=== PATIENT | female | born 1990 | race Caucasian/White ===

== ENCOUNTER 2022-05-24 13:19 | Emergency (ER) | payer OTHER, SELFPAY ==
--- NOTE | ~2022-05-24 | XR_ITS ---
EXAMINATION: XR chest 2V DATE: 05/24/2022 13:42 INDICATION: Productive cough TECHNIQUE: PA and lateral views of the chest are obtained. COMPARISON: None available FINDINGS: The lungs are free of acute opacities. No pleural effusion or pneumothorax. The cardiomedia stinal silhouette is normal. There is mild thoracic spondylosis. IMPRESSION: 1. No acute cardiopulmonary abnormality. Reviewed, dictated and finalized at location A.
--- NOTE | 2022-05-24 13:26 | ED.URI ---
HPI - URI/Sore Throat General Chief Complaint: Upper Respiratory Infection Stated Complaint: Cough,Congestion,Sore Throat Time Seen by Provider: 05/24/22 13:30 Source: patient and RN notes reviewed Mode of arrival: ambulatory Limitations: no limitations History of Present Illness HPI Narrative: 31 y/o female with history of IBS, GERD, Sjogren's, RA, presented for c/o chest congestion x1 week. Cough is productive of green sputum, but now having more difficulty expectorating. Endorses sore throat is improving, low fever of 99 as her normal is 97 per pt; and endorses fatigue and sob with stairs/exertion. Reports more diarrhea lately than her baseline. no cough or vomiting. Denies sick contacts. Taking hot tea and mucinex for symptoms. Has taken several negative covid tests at home, last one last night. Has not taken methotrexate in almost 2 weeks due to this illness. MD elicited complaint: cough Related Data Home Medications Medication Instructions Recorded Confirmed albuterol sulfate 90 mcg/actuation 1 inh inhalation Q4H PRN Shortness 05/14/22 05/24/22 aerosol inhaler (ProAir HFA) Of Breath Or Wheezing cholecalciferol (vitamin D3) 25 25 mcg PO DAILY 05/14/22 05/24/22 mcg (1,000 unit) capsule fexofenadine-pseudoephedrine ER 1 tablet PO DAILY 05/14/22 05/24/22 180 mg-240 mg tablet,ext.release 24 hr (Nuzhat-D 24 Hour) fluticasone propionate 50 1 spray intranasal BID 05/14/22 05/24/22 mcg/actuation nasal spray,suspension folic acid 1 mg tablet 1 mg PO DAILY 05/14/22 05/24/22 hydroxychloroquine 200 mg tablet 200 mg PO DAILY 05/14/22 05/24/22 (Plaquenil) Allergies Allergy/AdvReac Type Severity Reaction Status Date / Time fluticasone AdvReac Severe Swelling Verified 05/24/22 13:37 [From Advair Diskus] of Lip/Tongue/Throat salmeterol AdvReac Severe Swelling Verified 05/24/22 13:37 [From Advair Diskus] of Lip/Tongue/Throat Review of Systems Review of Systems: ROS negative except as in HPI PMFSH Past Medical History Medical History ADHD Chronic headaches GERD with esophagitis IBS (irritable bowel syndrome) Mixed connective tissue disease Ovarian cyst Family History Family History Father Brain cancer Alcohol abuse Mother Alcohol abuse Hypertension Depression Sibling Asthma Depression Social History Social History Social History: Smoking status: Never smoker Second hand tobacco smoke exposure: No Alcohol intake: never Substance use: never Substance use type: does not use Gender identity (if verbalized by the patient): Female Exam Narrative: GENERAL: well-appearing, EYES: conjunctivae clear ENT: Mucous membranes moist. TMs pearly burton with dull light reflex bilaterally; no tragal tenderness. Oropharynx normal without lesions or exudate CHEST: Clear to auscultation, breath sounds equal. No wheezing, rhonchi, rales, or stridor. No respiratory distress, speaks in full sentences. HEART: Regular rate and rhythm. No murmur heard. SKIN: Warm, dry, no rash. NEURO: Alert and oriented x3. Course Course Emergency Course: Patient is aware of diagnosis, understands and agrees to treatment plan. Anticipatory guidance given. Patient agrees to follow-up as directed and is aware of reasons to seek care at the emergency department. Portions of this record may have been created with voice recognition software Level of Care: Express Care Visit Vital Signs Vital signs: Vital Signs Temperature 98.6 F 05/24/22 13:27 Pulse Rate 81 05/24/22 13:27 Respiratory Rate 18 05/24/22 13:27 Blood Pressure 121/84 05/24/22 13:27 Pulse Oximetry 100 05/24/22 13:27 Oxygen Delivery Room Air 05/24/22 13:27 Temperature 98.6 F 05/24/22 13:27 Pulse Rate 81 05/24/22 13:27 Re
[2022-05-24 13:27] VITALS: BP 121/84; PULSE 81; RESP 18; TEMP 37; O2SAT 100
== END 2022-05-24 14:15 | disposition home or self-care (01) ==
PROVIDERS: Emergency Provider Nurse Practitioner Family; PCP Family Medicine
DX: B34.1 Enterovirus infection, unspecified (principal); K21.9 Gastro-esophageal reflux disease without esophagitis; F90.9 Attention-deficit hyperactivity disorder, unspecified type
CPT/HCPCS: 71046; 99213; G0463

== ENCOUNTER 2022-08-25 14:18 | Emergency (ER) | payer OTHER, SELFPAY ==
--- NOTE | ~2022-08-25 | XR_ITS ---
XR chest 1V portable DATE: 08/25/2022 16:14 INDICATION: Chest pain upon inspiration. Congestion. Covid-positive. TECHNIQUE: Portable upright AP chest on 08/25/2022 at 1559 hours COMPARISON: 05/24/2022 2 view chest FINDINGS: Normal heart size. No hilar or mediastinal enlargement. The lungs are clear of infiltrate o r consolidation. No pleural effusion or pulmonary vascular congestion or pneumothorax. Minimal dextro scoliosis of the thoracic spine. IMPRESSION: No active cardiopulmonary disease Reviewed, dictated and finalized at location B. ESS PUMPER
[2022-08-25 14:31] VITALS: BP 126/93; PULSE 120; RESP 20; TEMP 37.5; O2SAT 99
--- NOTE | 2022-08-25 15:37 | ED.URI ---
HPI - URI/Sore Throat General Chief Complaint: Upper Respiratory Infection Stated Complaint: chest pain-covid+ Time Seen by Provider: 08/25/22 15:24 History of Present Illness HPI Narrative: Pt recently diagnosed with covid again. Pt had covid 3 weeks ago and got better then began having body aches and cough and got tested yesterday and was positive. Pt says she is feeling worse today and is immune compromised due to her RA and just want to get checked. Pt has some chest pain mainly with cough. Pt had pneumonia with last time she had covid and wants to be safe. Related Data Home Medications Medication Instructions Recorded Confirmed albuterol sulfate 90 mcg/actuation 1 inh inhalation Q4H PRN Shortness 05/14/22 07/06/22 aerosol inhaler (ProAir HFA) Of Breath Or Wheezing cholecalciferol (vitamin D3) 25 25 mcg PO DAILY 05/14/22 07/06/22 mcg (1,000 unit) capsule fexofenadine-pseudoephedrine ER 1 tablet PO DAILY 05/14/22 07/06/22 180 mg-240 mg tablet,ext.release 24 hr (Nuzhat-D 24 Hour) fluticasone propionate 50 1 spray intranasal BID 05/14/22 07/06/22 mcg/actuation nasal spray,suspension trazodone 50 mg tablet 50 mg PO QHS PRN 06/16/22 07/06/22 Allergies Allergy/AdvReac Type Severity Reaction Status Date / Time fluticasone AdvReac Severe Swelling Verified 07/06/22 14:05 [From Advair Diskus] of Lip/Tongue/Throat salmeterol AdvReac Severe Swelling Verified 07/06/22 14:05 [From Advair Diskus] of Lip/Tongue/Throat prednisone AdvReac Headache Verified 08/25/22 16:58 Review of Systems Review of Systems: All systems reviewed & are unremarkable except as noted in HPI and below PMFSH Past Medical History Medical History ADHD Chronic headaches GERD with esophagitis IBS (irritable bowel syndrome) Mixed connective tissue disease Ovarian cyst Family History Family History Father Brain cancer Alcohol abuse Mother Alcohol abuse Hypertension Depression Sibling Asthma Depression Social History Social History (Updated 07/06/22 @ 14:03 by Sophie Callaway) Social History: Smoking status: Never smoker Second hand tobacco smoke exposure: No Alcohol intake: never Substance use: never Substance use type: does not use Gender identity (if verbalized by the patient): Female Exam Const: General: healthy appearing Nutritional Appearance: well nourished Orientation/consciousness: patient oriented x3 Limitations: no limitations HENMT: Head: normal to inspection Mouth: Yes Normal oral and palatal mucosa present Eyes: Conjunctivae: conjunctivae normal EOM: EOMs intact bilaterally Neck: Neck: normal visual inspection, no lymphadenopathy and no meningeal signs Resp: Effort & Inspection: normal respiratory effort Auscultation: clear to auscultation bilaterally Cardio: Rate: tachycardic Rhythm: regular rhythm GI: GI Palp: Yes Soft to palpation Auscultation: normal bowel sounds Skin: General skin exam: normal color Rashes: no rashes Wounds: no wounds Neuro: General: patient oriented x3, moves all extremities, no meningeal signs and no focal motor deficits Cranial nerves: Yes Nystagmus not present Speech: normal speech Extrem: General: normal to inspection and no clubbing, cyanosis or edema Psych: Mental Status: mental status grossly normal Affect: normal affect Attitude: cooperative Course Vital Signs Vital signs: Vital Signs Temperature 99.5 F 08/25/22 14:31 Pulse Rate 120 H 08/25/22 14:31 Respiratory Rate 20 08/25/22 14:31 Blood Pressure 126/93 H 08/25/22 14:31 Pulse Oximetry 99 08/25/22 14:31 Oxygen Delivery Room Air 08/25/22 14:31 Temperature 99.5 F 08/25/22 14:31 Pulse Rate 120 H 08/25/22 14:31 Respiratory Rate 20 08/25/22 14:31 Blood Pressure 126/93 H 08/25/22 14:31 Pulse Oximetry 99
--- NOTE | 2022-08-25 15:42 | ECG_ITS ---
Measurements Intervals [place] Rate: 96 P: 72 VT: 134 QRS: 58 QRSD: 97 T: 57 QT: 350 QTc: 443 Interpretive Statements SINUS RHYTHM INCOMPLETE RIGHT BUNDLE BRANCH BLOCK BORDERLINE ECG NO PREVIOUS ECG AVAILABLE FOR COMPARISON Electronically Signed On 08-25-2022 22:55:41 [employer]OP MANAGER by Jesse Min D.O.
[2022-08-25 16:26] LABS: Basophils Percent Auto 0.6 % (0.2-1.2); Eosinophils Absolute Auto 0.1 K/mm3 (0-0.3); Hematocrit 41.6 % (37.0-47.0); Hemoglobin 14.4 g/dL (12.0-15.0); Immature Granulocyte Absolute 0.01 K/mm3 (0.00-0.031); Immature Granulocyte Percent A 0.2 % (0-0.5); Lymphocytes Absolute Auto 0.28 K/mm3 (0.9-3.2); Lymphocytes Percent Auto 5.7 % (18.3-44.2); Mean Corpuscular HGB Conc 34.6 g/dl (32-36); Mean Corpuscular Hemoglobin 30.9 pg (26-34); Mean Corpuscular Volume 89.3 fl (80-100); Mean Platelet Volume 10.3 fl (7.4-10.4); Monocytes Absolute Auto 0.7 K/mm3 (0.1-0.6); Monocytes Percent Auto 14.5 % (2.6-8.5); Neutrophils Absolute Auto 3.8 K/mm3 (1.3-6.7); Platelet Count Result 189 k/mm3 (150-375); Red Blood Count 4.66 M/mm3 (4.2-5.4); Red Cell Distribution Width 11.6 % (11.5-14.5); White Blood Count 4.9 K/mm3 (4.5-10.0)
[2022-08-25 16:40] LABS: Alanine Aminotransferase 21 U/L (6-35); Albumin Level 4.4 g/dL (3.5-5.1); Anion Gap 6 mmol/L (8-16); Aspartate Amino Transferase 24 U/L (14-36); Bilirubin,Total 0.3 mg/dL (0.2-1.3); Blood Urea Nitrogen 6 mg/dL (7-17); Calcium 8.6 mg/dL (8.4-10.2); Carbon Dioxide 23 mmol/L (22-30); Chloride 103 mmol/L (98-107); Estimated CRCL calculation 76 ml/min; Estimated Glomerular Filt Rate > 60; Glucose 93 mg/dL (65-110); Potassium 4.4 mmol/L (3.4-5.0); Sodium 132 mmol/L (137-145)
[2022-08-25 16:57] LABS: Alkaline Phosphatase < 20 U/L (38-126)
[2022-08-25 17:02] LABS: Influenza A QL RT-PCR Negative (Negative); Influenza B QL RT-PCR Negative (Negative)
== END 2022-08-25 17:26 | disposition home or self-care (01) ==
PROVIDERS: Emergency Provider Emergency Medicine; PCP Family Medicine
DX: U07.1 COVID-19 (principal); M06.9 Rheumatoid arthritis, unspecified; M35.1 Other overlap syndromes; K21.00 Gastro-esophageal reflux disease with esophagitis, without bleeding; K58.9 Irritable bowel syndrome, unspecified; F90.9 Attention-deficit hyperactivity disorder, unspecified type; Z86.16 Personal history of COVID-19; I45.10 Unspecified right bundle-branch block
CPT/HCPCS: 36415; 71045; 80053; 85025; 87502; 93005; 99283

== ENCOUNTER 2022-11-03 12:49 | Outpatient (CLI) | payer OTHER, SELFPAY ==
--- NOTE | ~2022-11-03 | US_ITS ---
Pelvic ultrasound. Clinical History: Pelvic pain Technique: Realtime transabdominal and transvaginal scanning of the pelvis was performed. Color flow Doppler and Doppler spectral analysis were performed. Findings: The uterus is anteverted. The endometrial stripe has a thickness of 4 mm. No focal mass is identified. The right ovary measures 1.5 x 2.8 x 2.2 cm. No significant right ovarian or adnexal mass is seen. The left ovary measures 2.7 x 1.8 x 2.4 cm. No significant left ovarian or adnexal mass is seen. Vascular flow present in both ovaries. There is no evidence of free fluid in the cul de sac. Impression: Unremarkable pelvic ultrasound. Reviewed, dictated and finalized at [facility]. E CARPENTER HELPER Impression: Unremarkable pelvic ultrasound.
== END 2022-11-03 12:50 | disposition home or self-care (01) ==
PROVIDERS: PCP Family Medicine; Visit Provider Family Medicine
DX: R10.2 Pelvic and perineal pain (principal)
CPT/HCPCS: 76830; 76856

== ENCOUNTER 2022-12-16 09:00 | Outpatient (NON) | payer OTHER, SELFPAY | END 2022-12-16 09:01 | disposition home or self-care (01) | LOC: ANHLAB 12-17 07:59 | PROVIDERS: PCP Family Medicine; Visit Provider Internal Medicine Gastroenterology | DX: K58.9 Irritable bowel syndrome, unspecified (principal) | CPT/HCPCS: 88305 ==

== ENCOUNTER 2022-12-16 10:10 | Day surgery (SDC) | payer OTHER, SELFPAY ==
[2022-11-02 10:56] VITALS: BMI 22.6
[2022-12-01 09:42] VITALS: BMI 22.3
--- NOTE | 2022-12-15 15:52 | PM.HPGS ---
History of Present Illness History of Present Illness Consent: Risks, benefits, and alternatives have been discussed and questions answered. Patient agrees to proceed with procedure. Chief complaint: Dysphagia,Dyskinesia-Esophagus,Vomitting,IBS w/o D Narrative: Jenna Cox is a 32 year old female was referred because of difficulty swallowing and And some other gastrointestinal issues per for many years she will feel that food is getting caught in her throat or more often in her chest particularly things like bread or meat. She has had treatment for acid reflux in the past but the heartburn is not so bad now and therefore she is no longer on a PPI. He seemed that the PPI such as Nexium did help with her swallowing issues. She has lost about 60 lb but that was intentional.She has also had change in bowel habits. For several years he has had alternating loose and hard stools. occasionally she would see blood her stools. At 1 point a doctor told her she Was being treated for an ulcer but was not clear whether was a gastric ulcer or whether they may have thought she had colitis. Review of Systems Review of Systems: All systems reviewed & are unremarkable except as noted in HPI and below PMFSH Past Medical History Medical History ADHD Chronic headaches GERD with esophagitis IBS (irritable bowel syndrome) Mixed connective tissue disease Ovarian cyst Rheumatoid arthritis Sjogren's disease Surgical History Surgical History H/O colposcopy with cervical biopsy H/O sinus surgery Family History Family History Father Brain cancer Alcohol abuse Mother Alcohol abuse Hypertension Depression Sibling Asthma Depression Social History Social History Social History: Smoking status: Never smoker Second hand tobacco smoke exposure: No Alcohol intake: never Substance use: never Substance use type: does not use Living arrangements: with family Occupation/Education: occupation Gender identity (if verbalized by the patient): Female Sexual Orientation (if Verbalized by the Patient): Lesbian, [place], or Homosexual Spiritual care concerns: No Meds Home Medications and Allergies Home Medications Medication Instructions Recorded Confirmed Type cholecalciferol (vitamin D3) 25 25 mcg PO DAILY 05/14/22 12/16/22 History mcg (1,000 unit) capsule methotrexate sodium 2.5 mg tablet 2.5 mg PO WEEKLY #20 tabs 05/14/22 12/16/22 Rx oxybutynin chloride 5 mg 5 mg PO DAILY #90 tabs 06/16/22 12/16/22 Rx tablet,extended release 24 hr albuterol sulfate 90 mcg/actuation 1 inh inhalation Q4H PRN Shortness 09/02/22 12/16/22 Rx aerosol inhaler (ProAir HFA) Of Breath Or Wheezing #8.5 grams trazodone 50 mg tablet 50 mg PO QHS PRN insomnia #30 tabs 09/04/22 12/16/22 Rx dextroamphetamine-amphetamine 10 10 mg PO BID #60 tabs 11/16/22 12/16/22 Rx mg tablet (Adderall) folic acid 1 mg tablet See Rx Instructions .Route 11/16/22 12/16/22 Rx .COMPLEX #90 tabs hydroxychloroquine 200 mg tablet 300 mg PO DAILY 90 days #135 tabs 11/16/22 12/16/22 Rx (Plaquenil) norethindrone 1 mg-ethinyl 1 tablet PO DAILY #168 tabs 12/02/22 12/16/22 Rx estradiol 35 mcg tablet (Nortrel) ubrogepant 50 mg tablet (Ubrelvy) See Rx Instructions .Route 12/11/22 12/16/22 Rx .COMPLEX #7 tabs Allergies Allergy/AdvReac Type Severity Reaction Status Date / Time fluticasone AdvReac Severe Swelling Verified 12/16/22 11:22 [From Advair Diskus] of Lip/Tongue/Throat salmeterol AdvReac Severe Swelling Verified 12/16/22 11:22 [From Advair Diskus] of Lip/Tongue/Throat prednisone AdvReac Intermediate Dizziness Verified 12/16/22 11:22 Exam Const: General: alert Orientation/consciousness: patie
--- NOTE | 2022-12-16 07:15 | WPDANESEPPF ---
Anes - Initial Pre Proc Eval Procedure: Operation Date: 12/16/22 12:30 Proposed Procedures p Esophagogastroduodenoscopy - Lonnie Saab MD s Diagnostic Colonoscopy - Lonnie Saab MD Date/Time: 12/16/22 07:15 Surgeon: Lonnie Saab MD Pre Op Diagnosis: Dysphagia,Dyskinesia-Esophagus,Vomitting,IBS w/o D Patient Data Age: 32 Gender: F Height: 1.63 m Weight: 59 kg Allergies Allergy/AdvReac Type Severity Reaction Status Date / Time fluticasone AdvReac Severe Swelling Verified 12/16/22 11:22 [From Advair Diskus] of Lip/Tongue/Throat salmeterol AdvReac Severe Swelling Verified 12/16/22 11:22 [From Advair Diskus] of Lip/Tongue/Throat prednisone AdvReac Intermediate Dizziness Verified 12/16/22 11:22 Home Medications Medication Instructions Recorded Confirmed Type cholecalciferol (vitamin D3) 25 25 mcg PO DAILY 05/14/22 12/16/22 History mcg (1,000 unit) capsule methotrexate sodium 2.5 mg tablet 2.5 mg PO WEEKLY #20 tabs 05/14/22 12/16/22 Rx oxybutynin chloride 5 mg 5 mg PO DAILY #90 tabs 06/16/22 12/16/22 Rx tablet,extended release 24 hr albuterol sulfate 90 mcg/actuation 1 inh inhalation Q4H PRN Shortness 09/02/22 12/16/22 Rx aerosol inhaler (ProAir HFA) Of Breath Or Wheezing #8.5 grams trazodone 50 mg tablet 50 mg PO QHS PRN insomnia #30 tabs 09/04/22 12/16/22 Rx dextroamphetamine-amphetamine 10 10 mg PO BID #60 tabs 11/16/22 12/16/22 Rx mg tablet (Adderall) folic acid 1 mg tablet See Rx Instructions .Route 11/16/22 12/16/22 Rx .COMPLEX #90 tabs hydroxychloroquine 200 mg tablet 300 mg PO DAILY 90 days #135 tabs 11/16/22 12/16/22 Rx (Plaquenil) norethindrone 1 mg-ethinyl 1 tablet PO DAILY #168 tabs 12/02/22 12/16/22 Rx estradiol 35 mcg tablet (Nortrel) ubrogepant 50 mg tablet (Ubrelvy) See Rx Instructions .Route 12/11/22 12/16/22 Rx .COMPLEX #7 tabs Patient hx anesthesia problems: none Family hx anesthesia problems: none Results Review: All pre-operative results and documents have been reviewed as part of the pre-operative evaluation. PMFSH Past Medical History Medical History ADHD Chronic headaches GERD with esophagitis IBS (irritable bowel syndrome) Mixed connective tissue disease Ovarian cyst Rheumatoid arthritis Sjogren's disease Surgical History Surgical History H/O colposcopy with cervical biopsy H/O sinus surgery Family History Family History Father Brain cancer Alcohol abuse Mother Alcohol abuse Hypertension Depression Sibling Asthma Depression Social History Social History Social History: Smoking status: Never smoker Second hand tobacco smoke exposure: No Alcohol intake: never Substance use: never Substance use type: does not use Living arrangements: with family Occupation/Education: occupation Gender identity (if verbalized by the patient): Female Sexual Orientation (if Verbalized by the Patient): Lesbian, [place], or Homosexual Spiritual care concerns: No Anes - Eval Final PreProcedure Day of Procedure 12/16/22 07:15 Patient weight: normal Heart: regular rate and rhythm Lungs: clear to auscultation and normal air movement Airway: Mallampati scale class II Neurological: alert and oriented Last oral intake: >/= 8 hours ASA classification: III Emergent: no Anesthetic plan: proceed Anesthesia type and monitoring: general GIVS and standard monitoring Results Review: All pre-operative results and documents have been reviewed as part of the pre-operative evaluation. Informed Consent: The patient's anesthetic plan and its attendant risks and benefits were discussed with the patient/family/POA. Questions were solicited and answers provided to the satisfaction of the ector
[2022-12-16] MEDS: LACTATED RINGERS 1,000 ML 150 ML IV CONT (11:19)
[2022-12-16 11:20] VITALS: BP 140/91; PULSE 82; RESP 16; TEMP 37.2; O2SAT 100
[2022-12-16 13:07] VITALS: BP 126/101; PULSE 90; RESP 16; O2SAT 100
[2022-12-16 13:17] VITALS: BP 134/113; PULSE 80; RESP 16; O2SAT 100
[2022-12-16 13:27] VITALS: BP 140/96; PULSE 84; RESP 16; O2SAT 100
--- NOTE | 2022-12-16 13:28 | SUR.PHASEII ---
1307; DR MUIR AT BEDSIDE, AWARE OF BP 126/101. 1317; DR MUIR AWARE OF BP 134/113
--- NOTE | 2022-12-16 13:29 | SUR.PHASEII ---
PT AWAKE AND ALERT. EATING AND DRINKING. DENIES PAIN OR NAUSEA. FRIEND AT BEDSIDE.
--- NOTE | 2022-12-16 15:01 | WPDANESPN ---
Anes - Prog Note Post-Op Date/Time: 12/16/22 15:01 Vital Signs: Last Vital Signs Temp 37.2 C 12/16/22 11:20 Pulse 84 12/16/22 13:27 Resp 16 12/16/22 13:27 BP 140/96 H 12/16/22 13:27 Pulse Ox 100 12/16/22 13:27 O2 Del Method Room Air 12/16/22 13:27 Pain Score (VAS): 0 I/O: Intake & Output 12/15/22 12/16/22 12/16/22 23:59 07:59 15:59 Intake Total 800 Balance 800 Patient Feedback: Patient satisfied with anesthetic care.
== END 2022-12-16 13:50 | disposition home or self-care (01) ==
PROVIDERS: PCP Family Medicine; Visit Provider Internal Medicine Gastroenterology
PROC: 0DJ08ZZ Inspection of Upper Intestinal Tract, Via Natural or Artificial Opening Endoscopic (ICD-10-PCS; CPT 43235; principal; 2022-12-16 12:30)
PROC: 0DJD8ZZ Inspection of Lower Intestinal Tract, Via Natural or Artificial Opening Endoscopic (ICD-10-PCS; CPT 45378; 2022-12-16 12:30)
DX: R13.10 Dysphagia, unspecified (principal)
CPT/HCPCS: 45380; 43239

== ENCOUNTER → 2023-07-23 09:38 | Outpatient (CLI) | payer OTHER, SELFPAY ==
--- NOTE | ~2023-07-23 | CT_ITS ---
EXAMINATION: CT brain wo con DATE: 07/23/2023 10:07 INDICATION: Chronic headache. TECHNIQUE: Computed tomography (CT) of the head was performed without intravenous contrast. The mA wa s adjusted according to patient size. Iterative reconstruction technique was employed. The dose-lengt h product was 599.57 mGy-cm. COMPARISON: None FINDINGS: There is no intracranial hemorrhage, acute infarction, or abnormal intracranial mass lesion . The ventricles are normal in size. There are changes of ethmoidectomies and uncinectomies. There is mild mucosal thickening in right maxillary sinus. The mastoid air cells are normal. The orbits are n ormal. IMPRESSION: 1. Normal brain. Reviewed, dictated and finalized at location E. IMPRESSION: 1. Normal brain.
== END ==
PROVIDERS: PCP Student in an Organized Health Care Education/Training Program; Visit Provider Student in an Organized Health Care Education/Training Program
DX: R51.9 Headache, unspecified (principal); G89.29 Other chronic pain; Z80.9 Family history of malignant neoplasm, unspecified
CPT/HCPCS: 70450

== ENCOUNTER 2023-08-09 13:25 | Outpatient (CLI) | payer OTHER, SELFPAY ==
--- NOTE | 2023-08-09 13:30 | ECG_ITS ---
Measurements Intervals [place] Rate: 80 P: 72 NH: 129 QRS: 67 QRSD: 106 T: 58 QT: 386 QTc: 445 Interpretive Statements SINUS RHYTHM POSSIBLE LEFT ATRIAL ENLARGEMENT INCOMPLETE RIGHT BUNDLE BRANCH BLOCK BASELINE ARTIFACT- I, II, III, AVR, AVL, AVF, V1-V6 BORDERLINE ECG COMPARED TO ECG 08/25/2022 16:09:47 NO SIGNIFICANT CHANGES Electronically Signed On 08-09-2023 13:52:54 ROLL FINISHER by Jesse Min D.O.
[2023-08-09 13:56] LABS: Hematocrit 41.4 % (37.0-47.0); Hemoglobin 13.6 g/dL (12.0-15.0); Mean Corpuscular HGB Conc 32.9 g/dl (32-36); Mean Corpuscular Hemoglobin 30.4 pg (26-34); Mean Corpuscular Volume 92.4 fl (80-100); Mean Platelet Volume 10.2 fl (7.4-10.4); Platelet Count Result 285 k/mm3 (150-375); Red Blood Count 4.48 M/mm3 (4.2-5.4); Red Cell Distribution Width 12.4 % (11.5-14.5); White Blood Count 7.7 K/mm3 (4.5-10.0)
== END 2023-08-09 13:26 | disposition home or self-care (01) ==
LOC: ANHSURGERY 13:36
PROVIDERS: PCP Family Medicine; Visit Provider Student in an Organized Health Care Education/Training Program
DX: Z01.818 Encounter for other preprocedural examination (principal); R10.2 Pelvic and perineal pain; I49.9 Cardiac arrhythmia, unspecified; I45.10 Unspecified right bundle-branch block; R94.31 Abnormal electrocardiogram [ECG] [EKG]
CPT/HCPCS: 36415; 85027; 86850; 86900; 86901; 93005

== ENCOUNTER 2023-08-13 00:07 | Day surgery (SDC) | payer OTHER, SELFPAY ==
[2023-08-06 13:25] VITALS: BMI 22.0
--- NOTE | 2023-08-06 13:56 | PC.NURSE ---
Report to the Outpatient Waiting Room, entrance under the green pavilion located off [facility], at time 10am on date 08/13/23 Planned Procedure Time: 1200 Time changes happen often and if your time is changed the preop area will call you the afternoon before. - You and your visitor will be asked to self-screen and do not enter if you have any COVID symptoms. - A mask is optional within the hospital at this time. Patients may have clear liquids (water, carbonated beverages, clear teas, apple juice) until 3 hours prior to surgery with a maximum of 20 ounces. - No food from midnight until time of surgery Take the following medications with a SIP of water the morning of surgery: per patient will not take any medications day of surgery DO NOT STOP ANY OF YOUR OTHER PRESCRIPTION MEDICATIONS PRIOR TO SURGERY ?EXCEPT THE FOLLOWING Medications to discontinue per physician - vitamins Date to take last dose 08/10/23 patient will contact RA provider about RA medications to see if need to hold Please no make-up, nail yi, hairspray, perfume, deodorant, or body powder the day of surgery. No jewelry (including any body piercings) or valuables the day of surgery, leave them at home. Please take a shower or bath the night before, or the morning of, surgery with an antibacterial soap. Wear comfortable, loose fitting clothing. - Jewelry must be removed prior to entering the operating room. Rings and piercings that are not removed may be cut off. - The hospital will not accept responsibility for valuables. - Please leave all valuables, including medications, at home the day of surgery. If you are going home after surgery, a licensed speedboat driver must drive you home. - NO public transportation without another adult if you receive anesthesia. - We recommend that an adult stay with you for 24 hours following discharge. - We also recommend that you do not drive, make important decision, drink alcoholic beverages, or take any drugs that were not prescribed by your health care provider for at least 24 hours after your discharge time. Follow any additional instructions given to you from your surgeon. If you or anyone in your household have experienced Covid symptoms in the past week, please notify your surgeon or the nurse liaison at the phone number below for possible testing. Telephone instructions given to patient and asked if any additional questions and then verbalized understanding. Patient advised to call surgeon office or pre surgery nurse liaison [phone] if any additional questions.
[2023-08-13] VITALS (8 sets, daily range): BP systolic 120–158; BP diastolic 77–97; PULSE 55–103; RESP 12–18; TEMP 36.7–36.9; O2SAT 100
--- NOTE | 2023-08-13 07:27 | PM.IMHP ---
H&P: HPI History of Present Illness Date/Time: 08/13/23 07:28 Chief Complaint: pelvic pain dysmenorrhea Narrative: 32-year-old female who presents for diagnostic laparoscopy with possible fulguration of endometriosis for chronic pelvic pain. Patient has dealt with painful periods chronic pelvic pain for some time. Patient has tried hormonal contraceptives With minimal relief of symptoms. Patient elects for exploratory surgery to evaluate for endometriosis. Review of Systems Cardiovascular: Cardiovascular: Denies chest pain, Denies leg edema, Denies palpitations, Denies dyspnea and Denies dyspnea on exertion Respiratory: Respiratory: Denies cough, Denies dyspnea and Denies dyspnea on exertion Gastrointestinal: Gastrointestinal: Denies abdominal pain, Denies constipation, Denies diarrhea, Denies nausea and Denies vomiting Genitourinary: Genitourinary: Denies hematuria, Denies urinary frequency, Denies dysuria, Denies pelvic pain, Denies urinary incontinence and Denies vaginal discharge Neurologic: Reports system reviewed and no additional complaints, except as documented Psychiatric: Psychiatric: Reports no additional psychiatric complaints Endocrine: Endocrine: Denies palpitations [facility] Past Medical History Medical History ADHD Chronic headaches GERD with esophagitis IBS (irritable bowel syndrome) Mixed connective tissue disease Ovarian cyst Rheumatoid arthritis Sjogren's disease Surgical History Surgical History H/O colposcopy with cervical biopsy H/O sinus surgery Family History Family History Father Brain cancer Alcohol abuse Heart disease Mother Alcohol abuse Hypertension Depression Asthma Sibling Asthma Depression Grandparent Alcohol abuse Asthma Diabetes mellitus Hypertension Depression Grandparent Alcohol abuse Social History Social History Social History: Smoking status: Never smoker Second hand tobacco smoke exposure: No Alcohol intake: never Substance use: never Substance use type: does not use Lack of Transportation: No Lack of Food: Never True Current Housing: I Have Housing Concerned About Future Housing: No Difficulty Paying Gas/Electric Bills: No Difficulty Paying for Meds: No Currently Unemployed: No Education: Master's Degree or Higher Difficulty w/ Childcare or Family Care: No Living arrangements: alone Occupation/Education: occupation Gender identity (if verbalized by the patient): Female Sexual Orientation (if Verbalized by the Patient): Lesbian, Goodrich, or Homosexual Spiritual care concerns: No Meds Home Medications and Allergies Home Medications Medication Instructions Recorded Confirmed Type norethindrone 1 mg-ethinyl 1 tablet PO DAILY #168 tabs 12/02/22 08/06/23 Rx estradiol 35 mcg tablet (Nortrel) oxybutynin chloride 5 mg See Rx Instructions .Route 03/15/23 08/06/23 Rx tablet,extended release 24 hr .COMPLEX #90 tabs cholecalciferol (vitamin D3) 50 50 mcg PO DAILY 04/15/23 08/06/23 History mcg (2,000 unit) capsule fexofenadine 180 mg tablet 180 mg PO DAILY 04/15/23 08/06/23 History (Nuzhat Hives) lisinopril 2.5 mg tablet 2.5 mg PO DAILY 04/15/23 08/06/23 History hydroxychloroquine 300 mg tablet 300 mg PO DAILY #90 tabs 04/27/23 08/06/23 Rx folic acid 1 mg tablet See Rx Instructions .Route 05/25/23 08/06/23 Rx .COMPLEX #90 tabs atogepant 60 mg tablet (Qulipta) 60 mg PO DAILY #30 tabs 07/13/23 08/06/23 Rx dextroamphetamine-amphetamine 10 10 mg PO BID #60 tabs 07/13/23 08/06/23 Rx mg tablet (Adderall) methotrexate sodium 2.5 mg tablet 2.5 mg PO WEEKLY 07/13/23 08/06/23 History ubrogepant 100 mg tablet (Ubrelvy) 100 mg PO ONCE PRN migraine 07/13/23 08/06/23 Rx headache #1
--- NOTE | 2023-08-13 10:41 | WPDANESEPPF ---
Anes - Initial Pre Proc Eval Procedure: Operation Date: 08/13/23 12:00 Proposed Procedures p Diagnostic Laparoscopy, Fulguration of Endometriosis - Aubrey Do MD Date/Time: 08/13/23 10:41 Surgeon: Aubrey Do MD Pre Op Diagnosis: pelvic pain Patient Data Age: 32 Gender: F Height: 1.65 m Weight: 59.41 kg Last Vital Signs Temp 36.9 C 08/13/23 10:19 Pulse 61 08/13/23 10:19 Resp 16 08/13/23 10:19 BP 121/81 08/13/23 10:19 Pulse Ox 100 08/13/23 10:19 O2 Del Method Room Air 08/13/23 10:19 Allergies Allergy/AdvReac Type Severity Reaction Status Date / Time fluticasone AdvReac Severe Swelling Verified 08/06/23 13:17 [From Advair Diskus] of Lip/Tongue/Throat salmeterol AdvReac Severe Swelling Verified 08/06/23 13:17 [From Advair Diskus] of Lip/Tongue/Throat prednisone AdvReac Intermediate Dizziness Verified 08/06/23 13:17 Home Medications Medication Instructions Recorded Confirmed Type norethindrone 1 mg-ethinyl 1 tablet PO DAILY #168 tabs 12/02/22 08/06/23 Rx estradiol 35 mcg tablet (Nortrel) oxybutynin chloride 5 mg See Rx Instructions .Route 03/15/23 08/06/23 Rx tablet,extended release 24 hr .COMPLEX #90 tabs cholecalciferol (vitamin D3) 50 50 mcg PO DAILY 04/15/23 08/06/23 History mcg (2,000 unit) capsule fexofenadine 180 mg tablet 180 mg PO DAILY 04/15/23 08/06/23 History (Nuzhat Hives) lisinopril 2.5 mg tablet 2.5 mg PO DAILY 04/15/23 08/06/23 History hydroxychloroquine 300 mg tablet 300 mg PO DAILY #90 tabs 04/27/23 08/06/23 Rx folic acid 1 mg tablet See Rx Instructions .Route 05/25/23 08/06/23 Rx .COMPLEX #90 tabs atogepant 60 mg tablet (Qulipta) 60 mg PO DAILY #30 tabs 07/13/23 08/06/23 Rx dextroamphetamine-amphetamine 10 10 mg PO BID #60 tabs 07/13/23 08/06/23 Rx mg tablet (Adderall) methotrexate sodium 2.5 mg tablet 2.5 mg PO WEEKLY 07/13/23 08/06/23 History ubrogepant 100 mg tablet (Ubrelvy) 100 mg PO ONCE PRN migraine 07/13/23 08/06/23 Rx headache #14 tabs azelastine 137 mcg (0.1 %) nasal See Rx Instructions .Route 07/22/23 08/06/23 Rx spray aerosol .COMPLEX #30 mL Patient hx anesthesia problems: none Family hx anesthesia problems: none Results Review: All pre-operative results and documents have been reviewed as part of the pre-operative evaluation. [facility] Past Medical History Medical History ADHD Chronic headaches GERD with esophagitis IBS (irritable bowel syndrome) Mixed connective tissue disease Ovarian cyst Rheumatoid arthritis Sjogren's disease Surgical History Surgical History H/O colposcopy with cervical biopsy H/O sinus surgery Family History Family History Father Brain cancer Alcohol abuse Heart disease Mother Alcohol abuse Hypertension Depression Asthma Sibling Asthma Depression Grandparent Alcohol abuse Asthma Diabetes mellitus Hypertension Depression Grandparent Alcohol abuse Social History Social History Social History: Smoking status: Never smoker Second hand tobacco smoke exposure: No Alcohol intake: never Substance use: never Substance use type: does not use Lack of Transportation: No Lack of Food: Never True Current Housing: I Have Housing Concerned About Future Housing: No Difficulty Paying Gas/Electric Bills: No Difficulty Paying for Meds: No Currently Unemployed: No Education: Master's Degree or Higher Difficulty w/ Childcare or Family Care: No Living arrangements: alone Occupation/Education: occupation Gender identity (if verbalized by the patient): Female Sexual Orientation (if Verbalized by the Patient): Lesbian, Goodrich, or Homosexual Spiritual care concerns: No Anes - Eval Final P
[2023-08-13] MEDS: SCOPOLAMINE 1.5 MG PATCH TRANSDERM (10:57)
[2023-08-13] MEDS: LACTATED RINGERS 1,000 ML 30 ML IV CONT ×2 (10:57→13:50)
[2023-08-13] MEDS: ACETAMINOPHEN 500 MG TABLET 1000 MG PO (10:58)
[2023-08-13] MEDS: KETOROLAC 15 MG/ML VIAL (*BKC) IV PUSH (10:58)
--- NOTE | 2023-08-13 11:39 | WPDHPUPDATE1 ---
History and Physical Update Update Date/Time: 08/13/23 11:39 History and Physical has been reviewed, including an updated exam of the patient. There are NO changes in the patient's condition. Risks, benefits, and alternatives have been discussed and questions answered. Patient agrees to proceed with procedure.
[2023-08-13] MEDS: LIDO 1%/EPINEPHRINE 1:100,000 50 ML VIAL 10 ML INFILTRATE (12:46)
--- NOTE | 2023-08-13 12:58 | P.OP_ITS ---
Procedure Note - Detailed Date of Procedure 08/13/23 Pre-op Diagnosis pelvic pain Dysmenorrhea Post-op Diagnosis Same Procedure Performed Diagnostic laparoscopy Lysis of adhesions Uterine serosa biopsy Surgeon Aubrey Do MD Anesthesia General Indications Pelvic pain, dysmenorrhea Findings Filmy adhesions between the colon and the left adnexa/pelvic sidewall Decidual changes noted on the uterine serosa Normal-appearing fallopian tubes bilaterally Right adnexa normal appearing Description of Procedure The patient was taken to the operating room where general endotracheal anesthesia was undertaken and found to be adequate. She was then prepped and draped in the dorsal lithotomy position and placed in adjustable stirrups. A pre-operative team brief and a time out were completed. A catheter was placed to drain the bladder. Retractors were placed placed in the vagina and the cervix was identified. An acorn uterine manipulator was placed. A 5 mm skin incision was made in the umbilicus. A 5 mm optical trocar was then placed with direct camera visualization of the abdominal layers during placement. The trocar stylet was removed and the camera was used to verify intra-abdominal placement. CO2 ins ufflation was then connected and resumed. The pelvis was inspected. The above findings were noted. A 2nd 5 mm suprapubic port was placed to help assist with lysis of adhesion bands for better visual ization of the left adnexa. Filmy adhesions were taken down from the colon and the left adnexa. Normal anatomy was restored. Pelvic survey was again performed. Some areas of decidual change were noted on the posterior uterine serosa. Biopsy of this area was performed. Tissue specimen was sent for pathology. Hemostasis of the biopsy area was obtained with electrocautery. All surgical beds were noted to be hemostatic. Sponge, lap and needle counts were correct. All skin incisions were closed with 4-0 Vicryl suture subcuticularly. The uterine manipulator was removed from the uterus. Hemostasis of the cervix was noted. The urinary catheter was removed. The patient was taken out of dorsal lithotomy position. Anesthesia was reversed. The patient was taken to the PACU. Estimated Blood Loss 5 Urine Output 10 Drains No Packing No Pathology Yes (Uterine serosa biopsy) Complications No immediate complications Condition Stable Disposition PACU [facility] Billing Surgery - Charge Forward: Surgery Billing
[2023-08-13] MEDS: fentaNYL CITRATE INJ (*CRX) 100 MCG/2 ML VIAL 25 MCG IV PUSH ×4 (13:25→13:40)
[2023-08-13] MEDS: oxyCODONE HCL (*CRX) 5 MG TAB IR PO (14:10)
== END 2023-08-13 15:08 | disposition home or self-care (01) ==
PROVIDERS: PCP Family Medicine; Visit Provider Student in an Organized Health Care Education/Training Program
PROC: (CPT 49320; principal; 2023-08-13 12:00)
DX: N73.6 Female pelvic peritoneal adhesions (postinfective) (principal); F90.9 Attention-deficit hyperactivity disorder, unspecified type; M06.9 Rheumatoid arthritis, unspecified; M35.00 Sjogren syndrome, unspecified; Z79.631 Long term (current) use of antimetabolite agent
CPT/HCPCS: 49321; 36415; 85027; 86850; 86900; 86901; 88304; 93005; A9270; J0330; J1885; J2250; J2590; J2704; J3010; J7120

== ENCOUNTER 2024-05-26 19:22 | Emergency (ER) | payer OTHER, SELFPAY ==
--- NOTE | ~2024-05-26 | XR_ITS ---
EXAMINATION: XR chest 2V DATE: 05/26/2024 19:54 INDICATION: Cough. TECHNIQUE: Frontal and lateral views of the chest were obtained. COMPARISON: Chest single view 08/25/2022 FINDINGS: There is no pneumonia, pleural effusion, or pneumothorax. The heart size is normal. There i s kyphosis of thoracic spine with mild chronic anterior wedging of multiple vertebral bodies. IMPRESSION: 1. No acute cardiopulmonary disease. Reviewed, dictated and finalized at location A.
[2024-05-26 19:35] VITALS: BP 117/85; PULSE 87; RESP 16; TEMP 36.7; O2SAT 100
--- NOTE | 2024-05-26 19:41 | ED.URI ---
HPI - URI/Sore Throat General Chief Complaint: Upper Respiratory Infection Stated Complaint: Cough Time Seen by Provider: 05/26/24 19:41 Source: patient Mode of arrival: ambulatory Limitations: no limitations History of Present Illness HPI Narrative: 33-year-old presents stating she had COVID approximately 3 weeks ago. Patient states that she had a sinus infection after COVID. Saw an ENT and was given 7 days of Bactrim. States that sinus congestion has resolved. Patient now complaining of cough, chest congestion, tightness in chest with coughing. Afebrile. All systems reviewed and negative except as noted above. Related Data Home Medications Medication Instructions Recorded Confirmed cholecalciferol (vitamin D3) 50 50 mcg PO DAILY 04/15/23 05/26/24 mcg (2,000 unit) capsule fexofenadine 180 mg tablet 180 mg PO DAILY 04/15/23 05/26/24 (Nuzhat Hives) methotrexate sodium 2.5 mg tablet 2.5 mg PO WEEKLY 07/13/23 05/26/24 Allergies Allergy/AdvReac Type Severity Reaction Status Date / Time fluticasone Allergy Severe Swelling Verified 05/26/24 19:34 [From Advair Diskus] of Lip/Tongue/Throat salmeterol Allergy Severe Swelling Verified 05/26/24 19:34 [From Advair Diskus] of Lip/Tongue/Throat prednisone AdvReac Intermediate Dizziness Verified 05/26/24 19:34 Review of Systems Review of Systems: CONSTITUTIONAL: Denies fever, chills, or sweats. EYES: Denies visual changes, redness, or discharge. ENT: Denies rhinorrhea, congestion, sore throat, or otalgia. CARDIOVASCULAR: Denies chest pain, palpitations, or edema. RESPIRATORY: Reports cough, chest congestion. Denies dyspnea. GASTROINTESTINAL: Denies abdominal pain, nausea, vomiting, or diarrhea. GENITOURINARY: Denies dysuria or hematuria. SKIN: Denies rash or itching. MUSCULOSKELETAL: Denies back pain, joint pain, or myalgia. NEUROLOGIC: Denies headache, numbness, or weakness. PSYCHIATRIC: Denies anxiety or depression. All other systems reviewed are negative, except as documented in HPI. [facility] Past Medical History Medical History ADHD Chronic headaches GERD with esophagitis IBS (irritable bowel syndrome) Mixed connective tissue disease Ovarian cyst Rheumatoid arthritis Sjogren's disease Surgical History Surgical History H/O colposcopy with cervical biopsy H/O laparoscopy lysis of adhesions H/O sinus surgery Family History Family History Father Brain cancer Alcohol abuse Heart disease Mother Alcohol abuse Hypertension Depression Asthma Sibling Asthma Depression Grandparent Alcohol abuse Asthma Diabetes mellitus Hypertension Depression Grandparent Alcohol abuse Social History Social History Social History: Smoking status: Never smoker Second hand tobacco smoke exposure: No Alcohol intake: never Substance use: never Substance use type: does not use Do You Feel Safe in your Home?: Yes Lack of Transportation: No Lack of Food: Never True Current Housing: I Have Housing Concerned About Future Housing: No Difficulty Paying Gas/Electric Bills: No Difficulty Paying for Meds: No Currently Unemployed: No Education: Master's Degree or Higher Difficulty w/ Childcare or Family Care: No Living arrangements: alone 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 There is no relevant family history pertinent to the presenting complaint. Exam Narrative: Amparo
== END 2024-05-26 20:15 | disposition home or self-care (01) ==
PROVIDERS: Emergency Provider Nurse Practitioner Family; PCP Family Medicine
DX: J20.9 Acute bronchitis, unspecified (principal); K21.00 Gastro-esophageal reflux disease with esophagitis, without bleeding; M06.9 Rheumatoid arthritis, unspecified; M35.00 Sjogren syndrome, unspecified; M35.1 Other overlap syndromes; Z86.16 Personal history of COVID-19
CPT/HCPCS: 71046; 99213; G0463

== ENCOUNTER 2024-08-14 11:05 | Outpatient (CLI) | payer OTHER, SELFPAY ==
--- NOTE | ~2024-08-14 | XR_ITS ---
XR hip LT min 2V Ordering provider: Jasmina Thomas PA-C History: . M25.552 - Pain in left hip . Comparison: None. FINDINGS: BONES: No acute fracture or dislocation. HIP JOINT SPACES: Normal. PUBIC SYMPHYSIS: Normal. SOFT TISSUES: Normal. IMPRESSION: No acute osseous abnormality pelvis and left hip. Reviewed, dictated and finalized at location A. GY ADMINISTRATOR
--- NOTE | ~2024-08-14 | XR_ITS ---
3 VIEWS LUMBAR SPINE Ordering provider: Jasmina Thomas PA-C History: . M54.50 - Low back pain, unspecified . Comparison: None. FINDINGS: VERTEBRAL BODIES: No visible fracture or subluxation. Mild levoscoliosis. DISK SPACES: Normal. SOFT TISSUES: Normal. Bilateral sacroiliacs. IMPRESSION: No acute osseous abnormality lumbar spine. Reviewed, dictated and finalized at location A. N OPERATIONS SUPERVISOR
--- NOTE | ~2024-08-14 | XR_ITS ---
XR shoulder RT min 2V Ordering provider: Jasmina Thomas PA-C History: . M25.511 - Pain in right shoulder . Comparison: None. FINDINGS: BONES: No acute fracture or dislocation. JOINT SPACES: The acromioclavicular joint is normal. The glenohumeral joint is normal. SOFT TISSUES: Normal. IMPRESSION: No acute osseous abnormality right shoulder. Reviewed, dictated and finalized at location A. NTIFIC INFORMATICS ANALYST
== END 2024-08-14 11:06 | disposition home or self-care (01) ==
LOC: MICIMG 11:07
PROVIDERS: PCP Family Medicine; Visit Provider Physician Assistant
DX: M54.50 Low back pain, unspecified (principal); M25.511 Pain in right shoulder; M25.552 Pain in left hip
CPT/HCPCS: 72100; 73030; 73502

== ENCOUNTER 2024-09-02 14:33 | Emergency (ER) | payer OTHER, SELFPAY ==
[2024-09-02 14:42] VITALS: BP 122/86; PULSE 77; RESP 18; TEMP 36.9; O2SAT 100
--- NOTE | 2024-09-02 15:14 | ED_ITS ---
HPI - General Adult General Chief complaint: Skin/Abscess/Foreign Body Stated complaint: sore throat Time Seen by Provider: 09/02/24 15:14 Source: patient Mode of arrival: ambulatory Limitations: no limitations History of Present Illness HPI narrative: 33-year-old female patient presents to the [facility] with complaints sore throat and mucus on the throat . For the past couple weeks. Patient states that she also recently had a rash that came about and no wherein did see her labor economics teacher that did biopsy and they are waiting for the biopsy. Patient states she does take antihistamines every day and does not seem to be helping. Denies fevers body aches or chills she is aware of. Related Data Home Medications Medication Instructions Recorded Confirmed cholecalciferol (vitamin D3) 50 50 mcg PO DAILY 04/15/23 09/02/24 mcg (2,000 unit) capsule fexofenadine 180 mg tablet 180 mg PO DAILY 04/15/23 09/02/24 (Nuzhat Hives) methotrexate sodium 2.5 mg tablet 2.5 mg PO WEEKLY 07/13/23 09/02/24 etanercept 25 mg/0.5 mL 25 mg subcut WEEKLY 08/14/24 09/02/24 subcutaneous solution (Enbrel) Allergies Allergy/AdvReac Type Severity Reaction Status Date / Time fluticasone Allergy Severe Swelling Verified 09/02/24 15:06 [From Advair Diskus] of Lip/Tongue/Throat salmeterol Allergy Severe Swelling Verified 09/02/24 15:06 [From Advair Diskus] of Lip/Tongue/Throat prednisone AdvReac Intermediate Dizziness Verified 09/02/24 15:06 Review of Systems Review of Systems: CONSTITUTIONAL: Denies fever, chills, or sweats. EYES: Denies visual changes, redness, or discharge. ENT: Denies rhinorrhea, congestion, Positive sore throat, denies otalgia. CARDIOVASCULAR: Denies chest pain, palpitations, or edema. RESPIRATORY: Denies cough or dyspnea. GASTROINTESTINAL: Denies abdominal pain, nausea, vomiting, or diarrhea. GENITOURINARY: Denies dysuria or hematuria. SKIN: positive rash , denies itching. MUSCULOSKELETAL: Denies back pain, joint pain, or myalgia. NEUROLOGIC: Denies headache, numbness, or weakness. PSYCHIATRIC: Denies anxiety or depression. [facility] Past Medical History Medical History ADHD Chronic headaches GERD with esophagitis IBS (irritable bowel syndrome) Mixed connective tissue disease Ovarian cyst Rheumatoid arthritis Sjogren's disease Surgical History Surgical History H/O colposcopy with cervical biopsy H/O laparoscopy lysis of adhesions H/O sinus surgery Family History Family History Father Brain cancer Alcohol abuse Heart disease Mother Alcohol abuse Hypertension Depression Asthma Sibling Asthma Depression Grandparent Alcohol abuse Asthma Diabetes mellitus Hypertension Depression Grandparent Alcohol abuse Social History Social History Social History: Smoking status: Never smoker Second hand tobacco smoke exposure: No Alcohol intake: never Substance use: never Substance use type: does not use Do You Feel Safe in your Home?: Yes Lack of Transportation: No Lack of Food: Never True Current Housing: I Have Housing Concerned About Future Housing: No Difficulty Paying Gas/Electric Bills: No Difficulty Paying for Meds: No Currently Unemployed: No Education: Master's Degree or Higher Difficulty w/ Childcare or Family Care: No Living arrangements: alone 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 There is no relevant family history pertinent to the presenting complaint. Exam Narrative: GENERAL: Well-appearing, well-nourished, and in no acute distress. HEAD: Normocephalic, atraumatic. EYES: PERRLA and EOMI. ENT: Nares clear, no rhinorrhea or epistaxis. Mucous membranes moist. posterior pharynx with no erythema, tonsillar enlargement, exudates or lesions present. Bilateral TMs are clear no erythema or foreign bodies the canal. NECK: Supple. No lymphadenopathy CHEST: Clear to auscultation. No respiratory distress. HEART: Regular rate and rhythm. No murmur heard. Normal peripheral pulses. ABDOMEN: Soft, nontender, nondistended, normal active bowel sounds. EXTREMITIES: Normal range of motion. No edema. SKIN: Warm, dry, Patient has a generalized maculopapular rash noted from the neck down. NEURO: No focal deficits. Alert and oriented x3. Course Course Level of Care: Express Care Visit Vital Signs Vital signs: Vital Signs Temperature 36.9 C 09/02/24 14:42 Pulse Rate 77 09/02/24 14:42 Respiratory Rate 18 09/02/24 14:42 Blood Pressure 122/86 09/02/24 14:42 Pulse Oximetry 100 09/02/24 14:42 Oxygen Delivery Room Air 09/02/24 14:42 Temperature 36.9 C 09/02/24 14:42 Pulse Rate 77 09/02/24 14:42 Respiratory Rate 18 09/02/24 14:42 Blood Pressure 122/86 09/02/24 14:42 Pulse Oximetry 100 09/02/24 14:42 Oxygen Delivery Room Air 09/02/24 14:42 Vital signs reviewed Medical Decision Making MDM Narrative Medical decision making narrative: Plan care for patients to test her for today for strep if this is negative may consider testing her for mono. Will reassess patient once this has resulted. Differential Diagnosis Differential Diagnosis: differential diagnosis: Viral pharyngitis, pharyngitis, group A strep, infectious mononucleosis, gonococcal pharyngitis, exudative pharyngitis, oral candidiasis. Chronic allergies, postnasal drip, GERD, abscess formation, but glottitis, retropharyngeal abscess formation, or airway obstruction. Vital Signs Vital Signs: Vital Signs Temperature 36.9 C 09/02/24 14:42 Pulse Rate 77 09/02/24 14:42 Respiratory Rate 18 09/02/24 14:42 Blood Pressure 122/86 09/02/24 14:42 Pulse Oximetry 100 09/02/24 14:42 Oxygen Delivery Room Air 09/02/24 14:42 Temperature 36.9 C 09/02/24 14:42 Pulse Rate 77 09/02/24 14:42 Respiratory Rate 18 09/02/24 14:42 Blood Pressure 122/86 09/02/24 14:42 Pulse Oximetry 100 09/02/24 14:42 Oxygen Delivery Room Air 09/02/24 14:42 Lab Data Labs: Lab Results 09/02/24 Range/Units 15:21 POC Grp A Strep Screen Positive (Negative) Critical Care Time Critical Care Time Critical Care Time: No Discharge Plan Discharge Clinical Impression: Acute streptococcal pharyngitis Patient Disposition: Home, Self-Care Condition: Stable Instructions: Antibiotic Form, Strep Throat (ED) Additional Instructions: -Take the medication as prescribed. Throw away the toothbrush after 24hours of antibiotic. -Eat things that are easy to swallow, like tea or soup, or popsicles to suck on. You might not feel like eating or drinking, but it's important that you get enough liquids. -Oral rinses such as: Salt water gargles and/or may use topical anesthetic (eg. Chloraseptic spray) or lozenges to relieve dryness or throat pain). -Take Tylenol and ibuprofen as needed for pain and fever as directed. -Frequent hand washing or hand roll edge stitcher hand is one of the best ways to prevent spread of infection. -Follow up with primary care provider in 2-3 days if condition is not improving or seek ER visit if you start breathing fast/has trouble breathing, is not drinking enough fluids, muffle voice, difficulty opening the mouth. Prescriptions: New clindamycin HCl 300 mg capsule 300 mg PO TID 10 Days Qty: 30 0RF No Action cholecalciferol (vitamin D3) 50 mcg (2,000 unit) capsule 50 mcg PO DAILY Patient Comments: 3000 daily fexofenadine [Nuzhat Hives] 180 mg tablet 180 mg PO DAILY Ubrelvy 100 mg tablet 100 mg PO ONCE PRN (Reason: migraine headache) Qty: 14 3RF Rx Instructions: as a single dose; may repeat once in >=2 hours after first dose if needed norethindrone (contraceptive) 0.35 mg tablet 0.35 mg PO DAILY Qty: 84 3RF methotrexate sodium 2.5 mg tablet 2.5 mg PO WEEKLY Rx Instructions: 8 tablets per week trazodone 50 mg tablet 25 mg PO QHS PRN (Reason: insomnia) Qty: 45 1RF methylprednisolone [Medrol (Lester)] 4 mg tablets,dose pack See Rx Instructions PO PER PKG DIR Qty: 21 0RF Rx Instructions: PO PER PKG DIR Enbrel 25 mg/0.5 mL solution 25 mg subcut WEEKLY Patient Comments: as per rheum folic acid 1 mg tablet See Rx Instructions .ROUTE .COMPLEX Qty: 90 0RF Dose Instruction: TAKE 1 TABLET BY MOUTH DAILY Rx Instructions: TAKE 2 TABLET BY MOUTH DAILY hydroxychloroquine 300 mg tablet 300 mg PO DAILY Qty: 60 0RF oxybutynin chloride 5 mg tablet extended release 24hr See Rx Instructions .ROUTE .COMPLEX Qty: 90 0RF Dose Instruction: TAKE 1 TABLET BY MOUTH DAILY Rx Instructions: TAKE 1 TABLET BY MOUTH DAILY Qulipta 60 mg tablet 60 mg PO DAILY Qty: 90 4RF dextroamphetamine-amphetamine [Adderall] 10 mg tablet 10 mg PO BID Qty: 60 0RF Hold Instructions: .Provider Order Rx Instructions: administer doses at least 4-6 hours apart dextroamphetamine-amphetamine [Adderall] 5 mg tablet 5 mg PO DAILY Qty: 30 0RF fluconazole 150 mg tablet 150 mg PO ONCE Qty: 1 0RF Follow-up/Referrals: Jovita Medrano MD [Primary Care Provider] - Time of Disposition: 15:54
[2024-09-02 15:24] LABS: EDSTREPNEGPOS1 Positive (Negative)
== END 2024-09-02 15:57 | disposition home or self-care (01) ==
PROVIDERS: Emergency Provider Nurse Practitioner Family; PCP Family Medicine
DX: J02.0 Streptococcal pharyngitis (principal); K21.00 Gastro-esophageal reflux disease with esophagitis, without bleeding; M35.1 Other overlap syndromes; M06.9 Rheumatoid arthritis, unspecified; M35.00 Sjogren syndrome, unspecified
CPT/HCPCS: 87880; 99213; G0463

== ENCOUNTER 2024-09-16 15:01 | Emergency (ER) | payer OTHER, SELFPAY ==
[2024-09-16 15:13] VITALS: BP 125/80; PULSE 72; RESP 18; TEMP 36.3; O2SAT 100
--- NOTE | 2024-09-16 15:28 | ED_ITS ---
HPI - URI/Sore Throat General Chief Complaint: Upper Respiratory Infection Stated Complaint: strep symptoms Source: patient Mode of arrival: ambulatory Limitations: no limitations History of Present Illness HPI Narrative: 33-year-old female presents to [facility] with complaints of 3 week history of sore throat and ?thick phlegm? for the past 3 weeks. Patient was evaluated here on September 02, given 10 day course of clindamycin. Patient reports that she follow back up with her primary care provider who then prescribed her mupirocin ointment to use nasally but patient has not started. Patient denies fever, body aches or chills. Patient has nausea, vomiting or diarrhea. Patient takes Nuzhat daily. MD elicited complaint: sore throat Onset (ago): week(s) (3) Able to tolerate fluids by mouth: Yes Exacerbating factors: swallowing Relieving factors: nothing Treatments prior to arrival: antibiotics Related Data Home Medications ?Medication ?Instructions ?Recorded ?Confirmed ?Last Taken ?Type cholecalciferol (vitamin D3) 50 50 mcg PO DAILY 04/15/23 09/15/24 Unknown History mcg (2,000 unit) capsule fexofenadine 180 mg tablet 180 mg PO DAILY 04/15/23 09/15/24 Unknown History (Nuzhat Hives) methotrexate sodium 2.5 mg tablet 2.5 mg PO WEEKLY 07/13/23 09/15/24 Unknown History etanercept 25 mg/0.5 mL 25 mg subcut WEEKLY 08/14/24 09/15/24 Unknown History subcutaneous solution (Enbrel) Allergies Allergy/AdvReac Type Severity Reaction Status Date / Time fluticasone (From Advair Allergy Severe Swelling Verified 09/16/24 15:20 Diskus) of Lip/Tongue/Throat salmeterol (From Advair Allergy Severe Swelling Verified 09/16/24 15:20 Diskus) of Lip/Tongue/Throat prednisone AdvReac Intermediate Dizziness Verified 09/16/24 15:20 Review of Systems Constitutional: Constitutional: Denies chills, Denies fatigue, Denies fever(s) and Denies weakness ENT: Denies dizziness, Denies epistaxis, Denies nasal congestion and Reports sore throat Respiratory: Respiratory: Denies cough, Denies dyspnea and Denies wheezing Gastrointestinal: Gastrointestinal: Denies diarrhea, Denies nausea and Denies vomiting Genitourinary: Genitourinary: Denies dysuria Integumentary/Breasts: Skin/Breast: Denies rash PMFSH Past Medical History Medical History Sjogren's disease Rheumatoid arthritis Ovarian cyst IBS (irritable bowel syndrome) Chronic headaches GERD with esophagitis Mixed connective tissue disease ADHD Surgical History Surgical History H/O laparoscopy lysis of adhesions H/O sinus surgery H/O colposcopy with cervical biopsy Family History Family History Father Brain cancer Alcohol abuse Heart disease Mother Alcohol abuse Hypertension Depression Asthma Sibling Asthma Depression Grandparent Alcohol abuse Asthma Diabetes mellitus Hypertension Depression Grandparent Alcohol abuse Social History Social History Social History: Smoking status: Never smoker Second hand tobacco smoke exposure: No Alcohol intake: never Substance use: never Substance use type: does not use Do You Feel Safe in your Home?: Yes Lack of Transportation: No Lack of Food: Never True Current Housing: I Have Housing Concerned About Future Housing: No Difficulty Paying Gas/Electric Bills: No Difficulty Paying for Meds: No Currently Unemployed: No Education: Master's Degree or Higher Difficulty w/ Childcare or Family Care: No Living arrangements: alone 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 There is no relevant family history pertinent to the presenting complaint. Exam Const: General: healthy appearing and no acute distress Nutritional Appearance: well nourished Orientation/consciousness: patient oriented x3 Limitations: no limitations HENMT: Head: normal to inspection Ears: external ears normal, TM's normal bilaterally and EAC's normal Face/Nose/Sinus: Normal external nose present Face and sinus: normal facial exam Mouth: Yes Normal oral and palatal mucosa present, Yes lip normal and Yes moist mucous membranes Throat: uvula midline Other: Mild erythema noted to oropharynx Eyes: Conjunctivae: conjunctivae normal Direct Ophthalmoscopy: no photophobia Neck: Neck: normal visual inspection Resp: Effort & Inspection: normal respiratory effort and not labored Auscultation: clear to auscultation bilaterally, no crackles, no rales, no rhonchi and no wheezes Cardio: Rate: regular rate Rhythm: regular rhythm Heart sounds: no murmurs Skin: General skin exam: normal color Rashes: no rashes Wounds: no wounds Neuro: General: patient oriented x3 Speech: normal speech Gait exam (Neuro): Normal gait present Psych: Affect: normal affect Attitude: cooperative Course Course Level of Care: Express Care Visit Vital Signs Vital signs: Vital Signs Temperature 36.3 C L 09/16/24 15:13 Pulse Rate 72 09/16/24 15:13 Respiratory Rate 18 09/16/24 15:13 Blood Pressure 125/80 09/16/24 15:13 Pulse Oximetry 100 09/16/24 15:13 Oxygen Delivery Room Air 09/16/24 15:13 Temperature 36.3 C L 09/16/24 15:13 Pulse Rate 72 09/16/24 15:13 Respiratory Rate 18 09/16/24 15:13 Blood Pressure 125/80 09/16/24 15:13 Pulse Oximetry 100 09/16/24 15:13 Oxygen Delivery Room Air 09/16/24 15:13 MDM - URI/Sore Throat MDM Narrative Medical decision making narrative: Discussed negative mono results with patient. Encouraged patient continue Nuzhat daily in morning and then consider Benadryl at night if needed. Patient reports that she has absent local ENT and encouraged patient follow-up with ENT concerning chronic sore throat. Educated patient complete warm saltwater gargles as needed alternate Motrin and Tylenol as needed Differential Diagnosis Differential diagnosis: Likely otitis media, sinusitis and viral infection Lab Data Labs: Negative rapid strep, negative mono Critical Care Time Critical Care Time Critical Care Time: No Discharge Plan Discharge Clinical Impression: Pharyngitis Qualifiers: Pharyngitis/tonsillitis etiology: unspecified etiology Qualified Code(s): J02.9 - Acute pharyngitis, unspecified Patient Disposition: Home, Self-Care Condition: Stable Instructions: Antibiotic Form, Pharyngitis (ED) Additional Instructions: Continue Nuzhat daily in morning Take Benadryl as needed at night Follow-up with ENT or primary care provider concerning chronic sore throat Proceed to the emergency room if symptoms worsen Patient Language: Mongolian Prescriptions: No Action cholecalciferol (vitamin D3) 50 mcg (2,000 unit) capsule 50 mcg PO DAILY Patient Comments: 3000 daily fexofenadine [Nuzhat Hives] 180 mg tablet 180 mg PO DAILY Ubrelvy 100 mg tablet 100 mg PO ONCE PRN (Reason: migraine headache) Qty: 14 3RF Rx Instructions: as a single dose; may repeat once in >=2 hours after first dose if needed norethindrone (contraceptive) 0.35 mg tablet 0.35 mg PO DAILY Qty: 84 3RF mupirocin 2 % ointment 1 applic topical BID Qty: 22 0RF methotrexate sodium 2.5 mg tablet 2.5 mg PO WEEKLY Rx Instructions: 8 tablets per week trazodone 50 mg tablet 25 mg PO QHS PRN (Reason: insomnia) Qty: 45 1RF Enbrel 25 mg/0.5 mL solution 25 mg subcut WEEKLY Patient Comments: as per rheum folic acid 1 mg tablet See Rx Instructions .ROUTE .COMPLEX Qty: 90 0RF Dose Instruction: TAKE 1 TABLET BY MOUTH DAILY Rx Instructions: TAKE 2 TABLET BY MOUTH DAILY hydroxychloroquine 300 mg tablet 300 mg PO DAILY Qty: 60 0RF oxybutynin chloride 5 mg tablet extended release 24hr See Rx Instructions .ROUTE .COMPLEX Qty: 90 0RF Dose Instruction: TAKE 1 TABLET BY MOUTH DAILY Rx Instructions: TAKE 1 TABLET BY MOUTH DAILY Qulipta 60 mg tablet 60 mg PO DAILY Qty: 90 4RF dextroamphetamine-amphetamine [Adderall] 10 mg tablet 10 mg PO BID Qty: 60 0RF Rx Instructions: administer doses at least 4-6 hours apart dextroamphetamine-amphetamine [Adderall] 5 mg tablet 5 mg PO DAILY Qty: 30 0RF Follow-up/Referrals: Jovita Medrano MD [Primary Care Provider] - Time of Disposition: 16:05
[2024-09-16 15:42] LABS: EDSTREPNEGPOS1 Negative (Negative)
[2024-09-16 16:03] LABS: EDMONONEGPOS Negative (Negative)
--- OUTSIDE RECORDS SUMMARY | 2024-09-23 22:49 | XMS_ITS | Encounter Summary ---
Author Organization [facility] Address [address] [place] [address]. [place] [address] [place] [address] Care Team Providers Care Contracts Intern Name Role Phone Jovita Medrano MD Primary Care Provider [phone] Encounter Details Date Type Department Care Team (Latest Contact Info) Description 01/24/2024 9:39 AM CDT - 01/24/2024 11:59 PM CDT Hospital Encounter [facility] [place] [address] Barbara Arreguin MD [facility], [address] [id number] Discharge Disposition: Home or Self Care (Routine Discharge) Social History Tobacco Use Types Packs/Day Years Used Date Smoking Tobacco: Never Passive Smoke Exposure: Never Smokeless Tobacco: Never Alcohol Use Standard Drinks/Week Comments Not Currently 0 (1 standard drink = 0.6 oz pur e alcohol) PHQ-2 Answer Date Recorded Patient Health Questionnaire-2 Score 0 06/21/2023 Comments Unknown Sex and Gender Information Value Date Recorded Sex Assigned at Not on file Legal Sex Female 2:40 PM CDT Gender Identity Not on file Sexual Orientation Lesbian 12/11/2022 9: 41 AM CDT documented as of this encounter Medications at Time of Discharge ALBUTEROL IN albuterol sulfate HFA 108 (90 Base) MCG/ACT inhaler INHALE 1 PUFF BY MOUTH EVERY 4 HOURS NEEDED FOR SHORTNESS OF BREATH OR WHEEZING 09/02/2022 amphetamine-dextroam phetamine (ADDERALL) 5 MG tablet TAKE 2 TABLETS BY MOUTH TWICE DAILY 4 TO 6 HOURS APART 05/15/2022 atogepant (QULIPTA) tablet Take 1 tablet (60 mg total) by mouth daily. fexofenadine-pseudoe phedrine ER (JUAN-D 12-HR) 60-120 MG 12 hr tablet Take 1 tablet by mouth 2 (two) times daily. PRN fluticasone propionate (FLONASE) 50 MCG/ACT nasal spray 2 sprays by Each Nostril route daily. SHAKE LIQUID 05/30/2022 folic acid (FOLVITE) 1 MG tablet Take 1 tablet (1 mg total) by mouth daily. 08/17/2022 hydroxychloroquine (PLAQUENIL) 200 MG tablet Take 1 tablet (200 mg total) by mouth daily. 08/17/2022 lisinopril (PRINIVIL) 2.5 MG tabletIndications:Pr oteinuria, unspecified type TAKE 1 TABLET(2.5 MG) BY MOUTH DAILY 90 tablet 3 12/16/2023 methotrexate (TREXALL) 2.5 MG tablet Take 1 tablet (2.5 mg total) by mouth once a week. Now 8 tabs per week 08/31/2022 NORETHINDRONE OR Take 0.35 mg by mouth continuous. NORTREL 1/35, 28, 1-35 MG-MCG tablet Take 1 tablet by mouth daily. 08/01/2022 NURTEC 75 MG disintegrating tablet 06/24/2022 oxybutynin XL (DITROPAN-XL) 5 MG 24 hr tablet Take 1 tablet (5 mg total) by mouth daily. 09/11/2022 traZODone (DESYREL) 50 MG tablet 09/04/2022 ubrogepant (UBRELVY) 100 MG tablet Take 1 tablet (100 mg total) by mouth as needed for Migraine. Max of 2 tablets (200 mg) in 24 hours vitamin D3 (CHOLECALCIFEROL) 25 mcg tablet Take 1 tablet (25 mcg total) by mouth daily. documented as of this encounter Plan of Treatment Not on file documented as of this encounter Procedures Procedure Name Priority Date/Time Associated Diagnosis Comments BASIC METABOLIC PANEL Routine 01/24/2024 9:46 AM CDT Proteinuria, unspecified type PROTEIN TOTAL URINE RANDOM Routine 01/24/2024 9:45 AM CDT Proteinuria, unspecified type ALBUMIN URINE RANDOM W/CREATININE Routine 01/24/2024 9:45 AM CDT Proteinuria, unspecified type documented in this encounter Results * (ABNORMAL) BASIC METABOLIC PANEL (01/24/2024 9:46 AM CDT) [facility] GLUCOSE 85 70 - 99 MG/DL 01/24/2024 11:22 AM CDT [facility] BUN 13 7 - 18 MG/DL 01/24/2024 11:22 AM CDT [facility] CREATININE S/P/B 0.81 0.55 - 1.02 MG/DL 01/24/2024 11:22 AM CDT [facility] SODIUM S/P/B 140 136 - 145 MMOL/L 01/24/2024 11:22 AM CDT [facility] POTASSIUM S/P/B 4.0 3.5 - 5.1 MMOL/L 01/24/2024 11:22 AM CDT [facility] CHLORIDE S/P/B 107 100 - 108 MMOL/L 01/24/2024 11:22 AM CDT [facility] CO2 29.1 21 - 32 MMOL/L 01/24/2024 11:22 AM CDT [facility] CALCIUM S/P/B 9.1 8.5 - 10.1 MG/DL 01/24/2024 11:22 AM CDT [facility] ANION GAP 3.9(L) 5 - 15 MMOL/L 01/24/2024 11:22 AM CDT [facility] BUN CREATININE RATIO 16.0 6 - 26 01/24/2024 11:22 AM CDT [facility] GFR ESTIMATE >90 >90 ML/MIN/1.7 3 M2 01/24/2024 11:22 AM CDT [facility] Comment: NOTE: eGFR is not calculated for patients <18 years of age. This is an estimated GFR calculation using the new CKD EPI creatinine equation without race and so does not require a correction factor for race. This estimated GFR should not be used for calculating drug doses. 01/24/2024 9:46 AM CDT Barbara Arreguin MD LABORATORY Final Result [facility] [address] [place] [id number], [place] [phone] * (ABNORMAL) PROTEIN TOTAL URINE RANDOM (01/24/2024 9:45 AM CDT) PROTEIN URINE TOTAL RANDOM 24.8(H) <10 MG/DL 01/24/2024 11:21 AM CDT [facility] URINE SPECIMEN / Unknown 01/24/2024 9:45 AM CDT Barbara Arreguin MD URINE ORDERABLES Final Result [facility] [address] [place] [address], [place] [phone] * (ABNORMAL) ALBUMIN URINE RANDOM (01/24/2024 9:45 AM CDT) CREATININE (U) 151.0 28 - 217 MG/DL 01/24/2024 11:21 AM CDT [facility] MICROALBUMIN (U) 4.3(H) <2.0 mg/dL 01/24/20 11:21 AM CDT [facility] ALBUMIN/CREAT RATIO 28.7 <30 MG/G 01/24/2024 11:21 AM CDT [facility] URINE SPECIMEN / Unknown 01/24/2024 9:45 AM CDT us Barbara Arreguin MD URINE ORDERABLES Final Result [facility] [address] [place] [address], documented in this encounter Visit Diagnoses Diagnosis Proteinuria, unspecified type documented in this encounter Additional Health Concerns Assessment Noted Time PHQ-9 Depression Total Score: 0 09/17/20 10:23 AM 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
--- OUTSIDE RECORDS SUMMARY | 2024-09-23 22:49 | XMS_ITS | Encounter Summary ---
Author Organization [facility] Address [address] [place] [address]. [place] [address] [place] [address] Care Team Providers Care Tipple Engineer Name Role Phone Jovita Medrano MD Primary Care Provider +1- [phone] Encounter Details Date Type Department Care Team (Latest Contact Info) Description 06/21/2023 9:45 AM CDT - 06/21/2023 11:59 PM CDT Hospital Encounter [facility] [place] [address] Barbara Arreguin MD 3 [facility], [address] [address] Discharge Disposition: Home or Self Care (Routine [...] DAILY 4 TO 6 HOURS APART 05/15/2022 fexofenadine-pseudoe phedrine ER (JUAN-D 12-HR) 60-120 MG [...] (200 mg total) by mouth daily. 08/17/2022 methotrexate (TREXALL) 2.5 MG tablet Take 1 tablet (2.5 mg total) by mouth once a week. Now 8 tabs per week 08/31/2022 NORTREL 1/35, 28, 1-35 MG-MCG tablet Take 1 tablet by mouth daily. 08/01/2022 NURTEC 75 MG disintegrating tablet 06/24/2022 oxybutynin XL (DITROPAN-XL) 5 MG 24 hr tablet Take 1 tablet (5 mg total) by mouth daily. 09/11/2022 traZODone (DESYREL) 50 MG tablet 09/04/2022 vitamin D3 (CHOLECALCIFEROL) 25 mcg tablet Take 1 tablet (25 mcg total) by mouth daily. lisinopril (PRINIVIL) 2.5 MG tabletIndications:Pr oteinuria, unspecified type Take 1 tablet (2.5 mg total) by mouth daily. 90 tablet 3 12/14/2022 4 documented as of this encounter Plan of Treatment Not on file documented as of this encounter Procedures Procedure Name Priority Date/Time Associated Diagnosis Comments PROTEIN TOTAL URINE RANDOM Routine 06/21/2023 9:52 AM CDT Proteinuria, unspecified type ALBUMIN URINE RANDOM W/CREATININE Routine 06/21/2023 9:52 AM CDT Proteinuria, unspecified type BASIC METABOLIC PANEL Routine 06/21/2023 9:50 AM CDT Proteinuria, unspecified type documented in this encounter Results * (ABNORMAL) PROTEIN TOTAL URINE RANDOM (06/21/2023 9:52 AM CDT) PROTEIN URINE TOTAL RANDOM 33.9(H) <10 MG/DL 06/21/2023 10:30 AM CDT [facility] URINE SPECIMEN / Unknown 06/21/2023 9:52 AM CDT Barbara Arreguin MD URINE ORDERABLES Final Result Performing Organization Address [facility] Co de Phone Number [facility] [address] [place] [address], [place] [phone] * (ABNORMAL) ALBUMIN URINE RANDOM (06/21/2023 9:52 AM CDT) CREATININE (U) 181.0 28 - 217 MG/DL 06/21/2023 10:30 AM CDT [facility] MICROALBUMIN (U) 6.6(H) <2.0 mg/dL 06/21/20 10:30 AM CDT [facility] ALBUMIN/CREAT RATIO 36.5(H) <30 MG/G 06/21/2023 10:30 AM CDT [facility] URINE SPECIMEN / Unknown 06/21/2023 9:52 AM CDT Barbara Arreguin MD URINE ORDERABLES Final Result Performing Organization Address City/[facility]/ZIP Co de Phone Number [facility] [address] [place] [address], [place] [phone] * (ABNORMAL) BASIC METABOLIC PANEL (06/21/2023 9:50 AM CDT) [facility] GLUCOSE 83 70 - 99 MG/DL 06/21/2023 10:31 AM T [facility] BUN 14 7 - 18 MG/DL 06/21/2023 10:31 AM [facility] CREATININE S/P/B 0.86 0.55 - 1.02 MG/DL 06/21/2023 10:31 AM T [facility] SODIUM S/P/B 141 136 - 145 MMOL/L 06/21/2023 10:31 AM [facility] POTASSIUM S/P/B 4.3 3.5 - 5.1 MMOL/L 06/21/2023 10:31 AM [facility] CHLORIDE S/P/B 108 100 - 108 MMOL/L 06/21/2023 10:31 AM [facility] CO2 28.9 21 - 32 MMOL/L 06/21/2023 10:31 AM [facility] CALCIUM S/P/B 8.8 8.5 - 10.1 MG/DL 06/21/2023 10:31 AM [facility] ANION GAP 4.1(L) 5 - 15 MMOL/L 06/21/2023 10:31 AM [facility] BUN CREATININE RATIO 16.3 6 - 26 06/21/2023 10:31 AM [facility] GFR ESTIMATE >90 >90 ML/MIN/1.7 3 M2 06/21/2023 10:31 AM [facility] Comment: NOTE: eGFR is not calculated for patients <18 years of age. This is an estimated GFR calculation using the new CKD EPI creatinine equation without race and so does not require a correction factor for race. This estimated GFR should not be used for calculating drug doses. 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
--- OUTSIDE RECORDS SUMMARY | 2024-09-23 22:49 | XMS_ITS | Encounter Summary ---
Author Organization [facility] Address [address] [place] [address]. [place] [address] [place] [address] Care Team Providers Care Freight Unloader Name Role Phone Jovita Medrano MD Primary Care Provider +1- [phone] Encounter Details Date Type Department Care Team (Latest Contact Info) Description 07/24/2024 1:53 PM CDT - 07/24/2024 11:59 PM CDT Hospital Encounter [facility] [place] [address] Barbara Arreguin MD 3 [facility], [address] [address] Discharge Disposition: Home or Self Care (Routine [...] Diagnosis Comments PROTEIN TOTAL URINE RANDOM Routine 07/24/2024 1:54 PM CDT Proteinuria, unspecified type URINALYSIS, AUTO, COMPLETE Routine 07/24/2024 1:54 PM CDT Proteinuria, unspecified type ALBUMIN URINE RANDOM W/CREATININE Routine 07/24/2024 1:54 PM CDT Proteinuria, unspecified type documented in this encounter Results * (ABNORMAL) URINALYSIS, AUTO, COMPLETE (07/24/2024 1:54 PM CDT) SPECIMEN TYPE URINE CLEAN CATCH 07/24/2024 1:55 PM CDT [facility] COLOR (U) LIGHT YELLOW 07/24/2024 3:05 PM CDT [facility] TRANSPARENCY CLEAR 07/24/2024 3:05 PM CDT [facility] SPECIFIC GRAVITY (U) 1.023 1.001 - 1.030 07/24/2024 3:05 PM CDT [facility] U PH 5.5 5.0 - 9.0 07/24/2024 3:05 PM CDT [facility] LEUKOCYTES (U) NEGATIVE NEGATIVE 07/24/2024 3:05 PM CDT [facility] NITRITES NEGATIVE NEGATIVE 07/24/2024 3:05 PM CDT [facility] PROTEIN RANDOM (U) 30(H) <30 MG/DL 07/24/2024 3:05 PM CDT [facility] GLUCOSE (U) NORMAL NORMAL MG/DL 07/24/2024 3:05 PM T [facility] KETONES MG/DL (U) NEGATIVE NEGATIVE MG/DL 07/24/2024 3:05 PM CDT [facility] UROBILINOGEN NORMAL NORMAL MG/DL 07/24/2024 3:05 PM T [facility] BILIRUBIN (U) NEGATIVE NEGATIVE MG/DL 07/24/2024 3:05 PM CDT [facility] BLOOD (U) NEGATIVE NEGATIVE 07/24/2024 3:05 PM CDT [facility] MUCUS RARE /LPF 07/24/2024 3:05 PM CDT [facility] WBC/HPF 1 <6 /HPF 07/24/2024 3:05 PM CDT [facility] RBC/HPF 1 <6 /HPF 07/24/2024 3:05 PM CDT [facility] SQUAMOUS EPITHELIALS RARE /HPF 07/24/2024 3:05 PM CDT [facility] URINE SPECIMEN OBTAINED BY CLEAN CATCH PROCEDURE / Unknown 07/24/2024 1:54 PM CDT Barbara Arreguin MD URINE ORDERABLES Final Result [facility] [address] [place] [address], [place] [phone] * (ABNORMAL) PROTEIN TOTAL URINE RANDOM (07/24/2024 1:54 PM CDT) PROTEIN URINE TOTAL RANDOM 33.1(H) <10 MG/DL 07/24/2024 3:12 PM CDT [facility] URINE SPECIMEN / Unknown 07/24/2024 1:54 PM CDT us Barbara Arreguin MD URINE ORDERABLES Final Result [facility] [address] [place] [address], [place] [phone] * (ABNORMAL) ALBUMIN URINE RANDOM W/CREATININE (07/24/2024 1:54 PM CDT) CREATININE (U) 189.0 28 - 217 MG/DL 07/24/2024 3:12 PM CDT [facility] MICROALBUMIN (U) 10.3(H) <2.0 mg/dL 07/24/20 3:12 PM CDT [facility] ALBUMIN/CREAT RATIO 54.5(H) <30 MG/G 07/24/2024 3:12 PM CDT [facility] URINE SPECIMEN / Unknown 07/24/2024 1:54 PM CDT us Barbara Arreguin MD URINE ORDERABLES Final Result [facility] [address] [place] [address], documented in this encounter Visit Diagnoses Diagnosis Proteinuria, unspecified type documented in this encounter Additional Health Concerns Assessment Noted Time PHQ-9 Depression Total Score: 0 09/17/20 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
--- OUTSIDE RECORDS SUMMARY | 2024-09-23 22:49 | XMS_ITS | Encounter Summary ---
Author Organization [facility] Address [address] [place] [address]. 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
--- OUTSIDE RECORDS SUMMARY | 2024-09-23 22:49 | XMS_ITS | Encounter Summary ---
Author Organization [facility] Address [address] [place] [address]. [place] [address] [place] [address] Care Team Providers Care Canteen Attendant Name Role Phone Jovita Medrano MD Primary Care Provider +1- [phone] Encounter Details Date Type Department Care Team (Late st Contact Info) Description 07/21/2024 Orders Only [facility] Multispecialty Care - [address], [address] [address] Barbara Arreguin MD [address] [place] [address], [address] [address] Social History Tobacco Use Types Packs/Day Years [...] on file documented as of this encounter Results * (ABNORMAL) URINALYSIS, AUTO, COMPLETE (07/24/2024 1:54 PM CDT) SPECIMEN TYPE URINE CLEAN CATCH 07/24/2024 1:55 PM CDT [facility] COLOR (U) LIGHT YELLOW 07/24/2024 3:05 PM CDT [facility] TRANSPARENCY CLEAR 07/24/2024 3:05 PM T [facility] SPECIFIC GRAVITY (U) 1.023 1.001 - 1.030 07/24/2024 3:05 PM CDT [facility] U PH 5.5 5.0 - 9.0 07/24/2024 3:05 PM T [facility] LEUKOCYTES (U) NEGATIVE NEGATIVE 07/24/2024 3:05 PM T [facility] NITRITES NEGATIVE NEGATIVE 07/24/2024 3:05 PM T [facility] PROTEIN RANDOM (U) 30(H) <30 MG/DL 07/24/2024 3:05 PM T [facility] GLUCOSE (U) NORMAL NORMAL MG/DL 07/24/2024 3:05 PM T [facility] KETONES MG/DL (U) NEGATIVE NEGATIVE MG/DL 07/24/2024 3:05 PM T [facility] UROBILINOGEN NORMAL NORMAL MG/DL 07/24/2024 3:05 PM T [facility] BILIRUBIN (U) NEGATIVE NEGATIVE MG/DL 07/24/2024 3:05 PM T [facility] BLOOD (U) NEGATIVE NEGATIVE 07/24/2024 3:05 PM T [facility] MUCUS RARE /LPF 07/24/2024 3:05 PM T [facility] WBC/HPF 1 <6 /HPF 07/24/2024 3:05 PM T [facility] RBC/HPF 1 <6 /HPF 07/24/2024 3:05 PM CDT [facility] SQUAMOUS EPITHELIALS RARE /HPF 07/24/2024 3:05 PM CDT [facility] URINE SPECIMEN OBTAINED BY CLEAN CATCH PROCEDURE / Unknown 07/24/2024 1:54 PM CDT Barbara Arreguin MD URINE ORDERABLES Final Result [facility] [address] [place] [address], [place] [phone] * (ABNORMAL) PROTEIN TOTAL URINE RANDOM (07/24/2024 1:54 PM CDT) PROTEIN URINE TOTAL RANDOM 33.1(H) <10 MG/DL 07/24/2024 3:12 PM CDT [facility] URINE SPECIMEN / Unknown 07/24/2024 1:54 PM CDT Barbara Arreguin MD URINE ORDERABLES Final Result Performing Organization Address City/[facility]/ZIP Co de Phone Number [facility] [address] [place] [address], [place] [phone] * (ABNORMAL) ALBUMIN URINE RANDOM W/CREATININE (07/24/2024 1:54 PM CDT) CREATININE (U) 189.0 28 - 217 MG/DL 07/24/2024 3:12 PM CDT [facility] MICROALBUMIN (U) 10.3(H) <2.0 mg/dL 07/24/20 3:12 PM CDT [facility] ALBUMIN/CREAT RATIO 54.5(H) <30 MG/G 07/24/2024 3:12 PM CDT [facility] URINE SPECIMEN / Unknown 07/24/2024 1:54 PM CDT us Barbara Arreguin MD URINE ORDERABLES Final Result [facility] [address] [place] [address], [place] [phone] documented in this encounter Visit Diagnoses Diagnosis Proteinuria, unspecified type- Primary documented in this encounter Additional Health Concerns Assessment Noted Time PHQ-9 Depression Total Score: 0 09/17/20 10:23 AM CORN GRINDER documented as of this encounter Care Teams Canteen Attendant Relationship Specialty Start Date End Date Jovita Medrano MD [address] [facility] [address] [place] [address] PCP - General FAMILY PRACTICE 07/01/22 documented as of this encounter
--- OUTSIDE RECORDS SUMMARY | 2024-09-23 22:49 | XMS_ITS | Encounter Summary ---
Author Organization [facility] Address [address] [place] [address]. [place] [address] [place] [address] Care Team Providers Care Clay House Worker Name Role Phone Jovita Medrano MD Primary Care Provider +1- [phone] Encounter Details Date Type Department Care Team (Latest Contact Info) Description 07/14/2024 MyCPotentialt Message Enc [facility] Multispecialty Care - [address], [address] [address] Barbara Arreguin MD [address] [place] [address], [address] [phone] Protein Issues Worsening Social History Tobacco Use Types Packs/Day Years [...] Time PHQ-9 Depression Total Score: 0 09/17/20 22 10:23 AM AIR TABLE OPERATOR documented as of this encounter Care Teams Clay House Worker Relationship Specialty Start Date End Date Jovita Medrano MD [address] [facility] [address] [facility] [address] [place] [address] PCP - General FAMILY PRACTICE 07/01/22 documented as of this encounter
--- OUTSIDE RECORDS SUMMARY | 2024-09-23 22:49 | XMS_ITS | Encounter Summary ---
Author Organization [facility] Address [address] [place] [address]. [place] [address] [place] [address] Care Team Providers Care Grocery Clerk Marking Name Role Phone Jovita Medrano MD Primary Care Provider +1- [phone] Reason for Visit * Reason Onset Date Comments Results 01/25/2024 Encounter Details Date Type Department Care Team (Late st Contact Info) Description 01/25/2024 Telephone [facility] Medical [facility] Multispecialty Care - [facility] [address] [facility], [facility] [address] [place] [address] Barbara Arreguin MD 3 [facility], [facility] [address] [place] [address] Results Social History Tobacco Use Types Packs/Day Years [...] AM CDT documented as of this encounter Progress Notes * Lucy Morris LPN - 01/25/2024 1:40 PM CDT Pt aware of results and that Dr Ewing has signed off on this pt--Pt vu documented in this encounter Plan of Treatment Not on file documented as of this encounter Visit Diagnoses Not on filedocumented in this encounter Additional Health Concerns Assessment Noted Time PHQ-9 Depression Total Score: 0 09/17/20 10:23 AM 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
--- OUTSIDE RECORDS SUMMARY | 2024-09-23 22:49 | XMS_ITS | Encounter Summary ---
Author Organization [facility] Address [address] [place] [address]. [place] [address] [place] [address] Care Team Providers Care Museum Educator Name Role Phone Jovita Medrano MD Primary Care Provider +1- [phone] Reason for Visit * Reason Onset Date Comments Results 07/20/2024 Encounter Details Date Type Department Care Team (Late st Contact Info) Description 07/20/2024 Telephone [facility] Medical Group Multispecialty Care - [facility] 3 [facility], [facility] [address] [place] [address] Barbara Arreguin MD 3 [facility], [facility] [address] [place] [address] Results Social History Tobacco Use Types Packs/Day [...] Noted Time PHQ-9 Depression Total Score: 0 12/22/20 22 10:23 AM VASCULAR SURGERY PHYSICIAN documented as of this encounter Care Teams Museum Educator Relationship Specialty Start Date End Date Jovita Medrano MD [address] [facility] [address] [place] [address] PCP - General FAMILY PRACTICE 07/01/22 documented as of this encounter
--- OUTSIDE RECORDS SUMMARY | 2024-09-23 22:49 | XMS_ITS | Clinical Summary ---
Author Organization [facility] Address [address] [place] [address]. [place] [address] [place] [address] Care Team Providers Care Pattern Attendant Name Role Phone Jovita Medrano MD Primary Care Provider +1- [phone] Allergies Active Allergy Reactions Criticality Noted Date Comments Fluticasone-Salmeterol Swelling 09/17/2022 Corticosteroids Other (see comment) High 12/27/2015 GLUCOCORTICOSTEROIDS : upset stomach - Converted from Centricity Fluticasone Swelling 09/17/2022 Medications albuterol sulfate HFA 108 (90 Base) MCG/ACT inhaler INHALE 1 PUFF BY MOUTH EVERY 4 HOURS NEEDED FOR SHORTNESS OF BREATH OR WHEEZING 2 Active fluticasone propionate (FLONASE) 50 MCG/ACT nasal spray 2 sprays by Each Nostril route daily. SHAKE LIQUID 2 Active folic acid (FOLVITE) 1 MG tablet Take 1 tablet (1 mg total) by mouth daily. 2 Active hydroxychloroquine (PLAQUENIL) 200 MG tablet Take 1 tablet (200 mg total) by mouth daily. 2 Active methotrexate (TREXALL) 2.5 MG tablet Take 1 tablet (2.5 mg total) by mouth once a week. Now 8 tabs per week 2 Active NORTREL 1/35, 28, 1-35 MG-MCG tablet Take 1 tablet by mouth daily. 2 Active oxybutynin XL (DITROPAN-XL) 5 MG 24 hr tablet Take 1 tablet (5 mg total) by mouth daily. 2 Active traZODone (DESYREL) 50 MG tablet 2 Active NURTEC 75 MG disintegrating tablet 2 Active amphetamine-dextro amphetamine (ADDERALL) 5 MG tablet TAKE 2 TABLETS BY MOUTH TWICE DAILY 4 TO 6 HOURS APART 2 Active vitamin D3 (CHOLECALCIFEROL) 25 mcg tablet Take 1 tablet (25 mcg total) by mouth daily. Active fexofenadine-pseud oephedrine ER (JUAN-D 12-HR) 60-120 MG 12 hr tablet Take 1 tablet by mouth 2 (two) times daily. PRN Active ALBUTEROL IN Active lisinopril (PRINIVIL) 2.5 MG tabletIndications: Proteinuria, unspecified type TAKE 1 TABLET(2.5 MG) BY MOUTH DAILY 90 tablet 3 4 Active atogepant (QULIPTA) tablet Take 1 tablet (60 mg total) by mouth daily. Active ubrogepant (UBRELVY) 100 MG tablet Take 1 tablet (100 mg total) by mouth as needed for Migraine. Max of 2 tablets (200 mg) in 24 hours Active NORETHINDRONE OR Take 0.35 mg by mouth continuous. Active Active Problems Problem Noted Date Diagnosed Date Proteinuria, unspecified type 09/17/2022 Rheumatoid arteritis ([facility]) 2 Sjogren's syndrome, with uns pecified organ involvement ([facility]) 09/17/2022 Encounters Date Type Department Care Team Description 08/01/2024 Telephone [facility] Medical [facility] [place] [address] [place] [address] Barbara Arreguin MD Results 07/24/2024 1:53 PM CDT - 07/24/2024 11:59 PM CDT Hospital Encounter [facility] [place] [address] Barbara Arreguin MD Discharge Disposition: Home or Self Care (Routine Discharge) 07/24/2024 Travel 07/21/2024 Orders Only [facility] Medical [facility] Multispecialty Care - [facility] [address] [facility] [address] [place] [phone] Barbara Arreguin MD 07/20/2024 [facility] [address] [facility] [address], [address] [place] [phone] Barbara Arreguin MD Results 07/14/2024 MyChart Message Enc [facility] [address] [facility] [address] [place] [phone] Barbara Arreguin MD Protein Issues Worsening from Last 3 Months Immunizations Name Administration Dates Next Due Td, Adsorbed, Preservative F ree, Adult Use, Lf Unspecified 09/27/2005 Tdap (Generic) 04/08/2017 Family History Medical History Relation Comments Alcohol Abuse Father Cancer Father Alcohol Abuse Mother Depression Mother Hypertension Mother Depression Sister Relation Status Comments Father Mother Sister Social History Tobacco Use Types Packs/Day Years Used Date Smoking Tobacco: Never Passive Smoke Exposure: Never Smokeless Tobacco: Never Tobacco Cessation:Counseling Given: No Alcohol Use Standard Drinks/Week Comments Not Currently 0 (1 standard drink = 0.6 oz pur e alcohol) PHQ-2 Answer Date Recorded Patient Health Questionnaire-2 Score 0 06/21/2023 Comments Unknown Sex and Gender Information Value Date Recorded Sex Assigned at Not on file Legal Sex Female 2:40 PM CDT Gender Identity Not on file Sexual Orientation Lesbian 12/11/2022 9: 41 AM CDT Last Filed Vital Signs Vital Sign Reading Time Taken Comments Blood Pressure 112/82 01/24/2024 10:32 AM CDT Pulse 85 01/24/2024 10:32 AM CDT Temperature 37.3 ??C (99.1 ??F) 01/24/2024 10:32 AM C DT Respiratory Rate - - Oxygen Saturation 100% 01/24/2024 10:32 AM CDT Inhaled Oxygen Concentration - - Weight 60.1 kg (132 lb 6.4 oz) 01/24/2024 10:32 AM CDT Height 165.1 cm (5' 5 ) 01/24/2024 10:32 AM CDT Body Mass Index 22.03 01/24/2024 10:32 AM CDT Plan of Treatment Health Maintenance Due Date Last Done Comments Cervical Cancer Screening Pa p Smear (Age 30 to 64) Every 3 Years 1989 Annual Physical 1992 Hepatitis C 2007 Hepatitis B Vaccines (1 of 3 - 19+ 3-dose series) 2008 Cervical Cancer Screening Pa p with HPV Testing (Age 30 to 64) Every 5 Years 2019 Cervical Cancer Screening wi th HPV 2019 COVID-19 Vaccine ( - 2023-2 5 season) 2024 Influenza Adult (#1) 2024 DTaP, Tdap and Td Vaccines ( 3 - Td or Tdap) 04/08/2027 04/08/2017, 09/27/2005 HPV Vaccines Aged Out No longer eligi ble based on patient's age to complete this topic Meningococcal Vaccine Aged Out No kalpana fang eligible based on patient's age to complete this topic Pneumococcal Vaccine: Pediatrics (0 to 5 Years) and At-Risk Patients (6 to 64 Years) Aged Out No longer eligible b ased on patient's age to complete this topic RSV Immunizations Under 20 Months Aged Out No longer eligible b ased on patient's age to complete this topic Procedures Procedure Name Priority Date/Time Associated Diagnosis Comments URINALYSIS, AUTO, COMPLETE Routine 07/24/2024 1:54 PM CDT Proteinuria, unspecified type PROTEIN TOTAL URINE RANDOM Routine 07/24/2024 1:54 PM CDT Proteinuria, unspecified type ALBUMIN URINE RANDOM W/CREATININE Routine 07/24/2024 1:54 PM CDT Proteinuria, unspecified type from Last 3 Months Results * (ABNORMAL) PROTEIN TOTAL URINE RANDOM (07/24/2024 1:54 PM CDT) PROTEIN URINE TOTAL RANDOM 33.1(H) <10 MG/DL 07/24/2024 3:12 PM CDT [facility] URINE SPECIMEN / Unknown 07/24/2024 1:54 PM CDT Barbara Arreguin MD URINE ORDERABLES Final Result [facility] [address] [place] [address], [place] [phone] * (ABNORMAL) URINALYSIS, AUTO, COMPLETE (07/24/2024 1:54 PM CDT) SPECIMEN TYPE URINE CLEAN CATCH 07/24/2024 1:55 PM CDT [facility] COLOR (U) LIGHT YELLOW 07/24/2024 3:05 PM CDT [facility] TRANSPARENCY CLEAR 07/24/2024 3:05 PM CDT [facility] SPECIFIC GRAVITY (U) 1.023 1.001 - 1.030 07/24/2024 3:05 PM CDT [facility] U PH 5.5 5.0 - 9.0 07/24/2024 3:05 PM CDT [facility] LEUKOCYTES (U) NEGATIVE NEGATIVE 07/24/2024 3:05 PM CDT [facility] NITRITES NEGATIVE NEGATIVE 07/24/2024 3:05 PM CDT [facility] PROTEIN RANDOM (U) 30(H) <30 MG/DL 07/24/2024 3:05 PM CDT [facility] GLUCOSE (U) NORMAL NORMAL MG/DL 07/24/2024 3:05 PM CDT [facility] KETONES MG/DL (U) NEGATIVE NEGATIVE MG/DL 07/24/2024 3:05 PM CDT [facility] UROBILINOGEN NORMAL NORMAL MG/DL 07/24/2024 3:05 PM CDT [facility] BILIRUBIN (U) NEGATIVE NEGATIVE MG/DL 07/24/2024 3:05 PM CDT [facility] BLOOD (U) NEGATIVE NEGATIVE 07/24/2024 3:05 PM CDT [facility] MUCUS RARE /LPF 07/24/2024 3:05 PM CDT [facility] WBC/HPF 1 <6 /HPF 07/24/2024 3:05 PM CDT [facility] RBC/HPF 1 <6 /HPF 07/24/2024 3:05 PM CDT [facility] SQUAMOUS EPITHELIALS RARE /HPF 07/24/2024 3:05 PM CDT [facility] URINE SPECIMEN OBTAINED BY CLEAN CATCH PROCEDURE / Unknown 07/24/2024 1:54 PM CDT Barbara Arreguin MD URINE ORDERABLES Final Result [facility] [address] [place] [address], [place] [phone] * (ABNORMAL) ALBUMIN URINE RANDOM W/CREATININE (07/24/2024 1:54 PM CDT) CREATININE (U) 189.0 28 - 217 MG/DL 07/24/2024 3:12 PM CDT [facility] MICROALBUMIN (U) 10.3(H) <2.0 mg/dL 07/24/20 3:12 PM CDT [facility] ALBUMIN/CREAT RATIO 54.5(H) <30 MG/G 07/24/2024 3:12 PM CDT [facility] URINE SPECIMEN / Unknown 07/24/2024 1:54 PM CDT Barbara Arreguin MD URINE ORDERABLES Final Result [facility] [address] [place] [address], from Last 3 Months Insurance [facility] Care Teams Pattern Attendant Relationship Specialty Start Date End Date Jovita Medrano MD [address] [place] [address] PCP - General FAMILY PRACTICE 07/01/22
--- OUTSIDE RECORDS SUMMARY | 2024-09-23 22:49 | XMS_ITS | Encounter Summary ---
Author Organization [facility] Address [address] [place] [address]. [place] [address] [place] [address] Care Team Providers Care Case Packer And Sealer Name Role Phone Jovita Medrano MD Primary Care Provider +1- [phone] Encounter Details Date Type Department Care Team (Latest Contact Info) Description 07/24/2024 Travel Social History Tobacco Use Types Packs/Day [...] Depression Total Score: 0 09/17/20 10:23 AM TRUCK HOPPER documented as of this encounter Care Teams Case Packer And Sealer Relationship Specialty Start Date End Date Jovita Medrano MD [address] [facility] [address] [place] [address] PCP - General FAMILY PRACTICE 07/01/22 documented as of this encounter
--- OUTSIDE RECORDS SUMMARY | 2024-09-23 22:49 | XMS_ITS | Encounter Summary ---
Author Organization [facility] Address [address] [place] [address]. [place] [address] [place] [address] Care Team Providers Care Vineyard Supervisor Name Role Phone Jovita Medrano MD Primary Care Provider +1- [phone] Reason for Visit * Reason Onset Date Comments Results 08/01/2024 Encounter Details Date Type Department Care Team ([facility] Contact Info) Description 08/01/2024 Telephone [facility] [address] [address] Barbara Arreguin MD [address] [place] [id number] Results Social History Tobacco Use Types Packs/Day [...] as of this encounter Progress Notes * Mary Floyd - 08/01/2024 11:12 AM CST Pt is calling to go over results. Please call pt to discuss. [phone] CTOR PRODUCT MANAGEMENT documented in this encounter Plan of Treatment Not on file documented as of this encounter Visit Diagnoses Not on filedocumented in this encounter Additional Health Concerns Assessment Noted Time PHQ-9 Depression Total Score: 0 09/17/20 10:23 AM DIRECTOR PRODUCT MANAGEMENT documented as of this encounter Care Teams Vineyard Supervisor Relationship Specialty Start Date End Date Jovita Medrano MD [address] [facility] [address] [facility] [address] [place] [id number] PCP - General FAMILY PRACTICE 07/01/22 documented as of this encounter
--- OUTSIDE RECORDS SUMMARY | 2024-09-23 22:49 | XMS_ITS | Encounter Summary ---
Author Organization [facility] Address [address] [place] [address]. [place] [address] [place] [address] Care Team Providers Care Operator Electronic Warfare Name Role Phone Bridger Lagos MD Primary Care Provider +1- [phone] Reason for Visit * Reason Comments Follow Up Encounter Details Date Type Department Care Team (Late st Contact Info) Description 01/24/2024 10:20 AM CDT Office Visit [facility] Multispecialty Care - [facility] [address] [facility], [address] [address] Saul Arreguin MD [address] [place] [address], [address] [address] Follow Up Social History Tobacco Use Types Packs/Day Years [...] AM CDT documented as of this encounter Last Filed Vital Signs Vital Sign Reading [...] Mass Index 22.03 01/24/2024 10:32 AM CDT documented in this encounter Progress Notes * Saul Arreguin MD - 01/24/2024 10:20 AM CDT Images from the original note were not included. Nephrology Office Note Jenna Cox is an 33-year-old female. Chief Complaint: Follow Up HPI: HPI Mrs. Cox a 33 y.o female with hx of GERD, IBS, mixed connective tissue disease (Rheumatoid arthritis and Sjogren disease), hx of asthma. -she moved to this area in 04/17 from [place]; she has a diagnosis of Rheumatoid arthritis and Sjogren disease. 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 -she is on meds for migraine headache and had change in OCP meds and her headache is batter. she has chronic occ dizziness. No more diarrhea or constipation. No fever, chills, chest pain, abdominal pain, nausea, vomiting, hematuria -chronic back / joints pain -no hx of kidney stones. -NSAIDs; hx of naproxen use; 2 pills a day for 2-3 years; off 2020 -volume; no edema Medical History: Past Medical History: Diagnosis Date ADHD Chronic headaches GERD (gastroesophageal reflux disease) IBS (irritable bowel syndrome) Mixed connective tissue disease ([facility]) Ovarian cyst Patient Active Problem List Diagnosis Proteinuria, unspecified type Rheumatoid arteritis ([facility]) Sjogren's syndrome, with unspecified organ involvement ([facility]) Allergies: Allergies Allergen Reactions Corticosteroids Other (see comment) GLUCOCORTICOSTEROIDS: upset stomach - Converted from [employer] Advair Diskus [Fluticasone-Salmeterol] Swelling Flonase [Fluticasone] Swelling Social History: Social History Tobacco Use Smoking status: Never Passive exposure: Never Smokeless tobacco: Never Substance Use Topics Alcohol use: Not Currently Surgical History: History reviewed. No pertinent surgical history. Family History: Family History Problem Relation Name Age of Onset Hypertension Mother Alcohol Abuse Mother Depression Mother Alcohol Abuse Father Cancer Father Depression Sister Current Medications: Current Outpatient Medications Medication Sig Dispense Refill ALBUTEROL IN albuterol sulfate HFA 108 (90 Base) MCG/ACT inhaler INHALE 1 PUFF BY MOUTH EVERY 4 HOURS NEEDED FOR SHORTNESS OF BREATH OR WHEEZING amphetamine-dextroamphetamine (ADDERALL) 5 MG tablet TAKE 2 TABLETS BY MOUTH TWICE DAILY 4 TO 6 HOURS APART atogepant (QULIPTA) tablet Take 1 tablet (60 mg total) by mouth daily. fexofenadine-pseudoephedrine ER (JUAN-D 12-HR) 60-120 MG 12 hr tablet Take 1 tablet by mouth 2 (two) times daily. PRN fluticasone propionate (FLONASE) 50 MCG/ACT nasal spray 2 sprays by Each Nostril route daily. SHAKELIQUID folic acid (FOLVITE) 1 MG tablet Take 1 tablet (1 mg total) by mouth daily. hydroxychloroquine (PLAQUENIL) 200 MG tablet Take 1 tablet (200 mg total) by mouth daily. lisinopril (PRINIVIL) 2.5 MG tablet TAKE 1 TABLET(2.5 MG) BY MOUTH DAILY 90 tablet 3 methotrexate (TREXALL) 2.5 MG tablet Take 1 tablet (2.5 mg total) by mouth once a week. Now 8 tabs per week NORETHINDRONE OR Take 0.35 mg by mouth continuous. oxybutynin XL (DITROPAN-XL) 5 MG 24 hr tablet Take 1 tablet (5 mg total) by mouth daily. traZODone (DESYREL) 50 MG tablet ubrogepant (UBRELVY) 100 MG tablet Take 1 tablet (100 mg total) by mouth as needed for Migraine. Max of 2 tablets (200 mg) in 24 hours vitamin D3 (CHOLECALCIFEROL) 25 mcg tablet Take 1 tablet (25 mcg total) by mouth daily. NORTREL 1/35, 28, 1-35 MG-MCG tablet Take 1 tablet by mouth daily. (Patient not taking: Reported on01/24/2024) NURTEC 75 MG disintegrating tablet No current facility-administered medications for this visit. Review of Systems: ROS -General: Negative for fever, chills, malaise, or fatigue. -Cardiovascular: Negative for chest pain, palpitation, lower Ext. edema or lightheadedness. -Respiratory: Negative for shortness of breath, wheezing, cough, or hemoptysis. -Gastrointestinal: Negative for abdominal pain, Nausea, vomiting, diarrhea, constipation, hematemesis, or hematochezia. -Genitourinary: Negative for dysuria, urgency, nocturia, polyuria, or hematuria. -Musculoskeletal: chronic joints pain. -Neurological: Negative for headache, confusion, dizziness, numbness, weakness, Vitals: Filed Vitals: 01/24/24 1032 BP: 112/82 Pulse: 85 Temp: 99.1 ??F (37.3 ??C) TempSrc: Temporal SpO2: 100% Weight: 60.1 kg (132 lb 6.4 oz) Height: 1.651 m (5' 5 ) Physical Exam: Physical Exam -GENERAL: No acute distress, breathing comfortably on room air. -LUNG: Clear to auscultation bilaterally, No wheezes, No crackles -CVS: Regular rate rhythm, S1 and S2 normal, No murmurs, -ABDOMEN: Soft, nondistended, Nontender -Musculoskeletal / EXT: no lower Ext edema. -NEURO: Alert, awake, oriented x3, No gross neuro deficit LABs SODIUM S/P/B Date Value Ref Range Status 06/21/2023 141 136 - 145 MMOL/L Final POTASSIUM S/P/B Date Value Ref Range Status 06/21/2023 4.3 3.5 - 5.1 MMOL/L Final CHLORIDE S/P/B Date Value Ref Range Status 06/21/2023 108 100 - 108 MMOL/L Final CO2 Date Value Ref Range Status 06/21/2023 28.9 21 - 32 MMOL/L Final ANION GAP Date Value Ref Range Status 06/21/2023 4.1 (L) 5 - 15 MMOL/L Final BUN Date Value Ref Range Status 06/21/2023 14 7 - 18 MG/DL Final CREATININE S/P/B Date Value Ref Range Status 06/21/2023 0.86 0.55 - 1.02 MG/DL Final BUN CREATININE RATIO Date Value Ref Range Status 06/21/2023 16.3 6 - 26 Final GLUCOSE Date Value Ref Range Status 06/21/2023 83 70 - 99 MG/DL Final CALCIUM S/P/B Date Value Ref Range Status 06/21/2023 8.8 8.5 - 10.1 MG/DL Final Assessment/Plan: No diagnosis found. 1)hx of proteinuria; she has hx of Rheumatoid arthritis and Sjogren disease. She is on methotrexateand Plaquenil; -labs done today 01/24/24 with Cr of 0.81 from 0.86-0.9 from 0.8 (06/18) K 4-4.3-4. Prior serum albumin 4.5. Hg 15.3 (06/18) . Updating patient of lab results. -urinalysis 12/17 from 06/18; protein 50 from +2, RBC 2 from 0-2 WBC 2 . -UA 05/19; protein negative, RBC 0-2, WBC 0-5 -UA 01/18; bland -urine albumin 4.4mg/dl (06/18) but no creatinine . -Microalbuminuria 29mg (01/18)-36mg (06/19)-126mg (12/17), UPC 0.16g (01/18)-0.2g (06/19)-0.31g (12/17) from 0.22g (08/17) -labs in 12/17; DENZEL and AntiDsDNA negative. Complement level were normal. -on small dose lisinopril. We discussed that ACEi can be teratogenic and should be taking if tryingto conceive or became . She knows and ok to continue it. We also discussed before that it would be fine if decided to stop ACEi if more hypotensive or dizzy since albuminuria what not that high and since no lupus per labs -records labs from 08/17; serum immunofixation; no monoclonal protein. ANCA negative DENZEL DNA negative. -Uric acid 4.1 (07/2021) -continuing following with engine specialist at [facility] -she used to be on NSAIDs which were stopped at this point Signing off. Please call or refer back if needed cc to PCP: Dr. Bridger Lagos Wind Turbine Mechanic at [facility] Thank you for allowing me to participate in the care of this patient. SAUL ARREGUIN MD 01/24/2024 PCP: BRIDGER LAGOS MD documented in this encounter Plan of Treatment Not on file documented as of this encounter Visit Diagnoses Diagnosis Proteinuria, unspecified type- Primary documented in this encounter Additional Health Concerns Assessment Noted Time PHQ-9 Depression Total Score: 0 09/17/20 10:23 AM ASSISTANT STORE MANAGER documented as of this encounter Care Teams Operator Electronic Warfare Relationship Specialty Start Date End Date Bridger Lagos MD [address] [facility] [address] [facility] [address] [place] [address] PCP - General FAMILY PRACTICE 07/01/22 documented as of this encounter
--- OUTSIDE RECORDS SUMMARY | 2024-09-23 22:49 | XMS_ITS | Encounter Summary ---
Author Organization [facility] Address [address] [place] [address]. [place] [address] [place] [address] Care Team Providers Care Log Getter Name Role Phone Jovita Medrano MD Primary Care Provider +1- [phone] Encounter Details Date Type Department Care Team (Latest Contact Info) Description 01/24/2024 Travel Social History Tobacco Use Types Packs/Day [...] Depression Total Score: 0 09/17/20 10:23 AM AIR CONTROL ELECTRONICS OPERATOR documented as of this encounter Care Teams Log Getter Relationship Specialty Start Date End Date Jovita Medrano MD [address] [facility] [address] [place] [address] PCP - General FAMILY PRACTICE 07/01/22 documented as of this encounter
--- OUTSIDE RECORDS SUMMARY | 2024-09-23 22:50 | XMS_ITS | Encounter Summary ---
Author Organization [facility] Address [address] [place] [address]. [place], [place] [phone] [place] [address] Care Team Providers Care Health Safety Specialist Name Role Phone Jovita Medrano MD Primary Care Provider +1- [phone] Reason for Visit * Reason Comments Lab (SCAN) Encounter Details Date Type Department Care Team (Latest Contact Info) Description 09/03/2021 Scan HEALTH INFO [facility] Scanned, Doc [facility] Lab (SCAN) Social History Tobacco Use Types Packs/Day Years Used Date Smoking Tobacco: Never Assessed PHQ-2 Answer Date Recorded Patient Health Questionnaire-2 Score 0 09/17/2022 Comments Unknown Sex and Gender Information Value Date Recorded Sex Assigned at Not on file Legal Sex Female 2:40 PM CDT Gender Identity Not on file Sexual Orientation Lesbian 12/11/2022 9: 41 AM CDT COVID-19 Exposure Response Date Recorded In the last 10 days, have yo u been in contact with someone who was confirmed or suspected to have Coronavirus/COVID-19? No / Unsure 09/17/2022 9:26 AM REINFORCING STEEL ERECTOR documented as of this encounter Plan of Treatment Not on file documented as of this encounter Procedures Procedure Name Priority Date/Time Associated Diagnosis Comments OUTSIDE LAB (SCAN ORDER) 09/03/2021 documented in this encounter Results * OUTSIDE LAB (SCAN) (09/03/2021) 09/03/2021 us Doc [facility] Scanned SCANNING Final Resu lt documented in this encounter Visit Diagnoses Not on filedocumented in this encounter Care Teams Health Safety Specialist Relationship Specialty Start Date End Date Jovita Medrano MD [address] [facility] [address] [facility] [address] [place] [id number] PCP - General FAMILY PRACTICE 07/01/22 documented as of this encounter
--- OUTSIDE RECORDS SUMMARY | 2024-09-23 22:50 | XMS_ITS | Encounter Summary ---
Author Organization [facility] Address [address] [place] [address]. [place] [address] [place] [address] Care Team Providers Care Benefits Consultant Name Role Phone Jovita Medrano MD Primary Care Provider +1- [phone] Encounter Details Date Type Department Care Team (Latest Contact Info) Description 12/10/2022 11:13 AM CDT - 12/10/2022 11:59 PM CDT Hospital Encounter [facility] [place] [address] Barbara Arreguin MD 3 [facility], [address] [address] Discharge Disposition: Home or Self Care (Routine Discharge) Social History Tobacco Use Types Packs/Day Years Used Date Smoking Tobacco: Never Passive Smoke Exposure: Never Smokeless Tobacco: Never PHQ-2 Answer Date Recorded Patient Health Questionnaire-2 [...] suspected to have Coronavirus/COVID-19? No / Unsure 12/10/2022 11:10 AM CDT documented as of this encounter Medications at Time of Discharge albuterol sulfate HFA 108 (90 Base) MCG/ACT [...] Procedure Name Priority Date/Time Associated Diagnosis Comments COMPLEMENT PROFILE I Routine 12/10/2022 11:31 AM CDT Proteinuria, unspecified type DENZEL IFA SCRN, [place] REFLEX TO TITER Routine 12/10/2022 11:31 AM CDT Proteinuria, unspecified type BASIC METABOLIC PANEL Routine 12/10/2022 11:31 AM CDT Proteinuria, unspecified type DNA ANTIBODY, JENA/DBL STRAN Routine 12/10/2022 11:31 AM CDT Proteinuria, unspecified type PROTEIN TOTAL URINE RANDOM Routine 12/10/2022 11:30 AM CDT Proteinuria, unspecified type URINALYSIS, AUTO, COMPLETE Routine 12/10/2022 11:30 AM CDT Proteinuria, unspecified type ALBUMIN URINE RANDOM W/CREATININE Routine 12/10/2022 11:30 AM CDT Proteinuria, unspecified type documented in this encounter Results * (ABNORMAL) COMPLEMENT PROFILE I (12/10/2022 11:31 AM CDT) C1 ESTERASE INHIBIT TOTAL 28 21 - 39 mg/dL 12/16/2022 2:16 PM CDT [employer] LY COMPLEMENT C3 127 83 - 193 mg/dL 12/16/2022 12:06 PM CDT [employer] LY COMPLEMENT C4 23 15 - 57 mg/dL 12/16/2022 12:06 PM CDT [employer] LY COMPLEMENT CH50 >60(H) 31 - 60 U/mL 12/16/2022 12:06 PM CDT [employer] Comment: Test Performed by [employer] [facility], [address] [place] [address] Jesse Brown M.D., Ph.D., Director of Laboratories , [facility] [id number] 12/10/2022 11:3 1 AM CDT us Barbara Arreguin MD LABORATORY Final Result [employer] , * DNA ANTIBODY, JENA/DBL STRAN (12/10/2022 11:31 AM CDT) DNA (DS) ANTIBODY <1 <=4 IU/mL 023 10:13 AM CDT [facility] Comment: ? Value ??Interpretation ? <or=4 IU/mL: Negative ? 5 - 9 IU/mL: Indeterminate ?>or=10 IU/mL: Positive Test Performed by [employer], [employer] [facility], [id number] [place] [address] Jesse Brown M.D., Ph.D., Director of Laboratories , [facility] [id number] 12/10/2022 11:3 1 AM CDT Barbara Arreguin MD LABORATORY Final Result [facility] [employer] [address] [place] [phone], * DENZEL IFA SCRN, [place] REFLEX TO TITER (12/10/2022 11:31 AM CDT) Pathologist [facility] DENZEL Negative Negative 12/15/2022 2:00 PM CDT [facility] ROSIE JENNINGS Comment: DENZEL IFA is a first line screen for detecting the presence of up to approximately 150 autoantibodies in various autoimmune diseases. A negative DENZEL IFA result suggests DENZEL-associated autoimmune disease is not present at this time, but is not definitive. If there is high clinical suspicion for Sjogren's Syndrome, testing for anti-SS-A/Ro antibody should be considered. Anti-Dotty-1 antibody should be considered for clinically suspected inflammatory myopathies. AC-0: Negative International Consensus on DENZEL Patterns https://doi.org/10.1515/ioqu-7190-4021 For additional information, please refer to http://education.[employer]Living/faq/AIT259 (This link is being provided for informational/ educational purposes only.) Test Performed by [employer], [employer] [facility], [address] [place], [place] Jesse Brown M.D., Ph.D., Director of Laboratories , [place] [id number] 12/10/2022 11:3 1 AM CDT Barbara Arreguin MD LABORATORY Final Result [facility] [address] [place], [place] , * (ABNORMAL) BASIC METABOLIC PANEL (12/10/2022 11:31 AM CDT) GLUCOSE 82 70 - 99 MG/DL 12/10/2022 12:[address] [facility] BUN 10 7 - 18 MG/DL 12/10/2022 12:[address] [facility] CREATININE S/P/B 0.88 0.55 - 1.02 MG/DL 12/10/2022 12:[address] [facility] SODIUM S/P/B 139 136 - 145 MMOL/L 12/10/2022 12:[address] [facility] POTASSIUM S/P/B 4.0 3.5 - 5.1 MMOL/L 12/10/2022 12:[address] [facility] CHLORIDE S/P/B 104 100 - 108 MMOL/L 12/10/2022 12:[address] [facility] CO2 26.9 21 - 32 MMOL/L 12/10/2022 12:[address] [facility] CALCIUM S/P/B 9.3 8.5 - 10.1 MG/DL 12/10/2022 12:[address] [facility] ANION GAP 8.1 5 - 15 MMOL/L 12/10/2022 12:[address] [facility] BUN CREATININE RATIO 11.3 6 - 26 12/10/2022 12:[address] [facility] GFR ESTIMATE 89(L) >90 ML/MIN/1.7 3 M2 12/10/2022 12:[address] [facility] Comment: NOTE: eGFR is not calculated for patients <18 years of age. This is an estimated GFR calculation using the new CKD EPI creatinine equation without race and so does not require a correction factor for race. This estimated GFR should not be used for calculating drug doses. 12/10/2022 11:3 1 AM CDT Barbara Arreguin MD LABORATORY Final Result [facility] [address] [place] [address], [place] [phone] * (ABNORMAL) PROTEIN TOTAL URINE RANDOM (12/10/2022 11:30 AM CDT) PROTEIN URINE TOTAL RANDOM 56.9(H) <10 MG/DL 12/10/2022 12:[address] [facility] URINE SPECIMEN / Unknown 12/10/2022 11:30 AM CDT Barbara Arreguin MD URINE ORDERABLES Final Result [facility] [address] [place] [address], [place] [phone] * (ABNORMAL) ALBUMIN URINE RANDOM (12/10/2022 11:30 AM CDT) CREATININE (U) 181.0 28 - 217 MG/DL 12/10/2022 12:[address] [facility] MICROALBUMIN (U) 22.8(H) <2.0 mg/dL 12/10/2022 12:[address] [facility] ALBUMIN/CREAT RATIO 126.0(H) <30 MG/G 12/10/2022 12:[address] [facility] URINE SPECIMEN / Unknown 12/10/2022 11:30 AM CDT us Barbara Arreguin MD URINE ORDERABLES Final Result [facility] [address] [place] [address], [place] [phone] * (ABNORMAL) URINALYSIS, AUTO, COMPLETE (12/10/2022 11:30 AM CDT) SPECIMEN TYPE URINE CLEAN CATCH 12/10/2022 11:[address] [facility] COLOR (U) YELLOW 12/10/2022 12:[address] [facility] TRANSPARENCY CLEAR 12/10/2022 12:[address] [facility] SPECIFIC GRAVITY (U) 1.018 1.001 - 1.030 12/10/2022 12:[address] [facility] U PH 6.0 5.0 - 9.0 12/10/2022 12:[address] [facility] LEUKOCYTES (U) NEGATIVE NEGATIVE 12/10/2022 12:[address] [facility] NITRITES NEGATIVE NEGATIVE 12/10/2022 12:[address] [facility] PROTEIN (U) 50(H) <30 MG/DL 12/10/2022 12:[address] [facility] URINE GLUCOSE NORMAL NORMAL MG/DL 12/10/2022 12:[address] [facility] KETONES MG/DL (U) NEGATIVE NEGATIVE MG/DL 12/10/2022 12:[address] [facility] UROBILINOGEN NORMAL NORMAL MG/DL 12/10/2022 12:[address] [facility] BILIRUBIN (U) NEGATIVE NEGATIVE MG/DL 12/10/2022 12:[address] [facility] BLOOD (U) NEGATIVE NEGATIVE 12/10/2022 12:[address] [facility] MUCUS FEW /LPF 12/10/2022 12:[address] [facility] WBC/HPF 2 <6 /HPF 12/10/2022 12:[address] [facility] RBC/HPF 2 <6 /HPF 12/10/2022 12:[address] [facility] BACTERIA (U) RARE(A) NONE /HPF 12/10/2022 12:[address] [facility] SQUAMOUS EPITHELIALS RARE /HPF 12/10/2022 12:[address] [facility] URINE SPECIMEN OBTAINED BY CLEAN CATCH PROCEDURE / Unknown 12/10/2022 11:30 AM CDT us Barbara Arreguin MD URINE ORDERABLES Final Result 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
--- OUTSIDE RECORDS SUMMARY | 2024-09-23 22:50 | XMS_ITS | Encounter Summary ---
Author Organization [facility] Address [address] [place] [address]. 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
--- OUTSIDE RECORDS SUMMARY | 2024-09-23 22:50 | XMS_ITS | Encounter Summary ---
Author Organization [facility] Address [address] [place] [address]. [place] [address] [place] [address] Care Team Providers Care Medical Secretary Receptionist Name Role Phone Jovita Medrano MD Primary Care Provider +1- [phone] Reason for Visit * Reason Onset Date Comments Lab Order 12/08/2022 Encounter Details Date Type Department Care Team (Late st Contact Info) Description 12/08/2022 Telephone [facility] Medical [facility] [address] [phone] Barbara Arreguin MD [address] [place] [address] Lab Order Social History Tobacco Use Types Packs/Day Years [...] Progress Notes * Lucy Morris LPN - 12/09/2022 10:03 AM CDT Call x1 lft msg that she can do the labs at [facility] and she would not need the orders they would be in the system already * Chemo R Harmeet - 12/08/2022 9:21 AM CDT Pt is calling to see where she should get her labs done pls call pt [phone]. 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
--- OUTSIDE RECORDS SUMMARY | 2024-09-23 22:50 | XMS_ITS | Encounter Summary ---
Author Organization [facility] Address [address] [place] [address]. [place] [address] [place] [address] Care Team Providers Care Drainage Engineer Name Role Phone Jovita Medrano MD Primary Care Provider +1- [phone] Reason for Visit * Reason Onset Date Comments Record Request 09/17/2022 Encounter Details Date Type Department Care Team (Late st Contact Info) Description 09/17/2022 Telephone [facility] Medical [facility] [address] [phone] Barbara Arreguin MD [address] [place] [address], [address] [address] Record Request Social History Tobacco Use Types Packs/Day Years [...] Coronavirus/COVID-19? No / Unsure 09/17/2022 9:26 AM RESIDENT CARE SUPERVISOR documented as of this encounter Progress Notes * Halima Noel LPN - 09/22/2022 8:21 AM CST Req records at this time. DENT CARE SUPERVISOR * Halima Noel LPN - 09/18/2022 11:02 AM CST Office not open at this time. Will try again on wednesday DENT CARE SUPERVISOR * Halima Noel LPN - 09/18/2022 7:37 AM CST Pt saw Dr Alexandra Grant and HETAL Tamez with [place] at [facility]. [phone] DENT CARE SUPERVISOR * Halima Noel LPN - 09/17/2022 2:39 PM CST Waiting to hear from pt as to who she saw in [place] for rheum DENT CARE SUPERVISOR * Halima Noel LPN - 09/17/2022 2:38 PM CST ----- Message from Barbara Arreguin MD sent at 09/17/2022 2:18 PM RESIDENT CARE SUPERVISOR ----- Can you please request records of baseline urine testing from her karate instructor in [place] thx DENT CARE SUPERVISOR documented in this encounter Plan of Treatment Not on file documented as of this encounter Visit Diagnoses Not on filedocumented in this encounter Additional Health Concerns Assessment Noted Time PHQ-9 Depression Total Score: 0 09/17/20 10:23 AM RESIDENT CARE SUPERVISOR documented as of this encounter Care Teams Drainage Engineer Relationship Specialty Start Date End Date Jovita Medrano MD [address] [facility] [address] [facility] 120 [place] [address] PCP - General FAMILY PRACTICE 07/01/22 documented as of this encounter
--- OUTSIDE RECORDS SUMMARY | 2024-09-23 22:50 | XMS_ITS | Encounter Summary ---
Author Organization [facility] Address [address] [place] [address]. [place] [address] [place] [address] Care Team Providers Care Paving Foreman Name Role Phone Jovita Medrano MD Primary Care Provider +1- [phone] Encounter Details Date Type Department Care Team (Latest Contact Info) Description 12/10/2022 Travel Social History Tobacco Use Types Packs/Day [...] Depression Total Score: 0 09/17/20 10:23 AM ELECTRICAL LINEMAN documented as of this encounter Care Teams Paving Foreman Relationship Specialty Start Date End Date Jovita Medrano MD [address] [facility] [address] [place] [address] [place] [address] PCP - General FAMILY PRACTICE 07/01/22 documented as of this encounter
--- OUTSIDE RECORDS SUMMARY | 2024-09-23 22:50 | XMS_ITS | Encounter Summary ---
Author Organization [facility] Address [address] [place] [address]. [place], [place] [address] [place] [address] Care Team Providers Care Outdoor Education Teacher Name Role Phone Jovita Medrano MD Primary Care Provider +1- [phone] Reason for Visit * Reason Comments Lab (SCAN) Encounter Details Date Type Department Care Team (Latest Contact Info) Description 11/28/2020 Scan HEALTH INFO [facility] Scanned, Doc Med [...] Coronavirus/COVID-19? No / Unsure 09/17/2022 9:26 AM CALL TAKER documented as of this encounter Plan of Treatment Not on file documented as of this encounter Procedures Procedure Name Priority Date/Time Associated Diagnosis Comments OUTSIDE LAB (SCAN ORDER) 11/28/2020 documented in this encounter Results * OUTSIDE LAB (SCAN) (11/28/2020) 11/28/2020 us [facility] Scanned SCANNING Final Resu lt documented in this encounter Visit Diagnoses Not on filedocumented in this encounter Care Teams Outdoor Education Teacher Relationship Specialty Start Date End Date Jovita Medrano MD [address] [facility] [address] [facility] 120 [place] [id number] PCP - General FAMILY PRACTICE 07/01/22 documented as of this encounter
--- OUTSIDE RECORDS SUMMARY | 2024-09-23 22:50 | XMS_ITS | Encounter Summary ---
Author Organization [facility] Address [address] [place] [address]. [place] [address] [place] [address] Care Team Providers Care Master Automotive Technician Name Role Phone Bridger Lagos MD Primary Care Provider +1- [phone] Reason for Visit * Reason Comments Follow Up Chronic Kidney Disease proteinuria * Consultation/Treatment (Routine) - Closed Specialty Diagnoses / Procedures Referred By Contac t Referred To Contact NEPHROLOGY Diagnoses Proteinuria, unspecified Bridger Lagos MD [address] [facility] [address] [place] [address] Phone: tel: fax: Saul Arreguin MD [address] [place] [address], [address] [address] Phone: tel: fax: Referral ID Status Reason Start Date Expiration Date Visits Re quested Visits Authorized [id number] Closed 07/01/2022 08/01/2023 100 100 Encounter Details Date Type Department Care Team (Latest Contact Info) Description 06/21/2023 10:40 AM CDT Office Visit [facility] Multispecialty Care - [facility] 3 [facility], [facility] [address] [place] [address] Saul Arreguin MD 3 [facility], [facility] [address] [place] [address] Follow Up; Chronic Kidney Disease (proteinuria) Social History Tobacco Use Types Packs/Day Years [...] Sign Reading Time Taken Comments Blood Pressure 95/70 06/21/2023 10:33 AM CDT Pulse 79 06/21/2023 10:33 AM CDT Temperature 37 ??C (98.6 ??F) 06/21/2023 10:33 AM CDT Respiratory Rate - - Oxygen Saturation 100% 06/21/2023 10:33 AM CDT Inhaled Oxygen Concentration - - Weight 59.4 kg (131 lb) 06/21/2023 10:33 AM CDT Height 165.1 cm (5' 5 ) 06/21/2023 10:33 AM CDT Body Mass Index 21.8 06/21/2023 10:33 AM CDT documented in this encounter Progress Notes * Saul Arreguin MD - 06/21/2023 10:40 AM CDT Images from the original note were not included. Nephrology Office Note Jenna Cox is an 32-year-old female. Chief Complaint: Follow Up and Chronic Kidney Disease (proteinuria) HPI: HPI Mrs. Cox a 32 y.o female with hx of GERD, IBS, mixed connective tissue disease (Rheumatoid arthritis and Sjogren disease), hx of asthma -12/17: adding small dose lisinopril -she moved to this area in 04/17 from [place]; she has a diagnosis of Rheumatoid arthritis and Sjogren disease. She used to follow up with a pneumatic tube fitter in [place] and now transitioned to [facility] -she was told that she had proteinuria and occ microscopic hematuria for which was seen by urologist before and was told that her scan was fine; she was told that the bladder was not emptying correctly due to spams for which she took oxybutynin -she has chronic headache / dizziness and on/ off diarrhea / constipation. She had EGD and colonoscopy that only showed signs of GERD. -no cough, fever, CP, SOB, nausea, vomiting, diarrhea, dizziness, hematuria -chronic back / joints pain -no hx of kidney stones. -NSAIDs; hx of naproxen use; 2 pills a day for 2-3 years; off 2020 -volume; no edema Medical History: Past Medical History: Diagnosis Date ADHD Chronic headaches GERD (gastroesophageal reflux disease) IBS (irritable bowel syndrome) Mixed connective tissue disease (HHS/HCC) ([facility]) Ovarian cyst Patient Active Problem List Diagnosis Proteinuria, unspecified type Rheumatoid arteritis ([facility]/HCC) ([facility]) Sjogren's syndrome, with unspecified organ involvement ([facility]) ([facility]) Allergies: Allergies Allergen Reactions Advair Diskus [Fluticasone-Salmeterol] Swelling Flonase [Fluticasone] Swelling [...] TWICE DAILY 4 TO 6 HOURS APART fexofenadine-pseudoephedrine ER (JUAN-D 12-HR) 60-120 MG 12 [...] mouth daily. lisinopril (PRINIVIL) 2.5 MG tablet Take 1 tablet (2.5 mg total) by mouth daily. 90 tablet 3 methotrexate (TREXALL) 2.5 MG tablet Take 1 tablet (2.5 mg total) by mouth once a week. Now 8 tabs per week NORTREL 1/35, 28, 1-35 MG-MCG tablet Take 1 tablet by mouth daily. NURTEC 75 MG disintegrating tablet oxybutynin XL (DITROPAN-XL) 5 MG 24 hr tablet Take 1 tablet (5 mg total) by mouth daily. vitamin D3 (CHOLECALCIFEROL) 25 mcg tablet Take 1 tablet (25 mcg total) by mouth daily. traZODone (DESYREL) 50 MG tablet TAKE 1 TABLET BY MOUTH EVERY DAY AT BEDTIME NEEDED FOR INSOMNIA(Patient not taking: Reported on 06/21/2023) No current facility-administered medications for this visit. Review of Systems: ROS -General: Negative for fever, chills, malaise, or fatigue. -Eyes: Negative for eye pain, eye redness, eye discharge or itchiness. -Cardiovascular: Negative for chest pain, palpitation, lower Ext. edema or lightheadedness. -Respiratory: Negative for shortness of breath, wheezing, cough, or hemoptysis. -Gastrointestinal: oc diarrhea / constipation. Negative for abdominal pain, bloating, Nausea, vomiting, hematemesis, or hematochezia. -Genitourinary: Negative for dysuria, frequency, urgency, nocturia, polyuria, or hematuria. -Musculoskeletal: chronic back and joints pain. -Neurological: occ headache, dizziness. Negative for confusion, numbness, weakness -Hematologic: Negative for jaundice, easy bleeding Vitals: Filed Vitals: 06/21/23 1033 BP: 95/70 Pulse: 79 Temp: 98.6 ??F (37 ??C) SpO2: 100% Weight: 59.4 kg (131 lb) Height: 5' 5 (1.651 m) Physical Exam: Physical Exam -GENERAL: No acute distress, breathing comfortably on room air. -EYES: Extraocular movements intact -LUNG: Clear to auscultation bilaterally, No wheezes, No crackles -CVS: Regular rate rhythm, S1 and S2 normal -ABDOMEN: Soft, nondistended, Nontender -Musculoskeletal / EXT: [...] 06/21/2023 8.8 8.5 - 10.1 MG/DL Final Invalid input(s): MG No results for input(s): WBC, RBC, HGB, HCT, MCV, MCH, MCHC, PLT, RDW, PERNEU, PERLYM in the last 168 hours. Assessment/Plan: 1. Proteinuria, unspecified type BASIC METABOLIC PANEL ALBUMIN URINE RANDOM PROTEIN TOTAL URINE RANDOM 2. Sjogren's syndrome, with unspecified organ involvement ([facility]) ([facility]) 1)hx of proteinuria; she has hx of Rheumatoid arthritis and Sjogren disease. She is on methotrexateand Plaquenil; -labs 06/19 with Cr of 0.86-0.9 from 0.8 (06/18) K 4.3-4. Prior serum albumin 4.5. Hg 15.3 (06/18) -urinalysis 12/17 from 06/18; protein 50 from +2, RBC 2 from 0-2 WBC 2 . urine albumin 4.4mg/dl (06/18) but no creatinine . Microalbuminuria 36mg (06/19)-126mg (12/17), UPC 0.2g (06/19)-0.31g (12/17) from 0.22g (08/17) -labs in 12/17; DENZEL and AntiDsDNA negative. Complement level were normal. -on small dose lisinopril. We discussed that ACEi can be teratogenic and should be taking if tryingto conceive or became . She knows and ok to continue it. We also discussed that it would befine if decided to stop ACEi if more hypotensive or dizzy since albuminuria what not that high and since no lupus per labs -records labs from 08/17; serum immunofixation; no monoclonal protein. ANCA negative DENZEL DNA negative. -Uric acid 4.1 (07/2021) -continuing following with pneumatic tube fitter at [facility] -she used to be on NSAIDs which were stopped at this point F/U in 7-8 months. Labs for next visit cc to PCP: Dr. Bridger Lagos Clay Preparation Supervisor at [facility] Thank you for allowing me to participate in the care of this patient. SAUL ARREGUIN MD 06/21/2023 PCP: BRIDGER LAGOS MD documented in this encounter Plan of Treatment Not on file documented as of this encounter Results * (ABNORMAL) BASIC METABOLIC PANEL (01/24/2024 9:46 AM CDT) [facility] Signature GLUCOSE 85 70 - 99 MG/DL 01/24/2024 11:22 AM CDT [facility] BUN 13 7 - 18 MG/DL 01/24/2024 11:22 AM CDT [facility] CREATININE S/P/B 0.81 0.55 - 1.02 MG/DL 01/24/2024 11:22 AM CDT [facility] SODIUM S/P/B 140 136 - 145 MMOL/L 01/24/2024 11:22 AM CDT [facility] POTASSIUM S/P/B 4.0 3.5 - 5.1 MMOL/L 01/24/2024 11:22 AM CDT [facility] CHLORIDE S/P/B 107 100 - 108 MMOL/L 01/24/2024 11:22 AM CDT [facility] CO2 29.1 21 - 32 MMOL/L 01/24/2024 11:22 AM CDT [facility] CALCIUM S/P/B 9.1 8.5 - 10.1 MG/DL 01/24/2024 11:22 AM CDT [facility] ANION GAP 3.9(L) 5 - 15 MMOL/L 01/24/2024 11:22 AM CDT [facility] BUN CREATININE RATIO 16.0 6 - 26 01/24/2024 11:22 AM CDT [facility] GFR ESTIMATE >90 >90 ML/MIN/1.7 3 M2 01/24/2024 11:22 AM CDT [facility] Comment: NOTE: eGFR is not calculated for patients <18 years of age. This is an estimated GFR calculation using the new CKD EPI creatinine equation without race and so does not require a correction factor for race. This estimated GFR should not be used for calculating drug doses. 01/24/2024 9:46 AM CDT us Saul Arreguin MD LABORATORY Final Result [facility] [address] [place] [address], [place] [phone] * (ABNORMAL) PROTEIN TOTAL URINE RANDOM (01/24/2024 9:45 AM CDT) PROTEIN URINE TOTAL RANDOM 24.8(H) <10 MG/DL 01/24/2024 11:21 AM CDT [facility] URINE SPECIMEN / Unknown 01/24/2024 9:45 AM CDT us Saul Arreguin MD URINE ORDERABLES Final Result [facility] [address] [place] [address], [place] [phone] * (ABNORMAL) ALBUMIN URINE RANDOM (01/24/2024 9:45 AM CDT) CREATININE (U) 151.0 28 - 217 MG/DL 01/24/2024 11:21 AM CDT [facility] MICROALBUMIN (U) 4.3(H) <2.0 mg/dL 01/24/20 11:21 AM CDT [facility] ALBUMIN/CREAT RATIO 28.7 <30 MG/G 01/24/2024 11:21 AM CDT [facility] URINE SPECIMEN / Unknown 01/24/2024 9:45 AM CDT Saul Arreguin MD URINE ORDERABLES Final Result Performing Organization Address City/[facility] Co de Phone Number [facility] [address] [place] [address], [place] [phone] documented in this encounter Visit Diagnoses Diagnosis Proteinuria, unspecified type- Primary Sjogren's syndrome, with unspecified organ involvement ([facility]) documented in this encounter Additional Health Concerns Assessment Noted Time PHQ-9 Depression Total Score: 0 09/17/20 10:23 AM BRICK MASON documented as of this encounter Care Teams Master Automotive Technician Relationship Specialty Start Date End Date Bridger Lagos MD [address] [facility] [address] [place] [address] PCP - General FAMILY PRACTICE 07/01/22 documented as of this encounter
--- OUTSIDE RECORDS SUMMARY | 2024-09-23 22:50 | XMS_ITS | Continuity of Care Document ---
Author Organization [facility] Address [address] [place] [address] Phone Care Team Providers Care Order Runner Name Role Phone Federico WINTERS, Arun Unavailable Unavailable Allergies, Adverse Reactions, Alerts Substance Reaction Status Criticality SALMETEROL XINAFOATE Active No Info rmation FLUTICASONE PROPIONATE Active No In formation Medications Medication Instructions Dosage Effective Dates (start - stop) Status Comments fluconazole 150 mg tablet take 1 tablet by oral route once 150 MG - Active Cyclafem 1/35 (28) 1 mg-35 mcg tablet take 1 tablet by oral route for 21 consecutive days, followed by 7 days off - Active omeprazole 20 mg capsule,delayed release take 1 capsule by oral route every day before a meal 20 MG - Active Plaquenil 200 mg tablet take 1 tablet by oral route 2 times every day 200 MG - Active naproxen 500 mg tablet take 1 tablet by oral route 2 times every day with food 500 MG - Active Procedures Procedure Date Offic/outpt E&m Estab Low-mod 0 Urin Pg Test Visual Color Comp 20 Offic/outpt E&m Estab Mod-hi 20 Echo Transvaginal Offic/outpt E&m Estab Mod-hi 2 20 Echo Transvaginal Thyroid Stim Hormone Thyroxine; Free Venipuncture Prolactin Preven E&m Estab Pt; 18-39 Yr 9 Offic/outpt E&m Estab Low-mod 9 Colposcopy; W/bx-cerv &/or End 18 Preven E&m Estab Pt; 18-39 Yr 8 Offic/outpt E&m Estab Mod-hi 2 18 Offic/outpt E&m Estab Mod-hi 4 18 Echo Transvaginal General Health Panel Thyroxine; Free Venipuncture Vitamin D 25 Hydroxy Includes Fraction(s ) If Performed Offic/outpt E&m New Mod Sever 7 Echo Transvaginal Advance Directives Directive Yes / No Effective Date File Name No Information Encounters Encounter Description Practice Location Reason(s) For Visit Diagnoses Date Provider Providers Copied on Encounter [facility], [address], [place], [place], [id number] , [place] tel: [phone] [facility] No Information 1 Federico Dias. [facility], [id number], [place]. tel:[phone] Offic[facility]outpt [facility] [address], [place], [place], [id number] , [place] tel: [phone] [facility] Low grade squamous intraepithelial lesion on cytologic smear of cervix (LGSIL)Unprotecte d sexual intercourseBirth control counseling 0 Darnell Beatty. [address] [place], [place], [id number], [place]. tel:[phone] Referring Provider: Arun Caballero, [address] [facility] [address], [place], [address] . tel:[phone] Offic/outpt E&m Estab Mod-hi 2 [facility], [address], [place], [place], [id number] , [place] tel:[phone] [facility] RLQ abdominal pain Mar-0 6-202 0 Federico Dias. [address], [place], [place], [id number], [place]. tel:[phone] Referring Provider: Arun Caballero, [address], [place], [address] . tel:[phone] Offic/outpt E&m Estab Mod-hi 2 [facility], [address], [place], [place], [id number] , [place] tel: [phone] [facility] Left ovarian cystAcute diarrhea Mar-0 4-202 0 Eileensandrarj Jaci. [address], [place], [place], [id number], [place]. tel:[phone] Referring Provider: Arun Caballero, [address], [place], [address] . tel:[phone] [facility], [address], [place], [place], [address] , [place] tel: [phone] [facility] Recurrent loss Dec-0 3-201 9 Federico Dias. [address], [place], [place], [id number], [place]. tel:[phone] Referring Provider: Arun Caballero, [address], [place], [address] . tel:[phone] [facility], [address], [place], [place], [address] , [place] tel: [phone] [facility] Recurrent loss Jun- 6-201 9 Federico Dias. [address], [place], [place], [id number], [place]. tel:[phone] [facility], [address], [place], [place], [id number] , [place] tel: [phone] [facility] Recurrent loss Jun- 6-201 9 Federico Dias. [address], [place], [place], [id number], [place]. tel:[phone] Referring Provider: Arun Caballero, [address], [place], [address] . tel:[phone] Preven E&m Estab Pt; 18-39 Yr [facility], [address], [place], [place], [id number] , [place] tel:[phone] [facility] Encntr for chief arson division exam (general) (routine) w/o abn findingsEncounter for screening for malignant neoplasm of cervixCIN I (cervical intraepithelial neoplasia I) 9 Federico Dias. [address], [place], [place], [address], [place]. tel:[phone] Referring Provider: Arun Caballero, [address], [place], [address] . tel:[phone] Offic/outpt E&m Estab Low-mod [facility], [address], [place], [place], [address] , [place] tel: [phone] [facility] LGSIL on Pap smear of cervixCervical high risk human papillomavirus (HPV) DNA test positive 9 Duerinckx Marcela. [address], [place], [place], [id number], [place]. tel:[phone] Referring Provider: Arun Caballero, [address], [place], [address] . tel:[phone] [facility], [address], [place], [place], [address] , [place] tel: [phone] [facility] LGSIL on Pap smear of cervix 8 Federico Dias. [address], [place], [place], [address], [place]. tel:[phone] Referring Provider: Arun Caballero, [address], [place], [address] . tel:[phone] Preven E&m Estab Pt; 18-39 Yr [facility], [address], [place], [place], [id number] , [place] tel: [phone] [facility] Encntr for chief arson division exam (general) (routine) w/o abn findingsEncounter for screening for malignant neoplasm of cervix 8 Federico Dias. [address], [place], [place], [id number], [place]. tel:[phone] Referring Provider: Arun Caballero, [address], [place], [address] . tel:[phone] Offic/outpt E&m [facility] 2 [facility], [address], [place], [place], [id number] , [place] tel: [phone] [facility] Atrophic endometriumDUB (dysfunctional uterine bleeding)Pelvic pain 8 Federico Dias. [address], [place], [place], [id number], [place]. tel:[phone] Referring Provider: Arun Caballero, [address], [place], [address] . tel:[phone] Offic/outpt E&m [facility] 4 [facility], [address], [place], [place], [id number] , [place] tel: [phone] [facility] DUB (dysfunctional uterine bleeding)Pelvic painFatigue, unspecified type 8 Duerin[place] Marcela. [address], [place], [place], [id number], [place]. tel:[phone] Referring Provider: Arun Caballero, [address], [place], [address] . tel:[phone] Offic/outpt E&m [facility], [address], [place], [place], [id number] , [place] tel: [phone] [facility] Pelvic pain 7 Duerin[place] Marcela. [address], [place], [place], [id number], . tel:[phone] Referring Provider: Arun Caballero, [address], [place], [address] . tel:[phone] Family History Family Member Type Diagnosis Age At Onset Mother Problem (finding) Ovarian Cancer Mother Problem (finding) Hypertension PAT Aunt Problem (finding) Thyroid Disease MAT Aunt Problem (finding) Breast Cancer MATGrandmother Problem (finding) Ovarian Cancer MATGrandmother Problem (finding) Diabetes Payers Payer name Insurance type Covered democrat ID Authoriza tion(s) [facility] HMO / Choice Plus CI [id number] Social History Type Description Quantity Date Captured Comments Sex Female Smoking Status No Information Sexual Orientation Straight or heterosexual Chief Complaint And Reason For Visit No Information Reason For Referral Reason For Referral No Information Plan Of Treatment Date Type Action Status Goal Tdap. Due on due Goal Influenza vaccine. Due on due Goal Pap/HPV testing. Due on due Goal Td vaccine. Due on due Goal Depression screening. Due on due Referral Referred To: J Carlos WINTERS, Misael [address] [place], [place], [phone] Ordered: Referrals: Gastroenterology - Misael Whitman MD ordered History Of Present Illness Encounter Date Complaint History Of Prese nt Illness No Information Functional Status Date Functional Assessmen t No Information Instructions Date Instruction Additional Infor mation No Information Assessments Type Assessment Date No Information Patient Care Teams Name Effective Dates (start - stop) Status Members No Information
--- OUTSIDE RECORDS SUMMARY | 2024-09-23 22:50 | XMS_ITS | Encounter Summary ---
Author Organization [facility] Address [address] [place] [address]. [place] [address] [place] [address] Care Team Providers Care Sewer Pipe Layer Helper Name Role Phone Jovita Medrano MD Primary Care Provider [phone] Encounter Details Date Type Department Care Team (Latest Contact Info) Description 06/18/2023 MyCColondeet Message Enc [facility] Group Multispecialty Care - [address], [address] [address] Barbara Arreguin MD [address] [place] [address], [address] [id number] Labs prior to meeting? Social History Tobacco Use Types Packs/Day Years [...] Total Score: 0 09/17/20 22 10:23 AM BULL LADLE TENDER documented as of this encounter Care Teams Sewer Pipe Layer Helper Relationship Specialty Start Date End Date Jovita Medrano MD [address] [facility] [address] [facility] [address] [place] [id number] PCP - General FAMILY PRACTICE 07/01/22 documented as of this encounter
--- OUTSIDE RECORDS SUMMARY | 2024-09-23 22:50 | XMS_ITS | Encounter Summary ---
Author Organization [facility] Address [address] [place] [address]. [place] [address] [place] [address] Care Team Providers Care Toddler Nanny Name Role Phone Jovita Medrano MD Primary Care Provider +1- [phone] Encounter Details Date Type Department Care Team (Late st Contact Info) Description 12/10/2022 Orders Only [facility] [address] Barbara Arreguin MD 3 [facility], [address] [id number] Social History Tobacco Use Types Packs/Day Years [...] of this encounter Visit Diagnoses Diagnosis Proteinuria, unspecified- Primary documented in this encounter Additional Health Concerns Assessment Noted Time PHQ-9 Depression Total Score: 0 12/22/20 22 10:23 AM CLASS B DRIVER documented as of this encounter Care Teams Toddler Nanny Relationship Specialty Start Date End Date Jovita Medrano MD [address] [facility] [address] [place] [address] PCP - General FAMILY PRACTICE 07/01/22 documented as of this encounter
--- OUTSIDE RECORDS SUMMARY | 2024-09-23 22:50 | XMS_ITS | Encounter Summary ---
Author Organization [facility] Address [address] [place] [address]. [place] [address] [place] [address] Care Team Providers Care Botany Professor Name Role Phone Jovita Medrano MD Primary Care Provider +1- [phone] Encounter Details Date Type Department Care Team (Latest Contact Info) Description 12/14/2022 Travel Social History Tobacco Use Types Packs/Day Years Used Date Smoking Tobacco: Never Passive Smoke Exposure: Never Smokeless Tobacco: Never Alcohol Use Standard Drinks/Week Comments Not Currently 0 (1 standard drink = 0.6 oz pur e alcohol) PHQ-2 Answer Date Recorded Patient Health Questionnaire-2 Score 0 12/14/2022 Comments Unknown Sex and Gender Information Value Date Recorded Sex Assigned at Not on file Legal Sex Female 2:40 PM CDT Gender Identity Not on file Sexual Orientation Lesbian 12/11/2022 9: 41 AM CDT COVID-19 Exposure Response Date Recorded In the last 10 days, have yo u been in contact with someone who was confirmed or suspected to have Coronavirus/COVID-19? No / Unsure 12/14/2022 10:26 AM CDT documented as of this encounter Plan of Treatment Not on file documented as of this encounter Visit Diagnoses Not on filedocumented in this encounter Additional Health Concerns Assessment Noted Time PHQ-9 Depression Total Score: 0 09/17/20 10:23 AM PRODUCE BUYER documented as of this encounter Care Teams Botany Professor Relationship Specialty Start Date End Date Jovita Medrano MD [address] [facility] [address] [place] [address] PCP - General FAMILY PRACTICE 07/01/22 documented as of this encounter
--- OUTSIDE RECORDS SUMMARY | 2024-09-23 22:50 | XMS_ITS | Encounter Summary ---
Author Organization [facility] Address [address] [place] [address]. [place], [place] [id number] [place] [id number] Care Team Providers Care Mud Analysis Well Logging Operator Name Role Phone Jovita Medrano MD Primary Care Provider +1- [phone] Reason for Visit * Reason Comments Lab (SCAN) Encounter Details Date Type Department Care Team (Latest Contact Info) Description 08/06/2021 Scan HEALTH INFO SRVCS Scanned, Doc Med [...] Coronavirus/COVID-19? No / Unsure 09/17/2022 9:26 AM TAPING MACHINE OPERATOR documented as of this encounter Plan of Treatment Not on file documented as of this encounter Procedures Procedure Name Priority Date/Time Associated Diagnosis Comments OUTSIDE LAB (SCAN ORDER) 08/06/2021 OUTSIDE LAB (SCAN ORDER) 08/06/2021 documented in this encounter Results * OUTSIDE LAB (SCAN) (08/06/2021) 08/06/2021 [facility] Scanned SCANNING Final Resu lt * OUTSIDE LAB (SCAN) (08/06/2021) 08/06/2021 [facility] Scanned SCANNING Final Resu lt documented in this encounter Visit Diagnoses Not on filedocumented in this encounter Care Teams Mud Analysis Well Logging Operator Relationship Specialty Start Date End Date Jovita Medrano MD [address] [facility] [address] [place] [address] PCP - General FAMILY PRACTICE 07/01/22 documented as of this encounter
--- OUTSIDE RECORDS SUMMARY | 2024-09-23 22:50 | XMS_ITS | Encounter Summary ---
Author Organization [facility] Address [address] [place] [address]. [place] [address] [place] [address] Care Team Providers Care Vascular Technician Name Role Phone Jovita Medrano MD Primary Care Provider +1- [phone] Encounter Details Date Type Department Care Team (Latest Contact Info) Description 09/17/2022 Travel Social History Tobacco Use Types Packs/Day [...] Coronavirus/COVID-19? No / Unsure 09/17/2022 9:26 AM WALKING DRAGLINE OPERATOR documented as of this encounter Plan of Treatment Not on file documented as of this encounter Visit Diagnoses Not on filedocumented in this encounter Additional Health Concerns Assessment Noted Time PHQ-9 Depression Total Score: 0 09/17/20 10:23 AM WALKING DRAGLINE OPERATOR documented as of this encounter Care Teams Vascular Technician Relationship Specialty Start Date End Date Jovita Medrano MD [address] [facility] [address] [place] [address] PCP - General FAMILY PRACTICE 07/01/22 documented as of this encounter
--- OUTSIDE RECORDS SUMMARY | 2024-09-23 22:50 | XMS_ITS | Encounter Summary ---
Author Organization [facility] Address [address] [place] [address]. [place] [address] [place] [address] Care Team Providers Care Waste Oil Pumper Name Role Phone Bridger Lagos MD Primary Care Provider +1- [phone] Reason for Visit * Reason Comments Chronic Kidney Disease * Consultation/Treatment (Routine) - Closed Specialty Diagnoses / Procedures Referred By Contac t Referred To Contact NEPHROLOGY Diagnoses Proteinuria, unspecified Bridger Lagos MD [address] [facility] [address] [place] [address] Phone: tel: fax: Saul Arreguin MD [address] [address] Phone: tel: fax: Referral ID Status Reason Start Date Expiration Date Visits Re quested Visits Authorized [id number] Closed 07/01/2022 08/01/2023 100 100 Encounter Details Date Type Department Care Team (Latest Contact Info) Description 12/14/2022 10:40 AM CDT Office Visit [facility] - [facility] [address] [facility], [facility] [address] [place] [address] Saul Arreguin MD 3 [facility], [facility] [address] [place] [address] Chronic Kidney Disease Social History Tobacco Use Types Packs/Day Years [...] Sign Reading Time Taken Comments Blood Pressure 113/80 12/14/2022 10:33 AM CDT Pulse 91 12/14/2022 10:33 AM CDT Temperature 37.4 ??C (99.4 ??F) 12/14/2022 10:33 AM C DT Respiratory Rate - - Oxygen Saturation 99% 12/14/2022 10:33 AM CDT Inhaled Oxygen Concentration - - Weight 59.9 kg (132 lb) 12/14/2022 10:33 AM CDT Height 165.1 cm (5' 5 ) 12/14/2022 10:33 AM CDT Body Mass Index 21.97 12/14/2022 10:33 AM CDT documented in this encounter Progress Notes * Saul Arreguin MD - 12/14/2022 10:40 AM CDT Images from the original note were not included. Nephrology Office Note Jenna Cox is an 32-year-old female. Chief Complaint: Chronic Kidney Disease HPI: HPI Mrs. Cox a 32 y.o female with hx of GERD, IBS, mixed connective tissue disease (Rheumatoid arthritis and Sjogren disease), hx of asthma. -09/17: requesting records from her prior mutual fund sales agent in [place]. -she moved to this area in 04/17 from [place]; she has a diagnosis of Rheumatoid arthritis and Sjogren disease. She used to follow up with a mutual fund sales agent in [place] and now transitioned to [facility] -she was told that she had proteinuria and occ microscopic hematuria for which was seen by urologist before and was told that her scan was fine; she was told that the bladder was not emptying correctly due to spams for which she took oxybutynin -she has chronic headache / dizziness and on/ off diarrhea / constipation (suspicion of IBS or Crohn???s disease; plan for scope in 2 days). She denied cough, fever, CP, SOB, hematuria or dysuria. Nohematochezia -chronic back / joints pain -no hx of kidney stones and no family hx of kidney disease. -NSAIDs; hx of naproxen use; 2 pills a day for 2-3 years; off 2020 -volume; no edema Medical History: Past Medical History: Diagnosis Date ??? ADHD ??? Chronic headaches ??? GERD (gastroesophageal reflux disease) ??? IBS (irritable bowel syndrome) ??? Mixed connective tissue disease (CMS/HCC) ??? Ovarian cyst Patient Active Problem List Diagnosis ??? Proteinuria, unspecified type ??? Rheumatoid arteritis (CMS/HCC) ??? Sjogren's syndrome, with unspecified organ involvement (CMS/HCC) Allergies: Allergies Allergen Reactions ??? Advair Diskus [Fluticasone-Salmeterol] Swelling ??? Flonase [Fluticasone] Swelling Social History: Social History Tobacco Use ??? Smoking status: Never Passive exposure: Never ??? Smokeless tobacco: Never Substance Use Topics ??? Alcohol use: Not Currently Surgical History: History reviewed. No pertinent surgical history. Family History: Family History Problem Relation Name Age of Onset ??? Hypertension Mother ??? Alcohol Abuse Mother ??? Depression Mother ??? Alcohol Abuse Father ??? Cancer Father ??? Depression Sister Current Medications: Current Outpatient Medications Medication Sig Dispense Refill ??? ALBUTEROL IN ??? albuterol sulfate HFA 108 (90 Base) MCG/ACT inhaler INHALE 1 PUFF BY MOUTH EVERY 4 HOURS NEEDED FOR SHORTNESS OF BREATH OR WHEEZING ??? amphetamine-dextroamphetamine (ADDERALL) 5 MG tablet TAKE 2 TABLETS BY MOUTH TWICE DAILY 4 TO 6HOURS APART ??? fexofenadine-pseudoephedrine ER (JUAN-D 12-HR) 60-120 MG 12 hr tablet Take 1 tablet by mouth2 (two) times daily. PRN ??? fluticasone propionate (FLONASE) 50 MCG/ACT nasal spray 2 sprays by Each Nostril route daily. SHAKE LIQUID ??? folic acid (FOLVITE) 1 MG tablet Take 1 tablet (1 mg total) by mouth daily. ??? hydroxychloroquine (PLAQUENIL) 200 MG tablet Take 1 tablet (200 mg total) by mouth daily. ??? lisinopril (PRINIVIL) 2.5 MG tablet Take 1 tablet (2.5 mg total) by mouth daily. 90 tablet 3 ??? methotrexate (TREXALL) 2.5 MG tablet Take 1 tablet (2.5 mg total) by mouth once a week. ??? NORTREL 1/35, 28, 1-35 MG-MCG tablet Take 1 tablet by mouth daily. ??? oxybutynin XL (DITROPAN-XL) 5 MG 24 hr tablet Take 1 tablet (5 mg total) by mouth daily. ??? traZODone (DESYREL) 50 MG tablet TAKE 1 TABLET BY MOUTH EVERY DAY AT BEDTIME NEEDED FOR INSOMNIA ??? vitamin D3 (CHOLECALCIFEROL) 25 mcg tablet Take 1 tablet (25 mcg total) by mouth daily. ??? NURTEC 75 MG disintegrating tablet DISSOLVE 1 TABLET ON THE TONGUE EVERY DAY NEEDED FOR MIGRAINE HEADACHE (Patient not taking: Reported on 12/14/2022) No current facility-administered medications for this visit. Review of Systems: ROS -General: Negative for fever, chills, malaise, or fatigue. -Eyes: Negative for eye pain, eye redness, eye discharge or itchiness. -Cardiovascular: Negative for chest pain, palpitation, lower Ext. edema -Respiratory: Negative for shortness of breath, wheezing, cough, or hemoptysis. -Gastrointestinal: chronic diarrhea, constipation. Negative for abdominal pain, bloating, Nausea, vomiting, hematemesis, or hematochezia. -Genitourinary: Negative for dysuria, frequency, urgency, nocturia, polyuria, or hematuria. -Musculoskeletal: chronic back and joints pain. -Neurological: chronic headache and dizziness. Negative for confusion, numbness, weakness -Hematologic: Negative for jaundice, easy bleeding Vitals: Filed Vitals: 12/14/22 1033 BP: 113/80 Pulse: 91 Temp: 99.4 ??F (37.4 ??C) SpO2: 99% Weight: 59.9 kg (132 lb) Height: 5' 5 (1.651 m) Physical Exam: Physical Exam -GENERAL: No acute distress, breathing comfortably on room air. -EYES: Extraocular movements intact -LUNG: Clear to auscultation bilaterally, No wheezes, No crackles -CVS: Regular rate rhythm, S1 and S2 normal -ABDOMEN: Soft, nondistended, Nontender -Musculoskeletal / EXT: no lower Ext edema. -NEURO: Alert, awake, oriented x3, No gross neuro deficit LABs SODIUM Date Value Ref Range Status 12/10/2022 139 136 - 145 MMOL/L Final POTASSIUM Date Value Ref Range Status 12/10/2022 4.0 3.5 - 5.1 MMOL/L Final CHLORIDE S/P/B Date Value Ref Range Status 12/10/2022 104 100 - 108 MMOL/L Final CO2 Date Value Ref Range Status 12/10/2022 26.9 21 - 32 MMOL/L Final ANION GAP Date Value Ref Range Status 12/10/2022 8.1 5 - 15 MMOL/L Final BUN Date Value Ref Range Status 12/10/2022 10 7 - 18 MG/DL Final CREATININE S/P/B Date Value Ref Range Status 12/10/2022 0.88 0.55 - 1.02 MG/DL Final BUN CREATININE RATIO Date Value Ref Range Status 12/10/2022 11.3 6 - 26 Final GLUCOSE Date Value Ref Range Status 12/10/2022 82 70 - 99 MG/DL Final CALCIUM Date Value Ref Range Status 12/10/2022 9.3 8.5 - 10.1 MG/DL Final Assessment/Plan: 1. Proteinuria, unspecified type BASIC METABOLIC PANEL ALBUMIN URINE RANDOM PROTEIN TOTAL URINE RANDOM lisinopril (PRINIVIL) 2.5 MG tablet 2. Rheumatoid arteritis (CMS/HCC) 1)hx of proteinuria; she has hx of Rheumatoid arthritis and Sjogren disease. She is on methotrexateand Plaquenil; -labs 12/17 with Cr of 0.9 from 0.8 (06/18)?? K 4. Prior serum albumin 4.5. Hg 15.3 (06/18) -urinalysis 12/17 from ??06/18; protein 50 from +2, RBC 2 from 0-2 WBC 2 . urine albumin 4.4mg/dl (06/18) but no creatinine . Microalbuminuria 126mg (12/17), UPC 0.31g (12/17) from 0.22g (08/17); adding small dose lisinopril. -records labs from 08/17; serum immunofixation; no monoclonal protein. ANCA negative DENZEL DNA negative. -Uric acid 4.1 (07/2021) -continuing following with mutual fund sales agent at [facility] -she used to be on NSAIDs which were stopped at this point F/U in 6 months, adding small dose lisinopril. Labs for next visit cc to PCP: Dr. Bridger Lagos Thank you for allowing me to participate in the care of this patient. SAUL ARREGUIN MD 12/14/2022 PCP: BRIDGER LAGOS MD documented in this encounter Plan of Treatment Not on file documented as of this encounter Results * (ABNORMAL) PROTEIN TOTAL URINE RANDOM (06/21/2023 9:52 AM CDT) PROTEIN URINE TOTAL RANDOM 33.9(H) <10 MG/DL 06/21/2023 10:30 AM CDT [facility] URINE SPECIMEN / Unknown 06/21/2023 9:52 AM CDT us Saul Arreguin MD URINE ORDERABLES Final Result [facility] [address] [place] [address], [place] [phone] * (ABNORMAL) ALBUMIN URINE RANDOM (06/21/2023 9:52 AM CDT) CREATININE (U) 181.0 28 - 217 MG/DL 06/21/2023 10:30 AM CDT [facility] MICROALBUMIN (U) 6.6(H) <2.0 mg/dL 06/21/20 10:30 AM CDT [facility] ALBUMIN/CREAT RATIO 36.5(H) <30 MG/G 06/21/2023 10:30 AM CDT [facility] URINE SPECIMEN / Unknown 06/21/2023 9:52 AM CDT us Saul Arreguin MD URINE ORDERABLES Final Result [facility] [address] [place] [address], [place] [phone] * (ABNORMAL) BASIC METABOLIC PANEL (06/21/2023 9:50 AM CDT) GLUCOSE 83 70 - 99 MG/DL 06/21/2023 10:31 AM CDT [facility] BUN 14 7 - 18 MG/DL 06/21/2023 10:31 AM CDT [facility] CREATININE S/P/B 0.86 0.55 - 1.02 MG/DL 06/21/2023 10:31 AM CDT [facility] SODIUM S/P/B 141 136 - 145 MMOL/L 06/21/2023 10:31 AM CDT [facility] POTASSIUM S/P/B 4.3 3.5 - 5.1 MMOL/L 06/21/2023 10:31 AM CDT [facility] CHLORIDE S/P/B 108 100 - 108 MMOL/L 06/21/2023 10:31 AM CDT [facility] CO2 28.9 21 - 32 MMOL/L 06/21/2023 10:31 AM CDT [facility] CALCIUM S/P/B 8.8 8.5 - 10.1 MG/DL 06/21/2023 10:31 AM CDT [facility] ANION GAP 4.1(L) 5 - 15 MMOL/L 06/21/2023 10:31 AM CDT [facility] BUN CREATININE RATIO 16.3 6 - 26 06/21/2023 10:31 AM CDT [facility] GFR ESTIMATE >90 >90 ML/MIN/1.7 3 M2 06/21/2023 10:31 AM CDT [facility] Comment: NOTE: eGFR is not calculated for patients <18 years of age. This is an estimated GFR calculation using the new CKD EPI creatinine equation without race and so does not require a correction factor for race. This estimated GFR should not be used for calculating drug doses. 06/21/2023 9:50 AM CDT us Saul Arreguin MD LABORATORY Final Result [facility] [address] [place] [address], documented in this encounter Visit Diagnoses Diagnosis Proteinuria, unspecified type- Primary Rheumatoid arteritis ([facility]) Other specified disorders of arteries and arterioles documented in this encounter Additional Health Concerns Assessment Noted Time PHQ-9 Depression Total Score: 0 09/17/20 22 10:23 AM LAYUP WORKER documented as of this encounter Care Teams Waste Oil Pumper Relationship Specialty Start Date End Date Bridger Lagos MD [address] [facility] [address] [facility] [address] [place] [address] PCP - General FAMILY PRACTICE 07/01/22 documented as of this encounter
--- OUTSIDE RECORDS SUMMARY | 2024-09-23 22:50 | XMS_ITS | Encounter Summary ---
Author Organization [facility] Address [address] [place] [address]. [place] [address] [place] [address] Care Team Providers Care Stand Up Comedian Name Role Phone Bridger Lagos MD Primary Care Provider [phone] Reason for Visit * Reason Comments New Patient Proteinuria * Consultation/Treatment (Routine) - Closed Specialty Diagnoses / Procedures Referred By Contac t Referred To Contact NEPHROLOGY Diagnoses Proteinuria, unspecified Bridger Lagos MD [address] [facility] [address] [place] [address] Phone: tel: fax: Saul Arreguin MD [address] [place] [address] Phone: tel: fax: Referral ID Status Reason Start Date Expiration Date Visits Re quested Visits Authorized [id number] Closed 07/01/2022 08/01/2023 100 100 Encounter Details Date Type Department Care Team (Latest Contact Info) Description 09/17/2022 1:30 PM VENEER GLUE SPREADER Telemedicine [facility] Multispecialty Care - [facility] 3 [facility], [address] [address] Saul Arreguin MD 3 [facility], [address] [phone] New Patient (Proteinuria/) Social History Tobacco Use Types Packs/Day Years Used Date Smoking Tobacco: Never Passive Smoke Exposure: Never Smokeless Tobacco: Never Tobacco Cessation:Counseling Given: Not Answered PHQ-2 Answer Date Recorded Patient Health Questionnaire-2 [...] Coronavirus/COVID-19? No / Unsure 09/17/2022 9:26 AM VENEER GLUE SPREADER documented as of this encounter Progress Notes * Saul Arreguin MD - 09/17/2022 1:30 PM CST Images from the original note were not included. Nephrology Office Note I introduced and identified myself, received verbal consent from the patient to proceed with this video visit and made the patient aware that the same confidentiality and manager business information practices apply. The patient joined the video visit from Home. I completed the virtual visit from Home. [facility] with this visit Nurse: tammy wood. Total Time Spent in Minutes: 46 Jenna Cox is an 31-year-old female. Chief Complaint: New Patient (Proteinuria/) HPI: HPI Mrs. Cox a 31 y.o female with hx of GERD, IBS, mixed connective tissue disease (Rheumatoid arthritis and Sjogren disease), hx of asthma. -she moved to this area in 04/17 from [place]; she has a diagnosis of Rheumatoid arthritis and Sjogren disease. She is in the process to see a Marine Propulsion Technician in this area -she was told that she had proteinuria and occ microscopic hematuria for which was seen by urologist before and was told that her scan was fine; she was told that the bladder was not emptying correctly due to spams for which she took oxybutynin -she said that she has chronic headache / dizziness and on/ off diarrhea / constipation (suspicion of IBS or Crohn???s disease), in the process to see a GI, had hx of hematochezia. No gross hematuria, dysuria. -chronic back / joints pain -no hx of kidney stones and no family hx of kidney disease. -Hypertension: Average home blood pressure readings; -Diabetes Mellitus: Average home blood sugar readings; -NSAIDs; hx of naproxen use; 2 pills a day for 2-3 years; off 2020 -volume; no edema Medications includes but not limited to Inhalers, vitD 1K units daily, folic acid, Plaquenil, methotrexate 2020 Medical History: Past Medical History: Diagnosis Date [...] Substance Use Topics ??? Alcohol use: Not on file Surgical History: History reviewed. No pertinent surgical history. Family History: Family History Problem Relation Name Age of Onset ??? Hypertension Mother ??? Alcohol Abuse Mother ??? Depression Mother ??? Alcohol Abuse Father ??? Cancer Father ??? Depression Sister Current Medications: Current Outpatient Medications Medication Sig Dispense Refill ??? fexofenadine-pseudoephedrine ER (JUAN-D 12-HR) 60-120 MG 12 hr tablet Take 1 tablet by mouth2 (two) times daily. PRN ??? albuterol sulfate HFA 108 (90 Base) MCG/ACT inhaler INHALE 1 PUFF BY MOUTH EVERY 4 HOURS NEEDED FOR SHORTNESS OF BREATH OR WHEEZING ??? amphetamine-dextroamphetamine (ADDERALL) 5 MG tablet TAKE 2 TABLETS BY MOUTH TWICE DAILY 4 TO 6HOURS APART ??? fluticasone propionate (FLONASE) 50 MCG/ACT nasal spray 2 sprays by Each Nostril route daily. SHAKE LIQUID ??? folic acid (FOLVITE) 1 MG tablet Take 1 mg by mouth daily. ??? hydroxychloroquine (PLAQUENIL) 200 MG tablet Take 200 mg by mouth daily. ??? methotrexate (TREXALL) 2.5 MG tablet Take 2.5 mg by mouth once a week. ??? NORTREL 1/35, 28, 1-35 MG-MCG tablet Take 1 tablet by mouth daily. ??? NURTEC 75 MG disintegrating tablet DISSOLVE 1 TABLET ON THE TONGUE EVERY DAY NEEDED FOR MIGRAINE HEADACHE ??? oxybutynin XL (DITROPAN-XL) 5 MG 24 hr tablet Take 5 mg by mouth daily. ??? traZODone (DESYREL) 50 MG tablet TAKE 1 TABLET BY MOUTH EVERY DAY AT BEDTIME NEEDED FOR INSOMNIA ??? vitamin D3, cholecalciferol, 1000 UNIT Tab tablet Take 1 tablet by mouth daily. No current facility-administered medications for this visit. Review of Systems: ROS -General: Negative for fever, chills, malaise, or fatigue. -Eyes: Negative for eye pain, eye redness, eye discharge or itchiness. -Cardiovascular: Negative for chest pain, palpitation, lower Ext. edema -Respiratory: Negative for shortness of breath, wheezing, cough, or hemoptysis. -Gastrointestinal: on/off diarrhea / constipation. Negative for abdominal pain, bloating, Nausea, vomiting, hematemesis, or hematochezia. -Genitourinary: Negative for dysuria, frequency, urgency, nocturia, polyuria, or hematuria. -Musculoskeletal: chronic back and joints pain. -Neurological: on/off dizziness and headache. Negative for confusion, numbness, weakness -Hematologic: Negative for jaundice, easy bleeding, easy bruising, or blood clots. Vitals: There were no vitals filed for this visit. Physical Exam: Physical Exam Exam was not performed face to face as this is a tele-health / video visit due to current snow stormy weather / COVID-19 pandemic as limiting exposure of patient to medical care facility to decrease risk of exposure. Patient checked the legs; no edema. patient is comfortable, no distress, breathingcomfortably on room air, no wheezes per patient, abdomen was soft and non-distended, neither tenderper patient, no problems with orientation, memory, sensory or motor issues. LABs Assessment/Plan: 1. Proteinuria, unspecified type BASIC METABOLIC PANEL URINALYSIS, AUTO, COMPLETE DENZEL IFA SCRN, [place] REFLEX TO TITER DNA ANTIBODY, [place]/DBL STRAN COMPLEMENT PROFILE I ALBUMIN URINE RANDOM PROTEIN TOTAL URINE RANDOM 2. Rheumatoid arteritis (CMS/HCC) 3. Sjogren's syndrome, with unspecified organ involvement (CMS/HCC) 1)hx of proteinuria; she has hx of Rheumatoid arthritis and Sjogren disease. She is on methotrexateand Plaquenil; in the process to see a new light equipment operator -we received blurry labs in the chart for which the patient accessed her medical records through her phone and she mentioned that there was labs in 06/18 with serum creatinine of 0.8, serum albumin 4.5, Hg 15.3 (06/18) -urinalysis 06/18; protein +2, RBC 0-2 . urine albumin 4.4mg/dl, we couldn???t find urine protein orurine creatinine but probably albuminuria ratio is low since urine albumin was low. -requesting records of labs and urine testing from her prior light equipment operator in [place]. -ordering labs for next visit in 3 months including urine testing with DENZEL, anti-DSDNA and complement levels -she used to be on NSAIDs which were stopped at this point -previous records and labs were reviewed F/U in 3 months, requesting records from her prior light equipment operator in [place]. Ordering labs for next visit cc to PCP: Dr. Bridger Lagos Thank you for allowing me to participate in the care of this patient. SAUL ARREGUIN MD 09/17/2022 PCP: BRIDGER LAGOS MD ER GLUE SPREADER documented in this encounter Plan of Treatment Not on file documented as of this encounter Results * (ABNORMAL) COMPLEMENT PROFILE I (12/10/2022 11:31 AM CDT) C1 ESTERASE INHIBIT TOTAL 28 21 - 39 mg/dL 12/16/2022 2:16 PM CDT [facility] COMPLEMENT C3 127 83 - 193 mg/dL 12/16/2022 12:06 PM CDT [facility] COMPLEMENT C4 23 15 - 57 mg/dL 12/16/2022 12:06 PM CDT [facility] COMPLEMENT CH50 >60(H) 31 - 60 U/mL 12/16/2022 12:06 PM CDT [employer] Comment: Test Performed by [employer], [email or web address], [id number] [place], [place] Jesse Brown M.D., Ph.D., Director of Laboratories , CLIA [id number] 12/10/2022 11:3 1 AM CDT Saul Arreguin MD LABORATORY Final Result Performing Organization Address City/[facility]/ZIP Co de Phone Number [facility] [address] [place], [place] , [place] [phone] * DNA ANTIBODY, [place]/DBL STRAN (12/10/2022 11:31 AM CDT) DNA (DS) ANTIBODY <1 <=4 IU/mL 023 10:13 AM CDT [employer] MELLYMARK [place] Comment: ? Value ??Interpretation ? <or=4 IU/mL: Negative ? 5 - 9 IU/mL: Indeterminate ?>or=10 IU/mL: Positive Test Performed by [employer] [place], [email or web address], [id number] [place], [place] Jesse Brown M.D., Ph.D., Director of Laboratories , CLIA [id number] 12/10/2022 11:3 1 AM CDT Saul Arreguin MD LABORATORY Final Result [facility] [address] [place], [place] , [place] [phone] * DENZEL IFA SCRN, [place] REFLEX TO TITER (12/10/2022 11:31 AM CDT) DENZEL Negative Negative 12/15/2022 2:00 PM CDT [employer] ANDREBintaIONA JENNINGS Comment: DENZEL IFA is a first [...] AC-0: Negative International Consensus on DENZEL Patterns https://doi.org/10.1515/knbp-2489-8068 For additional information, please refer to http://education.SocialEars/faq/IBT719 (This link is being provided for informational/ educational purposes only.) Test Performed by [employer], [employer] [facility], [address] [place] [address] Jesse Brown M.D., Ph.D., Director of Laboratories , [place] [id number] 12/10/2022 11:3 1 AM CDT us Sual Arreguin MD LABORATORY Final Result [employer] , * (ABNORMAL) BASIC METABOLIC PANEL (12/10/2022 11:31 AM CDT) Pathologist [facility] GLUCOSE 82 70 - 99 MG/DL 12/10/2022 12:22 PM CDT [facility] BUN 10 7 - 18 MG/DL 12/10/2022 12:22 PM CDT [facility] CREATININE S/P/B 0.88 0.55 - 1.02 MG/DL 12/10/2022 12:22 PM CDT [facility] SODIUM S/P/B 139 136 - 145 MMOL/L 12/10/2022 12:22 PM CDT [facility] POTASSIUM S/P/B 4.0 3.5 - 5.1 MMOL/L 12/10/2022 12:22 PM CDT [facility] CHLORIDE S/P/B 104 100 - 108 MMOL/L 12/10/2022 12:22 PM CDT [facility] CO2 26.9 21 - 32 MMOL/L 12/10/2022 12:22 PM CDT [facility] CALCIUM S/P/B 9.3 8.5 - 10.1 MG/DL 12/10/2022 12:22 PM CDT [facility] ANION GAP 8.1 5 - 15 MMOL/L 12/10/2022 12:22 PM CDT [facility] BUN CREATININE RATIO 11.3 6 - 26 12/10/2022 12:22 PM CDT [facility] GFR ESTIMATE 89(L) >90 ML/MIN/1.7 3 M2 12/10/2022 12:22 PM CDT [facility] Comment: NOTE: eGFR is not calculated for patients <18 years of age. This is an estimated GFR calculation using the new CKD EPI creatinine equation without race and so does not require a correction factor for race. This estimated GFR should not be used for calculating drug doses. 12/10/2022 11:3 1 AM CDT Saul Arreguin MD LABORATORY Final Result [facility] [address] [place] [address], [place] [phone] * (ABNORMAL) PROTEIN TOTAL URINE RANDOM (12/10/2022 11:30 AM CDT) PROTEIN URINE TOTAL RANDOM 56.9(H) <10 MG/DL 12/10/2022 12:19 PM CDT [facility] URINE SPECIMEN / Unknown 12/10/2022 11:30 AM CDT Saul Arreguin MD URINE ORDERABLES Final Result [facility] [address] [place] [address], [place] [phone] * (ABNORMAL) ALBUMIN URINE RANDOM (12/10/2022 11:30 AM CDT) CREATININE (U) 181.0 28 - 217 MG/DL 12/10/2022 12:19 PM CDT [facility] MICROALBUMIN (U) 22.8(H) <2.0 mg/dL 12/10/2022 12:19 PM CDT [facility] ALBUMIN/CREAT RATIO 126.0(H) <30 MG/G 12/10/2022 12:19 PM CDT [facility] URINE SPECIMEN / Unknown 12/10/2022 11:30 AM CDT Saul Arreguin MD URINE ORDERABLES Final Result Performing Organization Address City/[facility]/ZIP Co de Phone Number [facility] [address] [place] [address], [place] [phone] * (ABNORMAL) URINALYSIS, AUTO, COMPLETE (12/10/2022 11:30 AM CDT) SPECIMEN TYPE URINE CLEAN CATCH 12/10/2022 11:14 AM CDT [facility] COLOR (U) YELLOW 12/10/2022 12:02 PM T [facility] TRANSPARENCY CLEAR 12/10/2022 12:02 PM T [facility] SPECIFIC GRAVITY (U) 1.018 1.001 - 1.030 12/10/2022 12:02 PM T [facility] U PH 6.0 5.0 - 9.0 12/10/2022 12:02 PM T [facility] LEUKOCYTES (U) NEGATIVE NEGATIVE 12/10/2022 12:02 PM T [facility] NITRITES NEGATIVE NEGATIVE 12/10/2022 12:02 PM [facility] PROTEIN (U) 50(H) <30 MG/DL 12/10/2022 12:02 PM T [facility] URINE GLUCOSE NORMAL NORMAL MG/DL 12/10/2022 12:02 PM T [facility] KETONES MG/DL (U) NEGATIVE NEGATIVE MG/DL 12/10/2022 12:02 PM T [facility] UROBILINOGEN NORMAL NORMAL MG/DL 12/10/2022 12:02 PM T [facility] BILIRUBIN (U) NEGATIVE NEGATIVE MG/DL 12/10/2022 12:02 PM T [facility] BLOOD (U) NEGATIVE NEGATIVE 12/10/2022 12:02 PM T [facility] MUCUS FEW /LPF 12/10/2022 12:02 PM T [facility] WBC/HPF 2 <6 /HPF 12/10/2022 12:02 PM T [facility] RBC/HPF 2 <6 /HPF 12/10/2022 12:02 PM T [facility] BACTERIA (U) RARE(A) NONE /HPF 12/10/2022 12:02 PM CDT [facility] SQUAMOUS EPITHELIALS RARE /HPF 12/10/2022 12:02 PM CDT [facility] URINE SPECIMEN OBTAINED BY CLEAN CATCH PROCEDURE / Unknown 12/10/2022 11:30 AM CDT us Saul Arreguin MD URINE ORDERABLES Final Result [facility] [address] [place] [address], documented in this encounter Visit Diagnoses Diagnosis Proteinuria, unspecified type- Primary Rheumatoid arteritis (CMS/HCC HHS/HCC) Other specified disorders of arteries and arterioles Sjogren's syndrome, with unspecified organ involvement (CMS/HCC HHS/HCC) documented in this encounter Additional Health Concerns Assessment Noted Time PHQ-9 Depression Total Score: 0 09/17/20 10:23 AM VENEER GLUE SPREADER documented as of this encounter Care Teams Stand Up Comedian Relationship Specialty Start Date End Date Bridger Lagos MD [address] [facility] [address] [facility] [address] [place] [address] PCP - General FAMILY PRACTICE 07/01/22 documented as of this encounter
--- OUTSIDE RECORDS SUMMARY | 2024-09-23 22:51 | XMS_ITS | Continuity of Care Document ---
Author Organization [facility] Address [address] [place] [address] Phone Care Team Providers Care Donation Worker Name Role Phone Federico WINTERS, Arun Unavailable Unavailable Allergies, Adverse Reactions, Alerts Substance Reaction Status Criticality SALMETEROL XINAFOATE Active No Info rmation FLUTICASONE PROPIONATE Active No In formation Medications Medication Instructions Dosage Effective Dates (start - stop) Status Comments Cyclafem (28) 1 mg-35 mcg tablet take 1 tablet by oral route for 21 consecutive days, followed by 7 days off - Active fluconazole 150 mg tablet take 1 tablet by oral route once 150 MG - Active naproxen 500 mg tablet take 1 tablet by oral route 2 times every day with food 500 MG - Active Plaquenil 200 mg tablet take 1 tablet by oral route 2 times every day 200 MG - Active omeprazole 20 mg capsule,delayed release take 1 capsule by oral route every day before a meal 20 MG - Active Procedures Procedure Date Offic/outpt [...] Diagnoses Date Provider Providers Copied on Encounter [facility], [address], [place], [place], [id number] , [place] tel: [phone] [facility] No Information 1 Federico Dias. [facility], [id number], [place]. tel:[phone] Offic/outpt [facility], [address], [place], [place], [id number] , [place] tel: [phone] [facility] Low grade squamous intraepithelial lesion on cytologic smear of cervix (LGSIL)Unprotecte d sexual intercourseBirth control counseling 0 Darnell Beatty. [address], [place], [id number], [place]. tel:[phone] Referring Provider: Arun Caballero, [address] [facility] [address], [place], [address] . tel:[phone] Offic/outpt E&m Estab Mod-hi 2 [facility], [address], [place], [place], [id number] , [place] tel:[phone] [facility] RLQ abdominal pain Mar-0 6-202 0 Federico Dias. [address], [place], [place], [id number], [place]. tel:[phone] Referring Provider: Arun Caballero, [address], [place], [address] . tel:[phone] Offic/outpt E&m Estab Mod-hi 2 [facility], [address], [place], [place], [id number] , [place] tel: [phone] [facility] Left ovarian cystAcute diarrhea Mar-0 4-202 0 Eileensandrarj Jaci. [address], [place], [place], [id number], [place]. tel:[phone] Referring Provider: Arun Caballero, [address], [place], [address] . tel:[phone] [facility], [address], [place], [place], [address] , [place] tel: [phone] [facility] Recurrent loss Dec-0 3-201 9 Federico Dias. [address], [place], [place], [id number], [place]. tel:[phone] Referring Provider: Arun Caballero, [address], [place], [address] . tel:[phone] [facility], [address], [place], [place], [id number] , [place] tel: [phone] [facility] Recurrent loss Jun- 6-201 9 Federico Dias. [address], [place], [place], [id number], [place]. tel:[phone] [facility], [address], [place], [place], [id number] , [place] tel: [phone] [facility] Recurrent loss Jun- 6-201 9 Federico Dias. [address], [place], [place], [id number], [place]. tel:[phone] Referring Provider: Arun Caballero, [address], [place], [address] . tel:[phone] Preven E&m Estab Pt; 18-39 Yr [facility], [address], [place], [place], [id number] , [place] tel:[phone] [facility] Encntr for nurse gynecology exam (general) (routine) w/o abn findingsEncounter for screening for malignant neoplasm of cervixCIN I (cervical intraepithelial neoplasia I) 9 Federico Dias. [address], [place], [place], [id number], [place]. tel:[phone] Referring Provider: Arun Caballero, [address], [place], [address] . tel:[phone] Offic/outpt E&m Estab Low-mod [facility], [address], [place], [place], [id number] , [place] tel: [phone] [facility] LGSIL on Pap smear of cervixCervical high risk human papillomavirus (HPV) DNA test positive 9 Duerin[place]x Marcela. [address], [place], [place], [id number], [place]. tel:[phone] Referring Provider: Arun Caballero, [address], [place], [address] . tel:[phone] [facility], [address], [place], [place], [id number] , [place] tel: [phone] [facility] LGSIL on Pap smear of cervix 8 Federico Dias. [address], [place], [place], [id number], [place]. tel:[phone] Referring Provider: Arun Caballero, [address], [place], [address] . tel:[phone] Preven E&m Estab Pt; 18-39 Yr [facility], [address], [place], [place], [id number] , [place] tel: [phone] [facility] Encntr for nurse gynecology exam (general) (routine) w/o abn findingsEncounter for screening for malignant neoplasm of cervix 8 Federico Dias. [address], [place], [place], [id number], [place]. tel:[phone] Referring Provider: Arun Caballero, [address], [place], [address] . tel:[phone] Offic/outpt E&m [facility] 2 [facility], [address], [place], [place], [id number] , [place] tel: [phone] [facility] Atrophic endometriumDUB (dysfunctional uterine bleeding)Pelvic pain 8 Federico Dias. [address], [place], [place], [address], [place]. tel:[phone] Referring Provider: Arun Caballero, [address], [place], [address] . tel:[phone] Offic/outpt E&m [facility] 4 [facility], [address], [place], [place], [id number] , [place] tel: [phone] [facility] DUB (dysfunctional uterine bleeding)Pelvic painFatigue, unspecified type 8 [place] Marcela. [address], [place], [place], [id number], [place]. tel:[phone] Referring Provider: Arun Caballero, [address], [place], [address] . tel:[phone] Offic/outpt E&m [facility] [place] [facility], [address], [place], [place], [id number] , [place] tel: [phone] [facility] Pelvic pain 7 Duerin[place]x Marcela. [address], [place], [place], [address], . tel:[phone] Referring Provider: Arun Caballero, [address], [place], [address] . tel:[phone] Family History Family Member Type Diagnosis Age At Onset Mother Problem (finding) Ovarian Cancer Mother Problem (finding) Hypertension PAT Aunt Problem (finding) Thyroid Disease MAT Aunt Problem (finding) Breast Cancer MATGrandmother Problem (finding) Ovarian Cancer MATGrandmother Problem (finding) Diabetes Payers Payer name Insurance type Covered alliance party ID Authoriza tion(s) [facility] HMO / Choice Plus CI [id number] Social History Type Description Quantity Date Captured Comments Sex Female Smoking Status No Information Sexual Orientation Straight or heterosexual Chief Complaint And Reason For Visit No Information Reason For Referral Reason For Referral No Information Plan Of Treatment Date Type Action Status Goal Depression screening. Due on due Goal Td vaccine. Due on due Goal Pap/HPV testing. Due on due Goal Influenza vaccine. Due on due Goal Tdap. Due on due Referral Referred To: J Carlos WINTERS, Misael [address] [place], [place], [phone] Ordered: Referrals: Gastroenterology - Misael Whitman MD [...]
== END 2024-09-16 16:08 | disposition home or self-care (01) ==
PROVIDERS: Emergency Provider Nurse Practitioner Family; PCP Family Medicine
DX: J02.9 Acute pharyngitis, unspecified (principal); M06.9 Rheumatoid arthritis, unspecified
CPT/HCPCS: 36416; 86308; 87081; 87880; 99213; G0463

== ENCOUNTER 2024-11-06 17:08 | Emergency (ER) | payer OTHER, SELFPAY ==
--- NOTE | ~2024-11-06 | CT_ITS ---
History: Confusion PROCEDURE: CT head without contrast. COMPARISON: 07/23/2023 TECHNIQUE: Axial imaging of the head performed from the skull base to the vertex without IV contrast. Sagittal a nd coronal reformations obtained. DLP: 605 mGy-cm FINDINGS: The ventricles are normal in size, shape and position. There is no mass, mass effect or midline shift. There is no abnormal extra-axial fluid collection or intracranial hemorrhage. Visualized paranasal sinuses are clear. The mastoid air cells are well aerated. No acute displaced fractures within the overlying cranium. Impression: No acute intracranial hemorrhage or suspicious mass effect. Reviewed, dictated and finalized at location A. [employer] Impression: No acute intracranial hemorrhage or suspicious mass effect.
--- OUTSIDE RECORDS SUMMARY | 2024-11-06 17:10 | XMS_ITS | Clinical Summary ---
Author Organization [facility] Address [facility] [place] [address] Care Team Providers Care Closing Machine Operator Name Role Phone Jovita Medrano MD Primary Care Provider [phone]- [phone] Allergies Active Allergy Reactions Criticality Noted Date [...] Date Proteinuria, unspecified type 09/17/2022 Rheumatoid arteritis ([facility]) 2 Sjogren's syndrome, with uns pecified organ involvement ([facility]) 09/17/2022 Immunizations Name Administration Dates Next Due Td, [...] 85 01/24/2024 10:32 AM CDT Temperature 37.3 C (99.1 F) 01/24/2024 10:32 AM CDT Respiratory Rate - - Oxygen Saturation 100% 01/24/2024 10:32 AM CDT Inhaled Oxygen Concentration - - Weight 60.1 kg (132 lb 6.4 oz) 01/24/2024 10:32 AM CDT Height 165.1 cm (5' 5 ) 01/24/2024 10:32 AM CDT Body Mass Index 22.03 01/24/2024 10:32 AM CDT Plan of Treatment Health Maintenance Due Date Last Done Comments Cervical Cancer Screening Pap Smear (Age 30 to 64) Every 3 Years 1989 Annual Physical 1992 Hepatitis B Vaccines (1 of 3 - 19+ 3-dose series) 2008 Cervical Cancer Screening Pap with HPV Testing (Age 30 to 64) Every 5 Years 2019 Cervical Cancer Screening with HPV 2019 COVID-19 Vaccine ( season) 2024 PHQ-2 (Physician [place]) 06/21/2024 06/21/2023 Influenza Adult (#1) 2024 PHQ-2 (Physician [place]) 09/27/2024 06/21/2023 DTaP, Tdap and Td Vaccines (3 - Td or Tdap) 04/08/2027 04/08/2017, 09/27/2005 Hepatitis C Completed 01/12/2024, 12/26, 01/12/2024, Additional history exists HPV Vaccines Aged Out No longer eligi ble based on patient's age to complete this topic Meningococcal B Vaccine Aged Out No l onger eligible based on patient's age to complete this topic Meningococcal Vaccine Aged Out No kalpana fang eligible based on patient's age to complete this topic Pneumococcal Vaccine: Pediatrics (0 to 5 Years) and At-Risk Patients (6 to 64 Years) Aged Out No longer eligible based on patient's age to complete this topic RSV Immunizations Under 20 Months Aged Out No longer eligible based on patient's age to complete this topic Insurance [facility] Care Teams Closing Machine Operator Relationship Specialty Start Date End Date Jovita Medrano MD [address] [facility] [address] [place] [address] PCP - General FAMILY PRACTICE 07/01/22
--- OUTSIDE RECORDS SUMMARY | 2024-11-06 17:10 | XMS_ITS | Encounter Summary ---
Author Organization [facility] Address [address] [place] [address] Care Team Providers Care Registrar Museum Name Role Phone Jovita Medrano MD Primary Care Provider [phone]- [phone] Encounter Details Date Type Department Care Team (Latest Contact Info) Description 07/14/2024 [employer] Message Enc [facility] Medical Group Multispecialty Care - [address], [facility] [address] [place] [address] Barbara Arreguin MD [address] [place] [address], [facility] [address] [place] [address] Protein Issues Worsening Social History Tobacco Use [...] Total Score: 0 09/17/20 22 10:23 AM MOBILE PRACTICE LEAD documented as of this encounter Care Teams Registrar Museum Relationship Specialty Start Date End Date Jovita Medrano MD [address] [facility] [address] [place] [address] PCP - General FAMILY PRACTICE 07/01/22 documented as of this encounter
--- OUTSIDE RECORDS SUMMARY | 2024-11-06 17:10 | XMS_ITS | Continuity of Care Document ---
Author Organization [facility] Address [address] [place] [address] Phone Care Team Providers Care Manager Drug Name Role Phone Federico WINTERS, Arun Unavailable [...] Diagnoses Date Provider Providers Copied on Encounter [facility], [address], [place], [place], [id number] , [place] tel: [phone] [facility] No Information 1 Federico Dias. [facility], [id number], [place]. tel:[phone] [facility] [address], [place], [place], [id number] , [place] tel: [phone] [facility] Low grade squamous intraepithelial lesion on cytologic smear of cervix (LGSIL)Unprotecte d sexual intercourseBirth control counseling 0 Darnell Beatty. [address], [id number], [place]. tel:[phone] Referring Provider: Arun Caballero, [address] [facility] [address], [place], [address] . tel:[phone] Offic/outpt E&m Estab Mod-hi 2 [facility], [address], [place], [place], [id number] , [place] tel:[phone] [facility] RLQ abdominal pain Mar-0 6-202 0 Federico Dias. [address], [place], [place], [id number], [place]. tel:[phone] Referring Provider: Arun Caballero, [address], [place], [address] . tel:[phone] Offic/outpt E&m Estab Mod-hi 2 [facility], [address], [place], [place], [id number] , [place] tel: [phone] [facility] Left ovarian cystAcute diarrhea Mar-0 4-202 0 Eileensandrarj Jaci. [address], [place], [place], [id number], [place]. tel:[phone] Referring Provider: Arun Caballero, [address], [place], [address] . tel:[phone] [facility], [address], [place], [place], [id number] , [place] tel: [phone] [facility] Recurrent loss Dec-0 3-201 9 Federico Dias. [address], [place], [place], [id number], [place]. tel:[phone] Referring Provider: Arun Caballero, [address], [place], [address] . tel:[phone] [facility], [address], [place], [place], [id number] , [place] tel: [phone] [facility] Recurrent loss Jun- 6-201 9 Federico Dias. [address], [place], [place], [id number], [place]. tel:[phone] [facility], [address], [place], [place], [id number] , [place] tel: [phone] [facility] Recurrent loss Jun- 6-201 9 Federico Dias. [address], [place], [place], [id number], [place]. tel:[phone] Referring Provider: Arun Caballero, [address], [place], [address] . tel:[phone] Preven E&m Estab Pt; 18-39 Yr [facility], [address], [place], [place], [id number] , [place] tel:[phone] [facility] Encntr for manager language exam (general) (routine) w/o abn findingsEncounter for screening for malignant neoplasm of cervixCIN I (cervical intraepithelial neoplasia I) 9 Federico Dias. [address], [place], [place], [address], [place]. tel:[phone] Referring Provider: Arun Caballero, [address], [place], [address] . tel:[phone] Offic/outpt E&m Estab Low-mod [facility], [address], [place], [place], [address] , [place] tel: [phone] [facility] LGSIL on Pap smear of cervixCervical high risk human papillomavirus (HPV) DNA test positive 9 Duerin[place] Marcela. [address], [place], [place], [address], [place]. tel:[phone] Referring Provider: Arun Caballero, [address], [place], [address] . tel:[phone] [facility], [address], [place], [place], [id number] , [place] tel: [phone] [facility] LGSIL on Pap smear of cervix 8 Federico Dias. [address], [place], [place], [id number], [place]. tel:[phone] Referring Provider: Arun Caballero, [address], [place], [address] . tel:[phone] Preven E&m Estab Pt; 18-39 Yr [facility], [address], [place], [place], [id number] , [place] tel: [phone] [facility] Encntr for manager language exam (general) (routine) w/o abn findingsEncounter for screening for malignant neoplasm of cervix 8 Federico Dias. [address], [place], [place], [id number], [place]. tel:[phone] Referring Provider: Arun Caballero, [address], [place], [address] . tel:[phone] Offic/outpt E&m [facility] 2 [facility], [address], [place], [place], [id number] , [place] tel: [phone] [facility] Atrophic endometriumDUB (dysfunctional uterine bleeding)Pelvic pain 8 Federico Dias. [address], [place], [place], [address], [place]. tel:[phone] Referring Provider: Arun Caballero, [address], [place], [address] . tel:[phone] Offic/outpt E&m [facility] 4 [facility], [address], [place], [place], [address] , [place] tel: [phone] [facility] DUB (dysfunctional uterine bleeding)Pelvic painFatigue, unspecified type 8 [place] Marcela. [address], [place], [place], [address], [place]. tel:[phone] Referring Provider: Arun Caballero, [address], [place], [address] . tel:[phone] Offic/outpt E&m [facility], [address], [place], [place], [address] , [place] tel: [phone] [facility] Pelvic pain 7 Duer[place] Marcela. [address], [place], [place], [address], . tel:[phone] Referring Provider: Arun Caballero, [address], [place], [address] . tel:[phone] Family History Family Member Type Diagnosis Age At Onset Mother Problem (finding) Ovarian Cancer Mother Problem (finding) Hypertension PAT Aunt Problem (finding) Thyroid Disease MAT Aunt Problem (finding) Breast Cancer MATGrandmother Problem (finding) Ovarian Cancer MATGrandmother Problem (finding) Diabetes Payers Payer name Insurance type Covered green party ID Authoriza tion(s) [facility] HMO / Choice Plus CI [id number] Social History Type Description Quantity Date Captured Comments Sex Female Smoking Status No Information Sexual Orientation Straight or heterosexual Chief Complaint And Reason For Visit No Information Reason For Referral Reason For Referral No Information Plan Of Treatment Date Type Action Status Goal Tdap. Due on due Goal Td vaccine. Due on due Goal Pap/HPV testing. Due on due Goal Influenza vaccine. Due on due Goal Depression screening. Due on due Referral Referred To: J Carlos WINTERS, Misael [address] [place], [place], [phone] Ordered: Referrals: Gastroenterology - Misael Whitman MD [...]
--- OUTSIDE RECORDS SUMMARY | 2024-11-06 17:10 | XMS_ITS | Encounter Summary ---
Author Organization [facility] Address [address] [place] [address] Care Team Providers Care Custom Garment Designer Name Role Phone Jovita Medrano MD Primary Care Provider [phone] Encounter Details Date Type Department Care Team (Latest Contact Info) Description 06/18/2023 MyChart Message Enc [facility] Medical Group Multispecialty Care - [address], [facility] [address] [place] [address] Barbara Arreguin MD [address] [facility], [facility] [address] [place] [address] Labs prior to meeting? Social History Tobacco [...] Total Score: 0 09/17/20 22 10:23 AM NURSE COMPANION documented as of this encounter Care Teams Custom Garment Designer Relationship Specialty Start Date End Date Rostovtseva, Jovita, MD [address] [facility] [address] [place] [address] PCP - General FAMILY PRACTICE 07/01/22 documented as of this encounter
[2024-11-06 17:23] VITALS: BP 147/100; PULSE 86; RESP 18; TEMP 36.4; O2SAT 100
--- NOTE | 2024-11-06 18:49 | ED.NEUROSD ---
HPI - Neuro Symptoms/Deficit General Chief Complaint: Seizure <Chelsie Bellamy PA-C - Last Filed: 11/08/24 19:44> Stated Complaint: seizure symptoms <Chelsie Bellamy PA-C - Last Filed: 11/08/24 19:44> Time Seen by Provider: 11/06/24 18:49 <Chelsie Bellamy PA-C - Last Filed: 11/08/24 19:44> Focused HPI: This is a 34 year old female that presents to the ER for possible adverse reaction to new medication. Reports she feels like she is intoxicated or just had anesthesia. Reports she has now developed a tremor. Reports she feels like she is depersonalized from her body. Reports recently starting Auvelity. GENERAL: Well-appearing, well-nourished, and in no acute distress. HEAD: Normocephalic, atraumatic. CHEST: Clear to auscultation. ?No respiratory distress. HEART: Regular rate and rhythm.? NEURO: ?Alert and oriented x3. Patient screened in triage and initial orders placed.? ?Additional care and disposition to be based upon?diagnostic testing and treatment. <Chelsie Bellamy PA-C - Last Filed: 11/08/24 19:44> History of Present Illness HPI Narrative: I agree with the assessment and documentation by Chelsie Bellamy PA-C. <Jessica Dillon APRN - Last Filed: 11/07/24 03:46> Related Data Home Medications: Home Medications ?Medication ?Instructions ?Recorded ?Confirmed ?Last Taken ?Type cholecalciferol (vitamin D3) 50 50 mcg PO DAILY 04/15/23 09/15/24 Unknown History mcg (2,000 unit) capsule fexofenadine 180 mg tablet 180 mg PO DAILY 04/15/23 09/15/24 Unknown History (Nuzhat Hives) methotrexate sodium 2.5 mg tablet 2.5 mg PO WEEKLY 07/13/23 09/15/24 Unknown History etanercept 25 mg/0.5 mL 25 mg subcut WEEKLY 08/14/24 09/15/24 Unknown History subcutaneous solution (Enbrel) <Chelsie Bellamy PA-C - Last Filed: 11/08/24 19:44> Allergies/Adverse Reactions: Allergies Allergy/AdvReac Type Severity Reaction Status Date / Time fluticasone (From Advair Allergy Severe Swelling Verified 11/06/24 17:28 Diskus) of Lip/Tongue/Throat salmeterol (From Advair Allergy Severe Swelling Verified 11/06/24 17:28 Diskus) of Lip/Tongue/Throat prednisone AdvReac Intermediate Dizziness Verified 11/06/24 17:28 <Chelsie Bellamy PA-C - Last Filed: 11/08/24 19:44> Review of Systems Review of Systems: All systems reviewed & are unremarkable except as noted in HPI and below <Jessica Dillon APRN - Last Filed: 11/07/24 03:46> [facility] Past Medical History Medical History: Medical History Sjogren's disease Rheumatoid arthritis Ovarian cyst IBS (irritable bowel syndrome) Chronic headaches GERD with esophagitis Mixed connective tissue disease ADHD <Chelsie Bellamy PA-C - Last Filed: 11/08/24 19:44> Surgical History Surgical History: Surgical History H/O laparoscopy lysis of adhesions H/O sinus surgery H/O colposcopy with cervical biopsy <Chelsie Bellamy PA-C - Last Filed: 11/08/24 19:44> Family History Family History: Family History Father Brain cancer Alcohol abuse Heart disease Mother Alcohol abuse Hypertension Depression Asthma Sibling Asthma Depression Grandparent Alcohol abuse Asthma Diabetes mellitus Hypertension Depression Grandparent Alcohol abuse <Chelsie Bellamy PA-C - Last Filed: 11/08/24 19:44> Social History Social History: Social History Social History: Smoking status: Never smoker Second hand tobacco smoke exposure: No Alcohol intake: never Substance use: never Substance use type: does not use Do You Feel Safe in your Home?: Yes Lack of Transportation: No Lack of Food: Never True Current Housing: I Have Housing Concerned About Future Housing: No Difficulty Paying Gas/Electric Bills: No Difficulty Paying for Meds: No Currently Unemployed: No Education: Master's Degree or Higher Difficulty w/ Childcare or Family Care: No Living arrangements: alone 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 HEAD: Normocephalic, atraumatic. NECK: Supple. No adenopathy, no masses. RESPIRATORY: Airway patent, respirations nonlabored. Clear to auscultation bilaterally, no rales, rhonchi, wheezing. CARDIOVASCULAR: Regular rate and rhythm without murmurs, rubs, or gallops. Peripheral pulses 2+ and equal bilaterally. ABDOMINAL: Soft, nontender, nondistended, no hepatosplenomegaly. Normoactive BS. MUSCULOSKELETAL: Moves all extremities. Strength/ROM intact without gross deformities. SKIN: Warm, dry, normal color. No rashes. NEURO: A&O X3. Speech clear. Cranial nerves intact. Possible hyperreflexia to lower extremities. Steady gait. Pt endorses feeling shaky and has visible tremors at rest. PSYCHIATRIC: Anxious mood (speaking quickly). <Jessica Dillon APRN - Last Filed: 11/07/24 03:46> [employer]ician [employer] signed patient out to me pending her receiving her IV fluids and medication and a reassessment. I did reassess the patient at approximately 4:50 a.m.. She was sleeping, resting comfortably at the time. Upon awakening, she states she is feeling much better, no longer tremulous. She does feel somewhat cold though a) she is near the ambulance [place] door and B) she states she is always cold/goal so this is reassuring to her because she no longer feels warm/flushed. No evidence of tremor on my exam. She feels comfortable with discharge at this time and already has plans to connect with her psychiatrist later today and they have already discussed that the new medication that she was on would be discontinued. She will provided work note for today so that she can make sure to keep this important follow-up appointment. <Vi Newell MD - Last Filed: 11/07/24 04:53> Vital Signs Vital signs: Vital Signs Temperature 97.6 F 11/06/24 17:23 Pulse Rate 86 11/06/24 17:23 Respiratory Rate 18 11/06/24 17:23 Blood Pressure 147/100 H 11/06/24 17:23 Pulse Oximetry 100 11/06/24 17:23 Oxygen Delivery Room Air 11/06/24 17:23 Temperature 98.7 F 11/06/24 21:38 Pulse Rate 72 11/07/24 05:05 Respiratory Rate 18 11/07/24 05:05 Blood Pressure 139/89 11/07/24 05:05 Pulse Oximetry 100 11/07/24 05:05 Oxygen Delivery Room Air 11/06/24 17:23 <Chelsie Bellamy PA-C - Last Filed: 11/08/24 19:44> Vital Signs Temperature 97.6 F 11/06/24 17:23 Pulse Rate 86 11/06/24 17:23 Respiratory Rate 18 11/06/24 17:23 Blood Pressure 147/100 H 11/06/24 17:23 Pulse Oximetry 100 11/06/24 17:23 Oxygen Delivery Room Air 11/06/24 17:23 Temperature 98.7 F 11/06/24 21:38 Pulse Rate 72 11/07/24 05:05 Respiratory Rate 18 11/07/24 05:05 Blood Pressure 139/89 11/07/24 05:05 Pulse Oximetry 100 11/07/24 05:05 Oxygen Delivery Room Air 11/06/24 17:23 <Jessica Dillon, KASSIDY - Last Filed: 11/07/24 03:46> Vital Signs Temperature 97.6 F 11/06/24 17:23 Pulse Rate 86 11/06/24 17:23 Respiratory Rate 18 11/06/24 17:23 Blood Pressure 147/100 H 11/06/24 17:23 Pulse Oximetry 100 11/06/24 17:23 Oxygen Delivery Room Air 11/06/24 17:23 Temperature 98.7 F 11/06/24 21:38 Pulse Rate 72 11/07/24 05:05 Respiratory Rate 18 11/07/24 05:05 Blood Pressure 139/89 11/07/24 05:05 Pulse Oximetry 100 11/07/24 05:05 Oxygen Delivery Room Air 11/06/24 17:23 <Vi Newell MD - Last Filed: 11/07/24 04:53> MDM - Neuro Symptoms/Deficit MDM Narrative Medical decision making narrative: Pt is a 34 year old female that presents to the ER for possible adverse reaction to new medication. Reports she feels like she is intoxicated or just had anesthesia. Reports she has now developed a tremor. Reports she feels like she is depersonalized from her body. Reports recently starting Auvelity. Labs Ordered: CBC, CMP Imaging Ordered: Head CT scan Medications Ordered: 1 L normal saline IV bolus, 0.5 mg IV Ativan Results: Patient's head CT scan indicates The ventricles are normal in size, shape and position. There is no mass, mass effect or midline shift. There is no abnormal extra-axial fluid collection or intracranial hemorrhage. Visualized paranasal sinuses are clear. The mastoid air cells are well aerated. No acute displaced fractures within the overlying cranium. Diagnosis: Adverse reaction to medication 0140-Reassessed patient and she reports she continues to have symptoms of ?shakiness and tremors. According to Daniel's Criteria for Serotonin Syndrome, it is difficult to rule out serotonin syndrome as pt is positive for tremor?plus hyperreflexia. Per Up-to-Date guidelines, will order Ativan IV and a 1L NS IV bolus, then re-evaluate. Patient Education/Shared MDM: Results of bloodwork and CT scan shared with patient. She endorses improvement following IV medication administration. Patient strongly advised to maintain hydration status upon discharge and follow-up with her PCP and psychiatrist as soon as possible. She will be discharged home with no new prescriptions. Strict return precautions provided. Patient verbalized understanding is in agreement with plan. Vital signs stable at time of discharge. All questions answered. <Chelsie Bellamy PA-C - Last Filed: 11/08/24 19:44> Pt is a 34 year old female that presents to the ER for possible adverse reaction to new medication. Reports she feels like she is intoxicated or just had anesthesia. Reports she has now developed a tremor. Reports she feels like she is depersonalized from her body. Reports recently starting Auvelity. Labs Ordered: CBC, CMP Imaging Ordered: Head CT scan Medications Ordered: 1 L normal saline IV bolus, 0.5 mg IV Ativan Results: Patient's head CT scan indicates The ventricles are normal in size, shape and position. There is no mass, mass effect or midline shift. There is no abnormal extra-axial fluid collection or intracranial hemorrhage. Visualized paranasal sinuses are clear. The mastoid air cells are well aerated. No acute displaced fractures within the overlying cranium. Diagnosis: Adverse reaction to medication 0140-Reassessed patient and she reports she continues to have symptoms of ?shakiness and tremors. According to Daniel's Criteria for Serotonin Syndrome, it is difficult to rule out serotonin syndrome as pt is positive for tremor?plushyperreflexia. Per Up-to-Date guidelines, will order Ativan IV and a 1L NS IV bolus, then re-evaluate. Patient Education/Shared MDM: Results of bloodwork and CT scan shared with patient. She endorses improvement following IV medication administration. Patient strongly advised to maintain hydration status upon discharge and follow-up with her PCP and psychiatrist as soon as possible. She will be discharged home with no new prescriptions. Strict return precautions provided. Patient verbalized understanding is in agreement with plan. Vital signs stable at time of discharge. All questions answered. <Jessica Dillon APRN - Last Filed: 11/07/24 03:46> Differential Diagnosis Differential diagnosis: Likely convulsions, delirium and other (serotonin syndrome) <Jessica Dillon APRN - Last Filed: 11/07/24 03:46> Lab Data Attestation: I reviewed the patient's lab results. <Jessica Dillon APRN - Last Filed: 11/07/24 03:46> Result diagrams: 11/06/24 20:55 11/06/24 20:55 <Chelsie Bellamy PA-C - Last Filed: 11/08/24 19:44> Labs: Lab Results 11/06/24 Range/Units 20:55 WBC 9.6 (4.5-10.0) K/mm3 RBC 4.53 (4.2-5.4) M/mm3 Hgb 13.9 (12.0-15.0) g/dL Hct 41.6 (37.0-47.0) % MCV 91.8 (80-100) fl MCH 30.7 (26-34) pg MCHC 33.4 (32-36) g/dl RDW 12.1 (11.5-14.5) % Plt Count 239 (150-375) k/mm3 MPV 10.6 H (7.4-10.4) fl Immature Gran % (Auto) 0.3 (0-0.5) % Neut % (Auto) 57.9 (45.5-73.1) % Lymph % (Auto) 28.7 (18.3-44.2) % [place] % (Auto) 9.5 H (2.6-8.5) % Eos % (Auto) 3.0 (0-4.4) % Baso % (Auto) 0.6 (0.2-1.2) % Lymph # (Auto) 2.74 (0.9-3.2) K/mm3 [place] # (Auto) 0.9 H (0.1-0.6) K/mm3 Eos # (Auto) 0.3 (0-0.3) K/mm3 Baso # (Auto) 0.1 (0.0-0.1) K/mm3 Abs Immat Gran (auto) 0.03 (0.00-0.031) K/mm3 Absolute Neuts (auto) 5.5 (1.3-6.7) K/mm3 Absolute Nucleated RBC 0.000 (0.0-0.012) K/mm3 Nucleated RBC % 0.0 (0.0-0.2) % Sodium 140 (137-145) mmol/L Potassium 4.1 (3.4-5.0) mmol/L Chloride 102 (98-107) mmol/L Carbon Dioxide 27 (22-30) mmol/L Anion Gap 11 (4-12) mmol/L BUN 13 D (7-17) mg/dL Creatinine 0.74 (0.7-1.0) mg/dL Estim Creat Clear Calc 79 ml/min Estimated GFR > 60 (59 - ) Glucose 92 (65-110) mg/dL Calcium 9.6 (8.4-10.2) mg/dL Total Bilirubin 0.5 (0.2-1.3) mg/dL AST 19 (14-36) U/L ALT 16 (6-35) U/L Alkaline Phosphatase 33 L (38-126) U/L Total Protein 7.0 (6.3-8.2) g/dL Albumin 4.4 (3.5-5.1) g/dL <Chelsie Bellamy PA-C - Last Filed: 11/08/24 19:44> Lab Results 11/06/24 Range/Units 20:55 WBC 9.6 (4.5-10.0) K/mm3 RBC 4.53 (4.2-5.4) M/mm3 Hgb 13.9 (12.0-15.0) g/dL Hct 41.6 (37.0-47.0) % MCV 91.8 (80-100) fl MCH 30.7 (26-34) pg MCHC 33.4 (32-36) g/dl RDW 12.1 (11.5-14.5) % Plt Count 239 (150-375) k/mm3 MPV 10.6 H (7.4-10.4) fl Immature Gran % (Auto) 0.3 (0-0.5) % Neut % (Auto) 57.9 (45.5-73.1) % Lymph % (Auto) 28.7 (18.3-44.2) % [place] % (Auto) 9.5 H (2.6-8.5) % Eos % (Auto) 3.0 (0-4.4) % Baso % (Auto) 0.6 (0.2-1.2) % Lymph # (Auto) 2.74 (0.9-3.2) K/mm3 [place] # (Auto) 0.9 H (0.1-0.6) K/mm3 Eos # (Auto) 0.3 (0-0.3) K/mm3 Baso # (Auto) 0.1 (0.0-0.1) K/mm3 Abs Immat Gran (auto) 0.03 (0.00-0.031) K/mm3 Absolute Neuts (auto) 5.5 (1.3-6.7) K/mm3 Absolute Nucleated RBC 0.000 (0.0-0.012) K/mm3 Nucleated RBC % 0.0 (0.0-0.2) % Sodium 140 (137-145) mmol/L Potassium 4.1 (3.4-5.0) mmol/L Chloride 102 (98-107) mmol/L Carbon Dioxide 27 (22-30) mmol/L Anion Gap 11 (4-12) mmol/L BUN 13 D (7-17) mg/dL Creatinine 0.74 (0.7-1.0) mg/dL Estim Creat Clear Calc 79 ml/min Estimated GFR > 60 (59 - ) Glucose 92 (65-110) mg/dL Calcium 9.6 (8.4-10.2) mg/dL Total Bilirubin 0.5 (0.2-1.3) mg/dL AST 19 (14-36) U/L ALT 16 (6-35) U/L Alkaline Phosphatase 33 L (38-126) U/L Total Protein 7.0 (6.3-8.2) g/dL Albumin 4.4 (3.5-5.1) g/dL <Jessica Dillon, MATERNAL FETAL PHYSICIAN - Last Filed: 11/07/24 03:46> Lab Results 11/06/24 Range/Units 20:55 WBC 9.6 (4.5-10.0) K/mm3 RBC 4.53 (4.2-5.4) M/mm3 Hgb 13.9 (12.0-15.0) g/dL Hct 41.6 (37.0-47.0) % MCV 91.8 (80-100) fl MCH 30.7 (26-34) pg MCHC 33.4 (32-36) g/dl RDW 12.1 (11.5-14.5) % Plt Count 239 (150-375) k/mm3 MPV 10.6 H (7.4-10.4) fl Immature Gran % (Auto) 0.3 (0-0.5) % Neut % (Auto) 57.9 (45.5-73.1) % Lymph % (Auto) 28.7 (18.3-44.2) % [place] % (Auto) 9.5 H (2.6-8.5) % Eos % (Auto) 3.0 (0-4.4) % Baso % (Auto) 0.6 (0.2-1.2) % Lymph # (Auto) 2.74 (0.9-3.2) K/mm3 [place] # (Auto) 0.9 H (0.1-0.6) K/mm3 Eos # (Auto) 0.3 (0-0.3) K/mm3 Baso # (Auto) 0.1 (0.0-0.1) K/mm3 Abs Immat Gran (auto) 0.03 (0.00-0.031) K/mm3 Absolute Neuts (auto) 5.5 (1.3-6.7) K/mm3 Absolute Nucleated RBC 0.000 (0.0-0.012) K/mm3 Nucleated RBC % 0.0 (0.0-0.2) % Sodium 140 (137-145) mmol/L Potassium 4.1 (3.4-5.0) mmol/L Chloride 102 (98-107) mmol/L Carbon Dioxide 27 (22-30) mmol/L Anion Gap 11 (4-12) mmol/L BUN 13 D (7-17) mg/dL Creatinine 0.74 (0.7-1.0) mg/dL Estim Creat Clear Calc 79 ml/min Estimated GFR > 60 (59 - ) Glucose 92 (65-110) mg/dL Calcium 9.6 (8.4-10.2) mg/dL Total Bilirubin 0.5 (0.2-1.3) mg/dL AST 19 (14-36) U/L ALT 16 (6-35) U/L Alkaline Phosphatase 33 L (38-126) U/L Total Protein 7.0 (6.3-8.2) g/dL Albumin 4.4 (3.5-5.1) g/dL <Vi Newell MD - Last Filed: 11/07/24 04:53> Imaging Data Attestation: I personally reviewed and interpreted this imaging study as follows: <Jessica Dillon APRN - Last Filed: 11/07/24 03:46> Radiologist's impression: Impressions Head CT 11/06/24 19:39 Impression: No acute intracranial hemorrhage or suspicious mass effect. <Jessica Dillon APRN - Last Filed: 11/07/24 03:46> Critical Care Time Critical Care Time Critical Care Time: No <Chelsie Bellamy PA-C - Last Filed: 11/08/24 19:44> Discharge Plan Discharge Clinical Impression: Adverse drug interaction with prescription medication <Chelsie Bellamy PA-C - Last Filed: 11/08/24 19:44> Patient Disposition: Home, Self-Care <KIRK [address] Last Filed: 11/08/24 19:44> Condition: Stable <KIRK [address] Last Filed: 11/08/24 19:44> Instructions: Antibiotic Form, Serotonin Syndrome (ED) <KIRK [address] Last Filed: 11/08/24 19:44> Additional Instructions: Please return to the ER with an worsening symptoms. Follow-up with primary care provider and psychiatrist as discussed. Take all regularly scheduled medications as prescribed. <KIRK [address] Last Filed: 11/08/24 19:44> Patient Language: Moroccan <KIRK [address] Last Filed: 11/08/24 19:44> Prescriptions: No Action cholecalciferol (vitamin D3) 50 mcg (2,000 unit) capsule 50 mcg PO DAILY Patient Comments: 3000 daily fexofenadine [Nuzhat Hives] 180 mg tablet 180 mg PO DAILY Ubrelvy 100 mg tablet 100 mg PO ONCE PRN (Reason: migraine headache) Qty: 14 3RF Rx Instructions: as a single dose; may repeat once in >=2 hours after first dose if needed norethindrone (contraceptive) 0.35 mg tablet 0.35 mg PO DAILY Qty: 84 3RF mupirocin 2 % ointment 1 applic topical BID Qty: 22 0RF methotrexate sodium 2.5 mg tablet 2.5 mg PO WEEKLY Rx Instructions: 8 tablets per week trazodone 50 mg tablet 25 mg PO QHS PRN (Reason: insomnia) Qty: 45 1RF Enbrel 25 mg/0.5 mL solution 25 mg subcut WEEKLY Patient Comments: as per rheum folic acid 1 mg tablet See Rx Instructions .ROUTE .COMPLEX Qty: 90 0RF Dose Instruction: TAKE 1 TABLET BY MOUTH DAILY Rx Instructions: TAKE 2 TABLET BY MOUTH DAILY hydroxychloroquine 300 mg tablet 300 mg PO DAILY Qty: 60 0RF Qulipta 60 mg tablet 60 mg PO DAILY Qty: 90 4RF oxybutynin chloride 5 mg tablet extended release 24hr See Rx Instructions .ROUTE .COMPLEX Qty: 90 0RF Dose Instruction: TAKE 1 TABLET BY MOUTH DAILY Rx Instructions: TAKE 1 TABLET BY MOUTH DAILY dextroamphetamine-amphetamine [Adderall] 10 mg tablet 10 mg PO BID Qty: 60 0RF Rx Instructions: administer doses at least 4-6 hours apart dextroamphetamine-amphetamine [Adderall] 5 mg tablet 5 mg PO DAILY Qty: 30 0RF <Chelsie Bellamy PA-C - Last Filed: 11/08/24 19:44> Follow-up/Referrals: Mitchell,Jovita Ventura MD [Primary Care Provider] - <Chelsie Bellamy PA-C - Last Filed: 11/08/24 19:44> Stand Alone Forms: Work/School Release IP <Chelsie Bellamy PA-C - Last Filed: 11/08/24 19:44> Time of Disposition: 04:52 <Chelsie Bellamy PA-C - Last Filed: 11/08/24 19:44> 04:52 <Jessica Dillon APRN - Last Filed: 11/07/24 03:46> 04:52 <Vi Newell MD - Last Filed: 11/07/24 04:53>
[2024-11-06 21:04] LABS: Basophils Absolute Auto 0.1 K/mm3 (0.0-0.1); Basophils Percent Auto 0.6 % (0.2-1.2); Eosinophils Absolute Auto 0.3 K/mm3 (0-0.3); Hematocrit 41.6 % (37.0-47.0); Hemoglobin 13.9 g/dL (12.0-15.0); Immature Granulocyte Absolute 0.03 K/mm3 (0.00-0.031); Immature Granulocyte Percent A 0.3 % (0-0.5); Lymphocytes Absolute Auto 2.74 K/mm3 (0.9-3.2); Lymphocytes Percent Auto 28.7 % (18.3-44.2); Mean Corpuscular HGB Conc 33.4 g/dl (32-36); Mean Corpuscular Hemoglobin 30.7 pg (26-34); Mean Corpuscular Volume 91.8 fl (80-100); Mean Platelet Volume 10.6 fl (7.4-10.4); Monocytes Absolute Auto 0.9 K/mm3 (0.1-0.6); Monocytes Percent Auto 9.5 % (2.6-8.5); Neutrophils Absolute Auto 5.5 K/mm3 (1.3-6.7); Neutrophils Percent Auto 57.9 % (45.5-73.1); Platelet Count Result 239 k/mm3 (150-375); Red Blood Count 4.53 M/mm3 (4.2-5.4); Red Cell Distribution Width 12.1 % (11.5-14.5); White Blood Count 9.6 K/mm3 (4.5-10.0)
[2024-11-06 21:15] LABS: Alanine Aminotransferase 16 U/L (6-35); Albumin Level 4.4 g/dL (3.5-5.1); Alkaline Phosphatase 33 U/L (38-126); Anion Gap 11 mmol/L (4-12); Aspartate Amino Transferase 19 U/L (14-36); Bilirubin,Total 0.5 mg/dL (0.2-1.3); Blood Urea Nitrogen 13 mg/dL (7-17); Calcium 9.6 mg/dL (8.4-10.2); Carbon Dioxide 27 mmol/L (22-30); Chloride 102 mmol/L (98-107); Estimated CRCL calculation 79 ml/min; Estimated Glomerular Filt Rate > 60; Glucose 92 mg/dL (65-110); Potassium 4.1 mmol/L (3.4-5.0); Sodium 140 mmol/L (137-145)
[2024-11-06 21:38] VITALS: BP 139/93; PULSE 88; TEMP 37.1; O2SAT 97
[2024-11-06 23:26] VITALS: BP 133/91; PULSE 76; RESP 18; O2SAT 100
--- NOTE | 2024-11-07 01:37 | ED.GENADULT ---
HPI - General Adult General Chief complaint: Seizure Stated complaint: seizure symptoms Time Seen by Provider: 11/06/24 18:49 Related Data Home Medications ?Medication ?Instructions ?Recorded ?Confirmed ?Last Taken ?Type cholecalciferol (vitamin D3) 50 50 mcg PO DAILY 04/15/23 09/15/24 Unknown History mcg (2,000 unit) capsule fexofenadine 180 mg tablet 180 mg PO DAILY 04/15/23 09/15/24 Unknown History (Nuzhat Lind) methotrexate sodium 2.5 mg tablet 2.5 mg PO WEEKLY 07/13/23 09/15/24 Unknown History etanercept 25 mg/0.5 mL 25 mg subcut WEEKLY 08/14/24 09/15/24 Unknown History subcutaneous solution (Enbrel) Allergies Allergy/AdvReac Type Severity Reaction Status Date / Time fluticasone (From Advair Allergy Severe Swelling Verified 11/06/24 17:28 Diskus) of Lip/Tongue/Throat salmeterol (From Advair Allergy Severe Swelling Verified 11/06/24 17:28 Diskus) of Lip/Tongue/Throat prednisone AdvReac Intermediate Dizziness Verified 11/06/24 17:28 [facility] Past Medical History Medical History Sjogren's disease Rheumatoid arthritis Ovarian cyst IBS (irritable bowel syndrome) Chronic headaches GERD with esophagitis Mixed connective tissue disease ADHD Surgical History Surgical History H/O laparoscopy lysis of adhesions H/O sinus surgery H/O colposcopy with cervical biopsy Family History Family History Father Brain cancer Alcohol abuse Heart disease Mother Alcohol abuse Hypertension Depression Asthma Sibling Asthma Depression Grandparent Alcohol abuse Asthma Diabetes mellitus Hypertension Depression Grandparent Alcohol abuse Social History Social History Social History: Smoking status: Never smoker Second hand tobacco smoke exposure: No Alcohol intake: never Substance use: never Substance use type: does not use Do You Feel Safe in your Home?: Yes Lack of Transportation: No Lack of Food: Never True Current Housing: I Have Housing Concerned About Future Housing: No Difficulty Paying Gas/Electric Bills: No Difficulty Paying for Meds: No Currently Unemployed: No Education: Master's Degree or Higher Difficulty w/ Childcare or Family Care: No Living arrangements: alone 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 I did personally evaluate patient and she states she is feeling much better. Does not appear tremulous. no ocular clonus. Feels comfortable with discharge. Has already talked with psychiatrist who is advising holding on continung the recent new medication prescribed and has plans to see later today. Stable for discharge. 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 Vital Signs Vital signs: Vital Signs Temperature 97.6 F 11/06/24 17:23 Pulse Rate 86 11/06/24 17:23 Respiratory Rate 18 11/06/24 17:23 Blood Pressure 147/100 H 11/06/24 17:23 Pulse Oximetry 100 11/06/24 17:23 Oxygen Delivery Room Air 11/06/24 17:23 Temperature 98.7 F 11/06/24 21:38 Pulse Rate 72 11/07/24 05:05 Respiratory Rate 18 11/07/24 05:05 Blood Pressure 139/89 11/07/24 05:05 Pulse Oximetry 100 11/07/24 05:05 Oxygen Delivery Room Air 11/06/24 17:23 Medical Decision Making Vital Signs Vital Signs: Vital Signs Temperature 97.6 F 11/06/24 17:23 Pulse Rate 86 11/06/24 17:23 Respiratory Rate 18 11/06/24 17:23 Blood Pressure 147/100 H 11/06/24 17:23 Pulse Oximetry 100 11/06/24 17:23 Oxygen Delivery Room Air 11/06/24 17:23 Temperature 98.7 F 11/06/24 21:38 Pulse Rate 72 11/07/24 05:05 Respiratory Rate 18 11/07/24 05:05 Blood Pressure 139/89 11/07/24 05:05 Pulse Oximetry 100 11/07/24 05:05 Oxygen Delivery Room Air 02/10/25 17:23 Lab Data 11/06/24 20:55 11/06/24 20:55 Labs: Lab Results 11/06/24 Range/Units 20:55 WBC 9.6 (4.5-10.0) K/mm3 RBC 4.53 (4.2-5.4) M/mm3 Hgb 13.9 (12.0-15.0) g/dL Hct 41.6 (37.0-47.0) % MCV 91.8 (80-100) fl MCH 30.7 (26-34) pg MCHC 33.4 (32-36) g/dl RDW 12.1 (11.5-14.5) % Plt Count 239 (150-375) k/mm3 MPV 10.6 H (7.4-10.4) fl Immature Gran % (Auto) 0.3 (0-0.5) % Neut % (Auto) 57.9 (45.5-73.1) % Lymph % (Auto) 28.7 (18.3-44.2) % Hubbard % (Auto) 9.5 H (2.6-8.5) % Eos % (Auto) 3.0 (0-4.4) % Baso % (Auto) 0.6 (0.2-1.2) % Lymph # (Auto) 2.74 (0.9-3.2) K/mm3 Hubbard # (Auto) 0.9 H (0.1-0.6) K/mm3 Eos # (Auto) 0.3 (0-0.3) K/mm3 Baso # (Auto) 0.1 (0.0-0.1) K/mm3 Abs Immat Gran (auto) 0.03 (0.00-0.031) K/mm3 Absolute Neuts (auto) 5.5 (1.3-6.7) K/mm3 Absolute Nucleated RBC 0.000 (0.0-0.012) K/mm3 Nucleated RBC % 0.0 (0.0-0.2) % Sodium 140 (137-145) mmol/L Potassium 4.1 (3.4-5.0) mmol/L Chloride 102 (98-107) mmol/L Carbon Dioxide 27 (22-30) mmol/L Anion Gap 11 (4-12) mmol/L BUN 13 D (7-17) mg/dL Creatinine 0.74 (0.7-1.0) mg/dL Estim Creat Clear Calc 79 ml/min Estimated GFR > 60 (59 - ) Glucose 92 (65-110) mg/dL Calcium 9.6 (8.4-10.2) mg/dL Total Bilirubin 0.5 (0.2-1.3) mg/dL AST 19 (14-36) U/L ALT 16 (6-35) U/L Alkaline Phosphatase 33 L (38-126) U/L Total Protein 7.0 (6.3-8.2) g/dL Albumin 4.4 (3.5-5.1) g/dL Discharge Plan Discharge Clinical Impression: Adverse drug interaction with prescription medication Patient Disposition: Home, Self-Care Condition: Stable Instructions: Antibiotic Form, Serotonin Syndrome (ED) Additional Instructions: Please return to the ER with an worsening symptoms. Follow-up with primary care provider and psychiatrist as discussed. Take all regularly scheduled medications as prescribed. Patient Language: [place] Prescriptions: No Action cholecalciferol (vitamin D3) 50 mcg (2,000 unit) capsule 50 mcg PO DAILY Patient Comments: 3000 daily fexofenadine [Nuzhat Hives] 180 mg tablet 180 mg PO DAILY Ubrelvy 100 mg tablet 100 mg PO ONCE PRN (Reason: migraine headache) Qty: 14 3RF Rx Instructions: as a single dose; may repeat once in >=2 hours after first dose if needed norethindrone (contraceptive) 0.35 mg tablet 0.35 mg PO DAILY Qty: 84 3RF mupirocin 2 % ointment 1 applic topical BID Qty: 22 0RF methotrexate sodium 2.5 mg tablet 2.5 mg PO WEEKLY Rx Instructions: 8 tablets per week trazodone 50 mg tablet 25 mg PO QHS PRN (Reason: insomnia) Qty: 45 1RF Enbrel 25 mg/0.5 mL solution 25 mg subcut WEEKLY Patient Comments: as per rheum folic acid 1 mg tablet See Rx Instructions .ROUTE .COMPLEX Qty: 90 0RF Dose Instruction: TAKE 1 TABLET BY MOUTH DAILY Rx Instructions: TAKE 2 TABLET BY MOUTH DAILY hydroxychloroquine 300 mg tablet 300 mg PO DAILY Qty: 60 0RF Qulipta 60 mg tablet 60 mg PO DAILY Qty: 90 4RF oxybutynin chloride 5 mg tablet extended release 24hr See Rx Instructions .ROUTE .COMPLEX Qty: 90 0RF Dose Instruction: TAKE 1 TABLET BY MOUTH DAILY Rx Instructions: TAKE 1 TABLET BY MOUTH DAILY dextroamphetamine-amphetamine [Adderall] 10 mg tablet 10 mg PO BID Qty: 60 0RF Rx Instructions: administer doses at least 4-6 hours apart dextroamphetamine-amphetamine [Adderall] 5 mg tablet 5 mg PO DAILY Qty: 30 0RF Follow-up/Referrals: Mitchell,Jovita Ventura MD [Primary Care Provider] - Stand Alone Forms: Work/School Release IP Time of Disposition: 04:52
--- OUTSIDE RECORDS SUMMARY | 2024-11-07 03:06 | XMS_ITS | Encounter Summary ---
Author Organization [facility] Address [address] [place] [address] Care Team Providers Care Centerless Grinder Tender Name Role Phone Jovita Medrano MD Primary Care Provider +1- [phone] Encounter Details Date Type Department Care Team (Latest Contact Info) Description 07/14/2024 MyCMayomit Message Enc [facility] Medical Group Multispecialty Care - [address], [facility] [address] [place] [address] Barbara Arreguin MD [address] [place] [address], [facility] [address] [place] [address] Protein Issues Worsening Social History Tobacco Use [...] Total Score: 0 09/17/20 22 10:23 AM CAN CLEANER documented as of this encounter Care Teams Centerless Grinder Tender Relationship Specialty Start Date End Date Jovita Medrano MD [address] [facility] [address] [place] [address] PCP - General FAMILY PRACTICE 07/01/22 documented as of this encounter
--- OUTSIDE RECORDS SUMMARY | 2024-11-07 03:06 | XMS_ITS | Encounter Summary ---
Author Organization [facility] Address [address] [place] [address] Care Team Providers Care Sales Management Intern Name Role Phone Jovita Medrano MD Primary Care Provider +1- [phone] Encounter Details Date Type Department Care Team (Latest Contact Info) Description 06/18/2023 MyChart Message Enc [facility] Medical Group Multispecialty Care - [address], [facility] [address] [place] [address] Barbara Arreguin MD [address] [facility], [facility] [address] [place] [address] Labs prior to meeting? Social History Tobacco [...] Total Score: 0 09/17/20 22 10:23 AM BUSINESS ENGLISH INSTRUCTOR documented as of this encounter Care Teams Sales Management Intern Relationship Specialty Start Date End Date Rostovtseva, Jovita, MD [address] [facility] [address] [place] [address] PCP - General FAMILY PRACTICE 07/01/22 documented as of this encounter
--- OUTSIDE RECORDS SUMMARY | 2024-11-07 03:06 | XMS_ITS | Clinical Summary ---
Author Organization [facility] Address [facility]ly [facility], [facility] [place] [address] Care Team Providers Care Structural Design Engineer Name Role Phone Jovita Medrano MD Primary Care Provider +1- [phone] Allergies Active Allergy Reactions Criticality Noted Date [...] Date Proteinuria, unspecified type 09/17/2022 Rheumatoid arteritis ([facility]) 2 Sjogren's syndrome, with uns pecified organ involvement ([facility]) 09/17/2022 Immunizations Name Administration Dates Next Due [...] COVID-19 Vaccine ( season) 2024 PHQ-2 (Physician [place]) 06/21/2024 06/21/2023 Influenza Adult (#1) 2024 PHQ-2 (Physician [place]) 09/27/2024 06/21/2023 DTaP, Tdap and Td Vaccines [...] complete this topic Insurance [facility] Care Teams Structural Design Engineer Relationship Specialty Start Date End Date Jovita Medrano MD [address] [facility] [address] [place] [address] PCP - General FAMILY PRACTICE 07/01/22
[2024-11-07 03:38] VITALS: PULSE 70
[2024-11-07] MEDS: SODIUM CHLORIDE 0.9% IV 1,000 ML 999 ML IV CONT (03:41)
[2024-11-07] MEDS: LORazepam INJ (*CRX) 2 MG/ML VIAL 0.5 MG IV PUSH (03:41)
[2024-11-07 03:42] VITALS: BP 142/95; PULSE 70; RESP 18; O2SAT 100
[2024-11-07 05:05] VITALS: BP 139/89; PULSE 72; RESP 18; O2SAT 100
== END 2024-11-07 05:06 | disposition home or self-care (01) ==
PROVIDERS: Physician Assistant; Emergency Provider Student in an Organized Health Care Education/Training Program; PCP Family Medicine
DX: R56.9 Unspecified convulsions (principal); T50.905A Adverse effect of unspecified drugs, medicaments and biological substances, initial encounter; M06.9 Rheumatoid arthritis, unspecified; K21.9 Gastro-esophageal reflux disease without esophagitis; F90.9 Attention-deficit hyperactivity disorder, unspecified type
CPT/HCPCS: 36415; 70450; 80053; 85025; 96361; 96374; 99284; J2060; J7030

== ENCOUNTER 2025-01-04 19:10 | Emergency (ER) | payer OTHER, SELFPAY ==
--- NOTE | 2025-01-04 19:12 | ED_ITS ---
HPI - URI/Sore Throat General Chief Complaint: Upper Respiratory Infection Stated Complaint: Cough Time Seen by Provider: 01/04/25 19:12 Source: patient Mode of arrival: ambulatory Limitations: no limitations History of Present Illness HPI Narrative: Patient is a 34-year-old female who presents with 1 and half weeks of congestion cough. Patient states it started out all sinus related and started having improvements for 2 days. Then symptoms worsened and developed productive cough. Denies any fever, chills, nausea, vomiting, diarrhea. Has been using Mucinex. Has not been taking methotrexate due to illness. Related Data Home Medications ?Medication ?Instructions ?Recorded ?Confirmed ?Last Taken ?Type cholecalciferol (vitamin D3) 50 50 mcg PO DAILY 04/15/23 12/26/24 Unknown History mcg (2,000 unit) capsule fexofenadine 180 mg tablet 180 mg PO DAILY 04/15/23 12/26/24 Unknown History (Nuzhat Hives) methotrexate sodium 2.5 mg tablet 2.5 mg PO WEEKLY 07/13/23 12/26/24 Unknown History etanercept 25 mg/0.5 mL 25 mg subcut WEEKLY 08/14/24 12/26/24 Unknown History subcutaneous solution (Enbrel) lisdexamfetamine 10 mg capsule mg 01/04/25 Unknown History Allergies Allergy/AdvReac Type Severity Reaction Status Date / Time fluticasone (From Advair Allergy Severe Swelling Verified 01/04/25 19:20 Diskus) of Lip/Tongue/Throat salmeterol (From Advair Allergy Severe Swelling Verified 01/04/25 19:20 Diskus) of Lip/Tongue/Throat prednisone AdvReac Intermediate Dizziness Verified 01/04/25 19:20 Review of Systems Review of Systems: All systems reviewed & are unremarkable except as noted in HPI and below Constitutional: Constitutional: Denies chills, Denies fatigue, Denies fever(s), Denies headache(s), Denies malaise and Denies weakness Eyes: Eyes: Denies blurry vision, Denies itchy eyes and Denies loss of vision ENT: Denies otalgia, Denies headache(s), Reports nasal congestion, Denies sinus pain and Denies sore throat Cardiovascular: Cardiovascular: Denies chest pain, Denies irregular heart rhythm and Denies dyspnea Respiratory: Respiratory: Reports cough and Denies dyspnea Gastrointestinal: Gastrointestinal: Denies abdominal pain, Denies diarrhea, Denies nausea and Denies vomiting Musculoskeletal: Musculoskeletal: Denies back pain, Denies myalgias and Denies arthralgias Integumentary/Breasts: Skin/Breast: Denies pruritus and Denies rash Neurologic: Denies headache(s), Denies loss of vision and Denies weakness Psychiatric: Psychiatric: Reports no additional psychiatric complaints Endocrine: Endocrine: Denies fatigue Allergic/Immunologic: Allergic/Immunologic: Denies itchy eyes PMFSH Past Medical History Medical History Sjogren's disease Rheumatoid arthritis Ovarian cyst IBS (irritable bowel syndrome) Chronic headaches GERD with esophagitis Mixed connective tissue disease ADHD Surgical History Surgical History H/O laparoscopy lysis of adhesions H/O sinus surgery H/O colposcopy with cervical biopsy Family History Family History Father Brain cancer Alcohol abuse Heart disease Mother Alcohol abuse Hypertension Depression Asthma Sibling Asthma Depression Grandparent Alcohol abuse Asthma Diabetes mellitus Hypertension Depression Grandparent Alcohol abuse Social History Social History Social History: Smoking status: Never smoker Second hand tobacco smoke exposure: No Alcohol intake: never Substance use: never Substance use type: does not use Do You Feel Safe in your Home?: Yes Lack of Transportation: No Lack of Food: Never True Current Housing: I Have Housing Concerned About Future Housing: No Difficulty Paying Gas/Electric Bills: No Difficulty Paying for Meds: No Currently Unemployed: No Education: Master's Degree or Higher Difficulty w/ Childcare or Family Care: No Living arrangements: alone 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 There is no relevant family history pertinent to the presenting complaint. Exam Const: General: cooperative, healthy appearing, comfortable, no acute distress and well nourished Nutritional Appearance: well nourished Orientation/consciousness: patient oriented x3 Limitations: no limitations HENMT: Head: normal to inspection, normocephalic and atraumatic Ears: hearing grossly normal bilaterally, external ears normal, TM's normal bilaterally, EAC's normal and no periauricular adenopathy Face/Nose/Sinus: Normal external nose present, Abnormal mucous membranes and turbinates present erythematous bilateral and diffuse, normal facial exam, sinuses nontender and face symmetric Face and sinus: normal facial exam, sinuses nontender and face symmetric Mouth: Yes Normal oral and palatal mucosa present, Yes lip normal, Yes tongue normal, Yes Normal salivary glands and ducts present, Yes oropharynx normal and Yes moist mucous membranes Teeth and gingiva: dentition normal Throat: posterior oropharynx normal, tonsils normal and uvula midline Eyes: General: appearance normal, both eyes and all related structures Alignment and Position: alignment normal and position normal Periorbital: periorbital findings normal Eyelids: eyelids normal Pupils: Equal, round and reactive pupils present Neck: Neck: normal visual inspection, full ROM, no lymphadenopathy and supple Chest: Chest palpation & inspection: normal inspection of the chest and normal palpation of entire chest wall Resp: Effort & Inspection: normal respiratory effort, able to speak in complete sentences and Actively coughing productive Auscultation: clear to auscultation bilaterally, no crackles, no rales, no rhonchi and no wheezes Cardio: Rate: regular rate Rhythm: regular rhythm Heart sounds: S1 normal heart sound present and S2 normal heart sound present GI: Inspection: normal to inspection Skin: General skin exam: normal color and no rashes or lesions noted Neuro: General: patient oriented x3 and moves all extremities Cranial nerves: Yes Equal, round and reactive pupils present Speech: normal speech Gait exam (Neuro): Normal gait present Extrem: General: normal to inspection, full ROM and no edema Psych: Appearance: grossly normal and well kempt Mental Status: mental status grossly normal Speech and movement: Normal speech and movement present Affect: normal affect Attitude: cooperative Thought process: Normal thought process present Course Course Emergency Course: Discharge instructions reviewed with patient, as well as provided in writing per nursing staff. The instructions also include specific and strict return/GO TO THE ER as well as f/u information. All questions have been answered, and the patient deny any further questions with discharge and discharge plan. Portions of this record may have been created with voice recognition software Level of Care: Express Care Visit Vital Signs Vital signs: Reviewed MDM - URI/Sore Throat MDM Narrative Medical decision making narrative: Based on past medical history and length of illness, patient will be treated with antibiotics, steroids, Tessalon Perles and albuterol inhaler. Patient states she has had Augmentin, Medrol Dosepak, Tessalon Perles and albuterol in the past and that has really helped her. Patient states she has stopped taking methotrexate since she has been sick. Pt well hydrated appearing, in no respiratory distress, hemodynamically stable. Recommend supportive care. The patient is stable at time of discharge the clinical impression was discussed and the patient was given the opportunity to ask questions, which were addressed as completely as possible given the information available at present. Anticipatory guidance and return to care precautions were discussed and the importance of primary care follow-up was stressed and encouraged. The patient voiced understanding of the plan, indications to return, and the need for follow-up. Exam findings show no acute concerns or changes Patient is appropriate for outpatient treatment and follow-up. Differential diagnosis considered: Larry virus, strep pharyngitis, allergic rhinitis, upper respiratory tract infection, sinusitis, rhinosinusitis, nasopharyngitis. viral pharyngitis, otitis media, otitis externa, otitis effusion, foreign body, cerumen impaction, viral syndrome, and influenza.? Medical Records Attestation: I reviewed the patient's medical records. Discharge Plan Discharge Clinical Impression: Acute purulent bronchitis Patient Disposition: Home Condition: Stable Instructions: Acute Bronchitis (ED) Additional Instructions: Take antibiotic as prescribed. Take steroids per package instructions. Use Tessalon Perles as needed for cough. Use inhaler with spacer as needed. Other symptomatic treatments include: -Alternate Tylenol and Motrin per package directions for fever or pain: Tylenol 650-1000mg by mouth every 4-6 hours. Do not exceed 4000mg in 24 hours. Advil (Ibuprofen) 600 mg by mouth every 6 hours. Do not exceed 2400mg in 24 hours. 8 AM: Tylenol 11 AM: Ibuprofen 2 PM: Tylenol 5 PM: Ibuprofen 8 PM: Tylenol 11 PM: Ibuprofen 2 AM: Tylenol 5 AM: Ibuprofen -Antihistamine medication such as Benadryl at night and Zyrtec/Claritin/Nuzhat during the day can help improve symptoms. -Use Flonase twice a day for 5 days then daily to help reduce the inflammation and dry up your sinuses. -You can also use Sudafed or Mucinex. Be sure to drink plenty of water with these medications at least 8 ounces with every dose and it is important to drink 8 to 10 glasses of water per day. Water is a natural decongestant -Eat and drink things that are easy to swallow, like tea or soup, or popsicles. -Oral rinses such as: Salt water gargles and/or may use topical anesthetic (eg. Chloraseptic spray) or lozenges to relieve dryness or throat pain). -Frequent hand washing or hand plate hanger is one of the best ways to prevent spread of infection. -Using a vaporizer or humidifier at night will also help thin secretions and help with coughing up phlegm. Call your Primary Care Doctor and make a follow-up appointment in 3 days. If your cough worsens, you develop a fever greater than 103, you develop shaking chills, a fast heartbeat, trouble breathing and/or feel you are are breathing much faster than usual, call your Primary Care Doctor or go to the ER. Patient Language: Citizen Of [place] Prescriptions: New benzonatate 100 mg capsule 100 mg PO BID PRN (Reason: cough) Qty: 14 0RF methylprednisolone [Medrol (Lester)] 4 mg tablets,dose pack See Rx Instructions .ROUTE .COMPLEX Qty: 21 0RF Rx Instructions: orally per package directions albuterol sulfate 90 mcg/actuation HFA aerosol inhaler 2 puff inhalation QID PRN (Reason: shortness of breath or wheezing) Qty: 6.7 0RF amoxicillin-pot clavulanate 875-125 mg tablet 1 tablet PO Q12H 7 Days Qty: 14 0RF (DME) Aerochamber MV Spacer See Rx Instructions .Route Qty: 1 0RF Rx Instructions: As directed No Action lisdexamfetamine 10 mg capsule cholecalciferol (vitamin D3) 50 mcg (2,000 unit) capsule 50 mcg PO DAILY Patient Comments: 3000 daily fexofenadine [Nuzhat Hives] 180 mg tablet 180 mg PO DAILY Ubrelvy 100 mg tablet 100 mg PO ONCE PRN (Reason: migraine headache) Qty: 14 3RF Rx Instructions: as a single dose; may repeat once in >=2 hours after first dose if needed mupirocin 2 % ointment 1 applic topical BID Qty: 22 0RF methotrexate sodium 2.5 mg tablet 2.5 mg PO WEEKLY Rx Instructions: 8 tablets per week spironolactone 50 mg tablet 50 mg PO DAILY Qty: 90 3RF bupropion HCl [Wellbutrin SR] 100 mg tablet sustained-release 12 hr 100 mg PO DAILY Qty: 30 0RF azelastine 137 mcg (0.1 %) spray,non-aerosol See Rx Instructions .ROUTE .COMPLEX Qty: 30 5RF Dose Instruction: SPRAY ONCE IN EACH NOSTRIL EVERY 12 HOURS DIRECTED Rx Instructions: SPRAY ONCE IN EACH NOSTRIL EVERY 12 HOURS DIRECTED Enbrel 25 mg/0.5 mL solution 25 mg subcut WEEKLY Patient Comments: as per rheum folic acid 1 mg tablet See Rx Instructions .ROUTE .COMPLEX Qty: 90 0RF Dose Instruction: TAKE 1 TABLET BY MOUTH DAILY Rx Instructions: TAKE 2 TABLET BY MOUTH DAILY hydroxychloroquine 300 mg tablet 300 mg PO DAILY Qty: 60 0RF Qulipta 60 mg tablet 60 mg PO DAILY Qty: 90 4RF oxybutynin chloride 5 mg tablet extended release 24hr See Rx Instructions .ROUTE .COMPLEX Qty: 90 0RF Dose Instruction: TAKE 1 TABLET BY MOUTH DAILY Rx Instructions: TAKE 1 TABLET BY MOUTH DAILY norethindrone (contraceptive) 0.35 mg tablet 0.35 mg PO DAILY Qty: 84 0RF Follow-up/Referrals: Tha Gurrola MD [Physician] - 3 Days Time of Disposition: 19:28
--- OUTSIDE RECORDS SUMMARY | 2025-01-04 19:12 | XMS_ITS | Clinical Summary ---
Author Organization [facility] Address [facility] [place] [address] Care Team Providers Care Board Certified Family Physician Name Role Phone Jovita Medrano MD Primary Care Provider +1- [phone] Allergies Active Allergy Reactions Criticality Noted Date [...] Date Proteinuria, unspecified type 09/17/2022 Rheumatoid arteritis ([facility]) 2 Sjogren's syndrome, with uns pecified organ involvement ([facility]) 09/17/2022 Immunizations Name Administration Dates Next Due [...] COVID-19 Vaccine ( season) 2024 PHQ-2 (Physician [place]) 09/27/2024 06/21/2023 DTaP, Tdap and Td Vaccines [...] patient's age to complete this topic Insurance [facility] Care Teams Board Certified Family Physician Relationship Specialty Start Date End Date Jovita Medrano MD [address] [facility] [address] [place] [address] PCP - General FAMILY PRACTICE 07/01/22
--- OUTSIDE RECORDS SUMMARY | 2025-01-04 19:12 | XMS_ITS | Encounter Summary ---
Author Organization [facility] Address [address] [place] [address] Care Team Providers Care Washer Operator Name Role Phone Jovita Medrano MD Primary Care Provider +1- [phone] Encounter Details Date Type Department Care Team (Latest Contact Info) Description 07/14/2024 MyCGearworkst Message Enc [facility] Medical Group Multispecialty Care - [address], [facility] [address] [place] [address] Barbara Arreguin MD [address] [place] [address], [facility] [address] [place] [address] Protein Issues Worsening Social History Tobacco Use [...] Total Score: 0 09/17/20 22 10:23 AM LIEUTENANT FIRE FIGHTER documented as of this encounter Care Teams Washer Operator Relationship Specialty Start Date End Date Jovita Medrano MD [address] [facility] [address] [place] [address] PCP - General FAMILY PRACTICE 07/01/22 documented as of this encounter
--- OUTSIDE RECORDS SUMMARY | 2025-01-04 19:12 | XMS_ITS | Encounter Summary ---
Author Organization [facility] Address [address] [place] [address] Care Team Providers Care Assistant Manager Name Role Phone Jovita Medrano MD Primary Care Provider +1- [phone] Encounter Details Date Type Department Care Team (Latest Contact Info) Description 06/18/2023 MyChart Message Enc [facility] Medical Group Multispecialty Care - [address], [facility] [address] [place] [address] Barbara Arreguin MD [address] [facility], [facility] [address] [place] [address] Labs prior to meeting? Social History Tobacco [...] Total Score: 0 09/17/20 22 10:23 AM BERRY GROWER documented as of this encounter Care Teams Assistant Manager Relationship Specialty Start Date End Date Rostovtseva, Jovita, MD [address] [facility] [address] [place] [address] PCP - General FAMILY PRACTICE 07/01/22 documented as of this encounter
--- OUTSIDE RECORDS SUMMARY | 2025-01-04 19:12 | XMS_ITS | Continuity of Care Document ---
Author Organization [facility] Address [address] [place] [address] Phone Care Team Providers Care Distributor Cleaner Name Role Phone Federico WINTERS, Arun Unavailable [...] Provider Providers Copied on Encounter [facility], [address], [place], [place], [id number] , [place] tel: [phone] [facility] No Information 1 Federico Dias. [facility], [id number], [place]. tel:[phone] Offic[facility]outpt [facility] [address], [place], [place], [id number] , [place] tel: [phone] [facility] Low grade squamous intraepithelial lesion on cytologic smear of cervix (LGSIL)Unprotecte d sexual intercourseBirth control counseling 0 Darnell Beatty. [address] [place], [place], [id number], [place]. tel:[phone] Referring Provider: Arun Caballero, [address] [facility] [address], [place], [address] . tel:[phone] Offic/outpt E&m Estab Mod-hi 2 [facility], [address], [place], [place], [id number] , [place] tel:[phone] [facility] RLQ abdominal pain Mar-0 6-202 0 Federico Dias. [address], [place], [place], [id number], [place]. tel:[phone] Referring Provider: Arun Caballero, [address], [place], [address] . tel:[phone] Offic/outpt E&m Estab Mod-hi 2 [facility], [address], [place], [place], [id number] , [place] tel: [phone] [facility] Left ovarian cystAcute diarrhea Mar-0 4-202 0 Eileensandrarj Jaci. [address], [place], [place], [id number], [place]. tel:[phone] Referring Provider: Arun Caballero, [address], [place], [address] . 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 [address], [place], [place], [id number], [place]. tel:[phone] Referring Provider: Arun Caballero, [address], [place], [address] . tel:[phone] [facility], [address], [place], [place], [id number] , [place] tel: [phone] [facility] Recurrent loss Jun- 6-201 9 Federico Dias. [address], [place], [place], [id number], [place]. tel:[phone] [facility], [address], [place], [place], [address] , [place] tel: [phone] [facility] Recurrent loss Jun- 6-201 9 Federico Dias. [address], [place], [place], [id number], [place]. tel:[phone] Referring Provider: Arun Caballero, [address], [place], [address] . tel:[phone] Preven E&m Estab Pt; 18-39 Yr [facility], [address], [place], [place], [id number] , [place] tel:[phone] [facility] Encntr for cement side laster exam (general) (routine) w/o abn findingsEncounter for screening for malignant neoplasm of cervixCIN I (cervical intraepithelial neoplasia I) 9 Federico Dias. [address], [address], [place], [place], [address], [place]. tel:[phone] Referring Provider: Arun Caballero, [address], [place], [address] . tel:[phone] Offic/outpt E&m Estab Low-mod [facility], [address], [place], [place], [id number] , [place] tel: [phone] [facility] LGSIL on Pap smear of cervixCervical high risk human papillomavirus (HPV) DNA test positive 9 Duerinckx Marcela. [address], [place], [place], [id number], [place]. tel:[phone] Referring Provider: Arun Caballero, [address], [place], [address] . tel:[phone] [facility], [address], [place], [place], [id number] , [place] tel: [phone] [facility] LGSIL on Pap smear of cervix 8 Federico Dias. [address], [place], [place], [id number], [place]. tel:[phone] Referring Provider: Arun Caballero, [address], [place], [address] . tel:[phone] Preven E&m Estab Pt; 18-39 Yr [facility], [address], [place], [place], [id number] , [place] tel: [phone] [facility] Encntr for cement side laster exam (general) (routine) w/o abn findingsEncounter for screening for malignant neoplasm of cervix 8 Federico Dias. [address], [place], [place], [id number], [place]. tel:[phone] Referring Provider: Arun Caballero, [address], [place], [address] . tel:[phone] Offic/outpt E&m [facility] 2 [facility], [address], [place], [place], [id number] , [place] tel: [phone] [facility] Atrophic endometriumDUB (dysfunctional uterine bleeding)Pelvic pain 8 Federico Dias. [address], [place], [place], [address], [place]. tel:[phone] Referring Provider: Arun Caballero, [address], [place], [address] . tel:[phone] Offic/outpt E&m [facility] 4 [facility], [address], [place], [place], [id number] , [place] tel: [phone] [facility] DUB (dysfunctional uterine bleeding)Pelvic painFatigue, unspecified type 8 Duerinckx Marcela. [address], [place], [place], [id number], [place]. tel:[phone] Referring Provider: Arun Caballero, [address], [place], [address] . tel:[phone] Offic/outpt E&m [facility], [address], [place], [place], [id number] , [place] tel: [phone] [facility] Pelvic pain 7 Duerinckx Marcela. [address], [place], [place], [id number], . tel:[phone] Referring Provider: Arun Caballero, [address], [place], [address] . tel:[phone] Family History Family Member Type Diagnosis Age At Onset Mother Problem (finding) Ovarian Cancer Mother Problem (finding) Hypertension PAT Aunt Problem (finding) Thyroid Disease MAT Aunt Problem (finding) Breast Cancer MATGrandmother Problem (finding) Ovarian Cancer MATGrandmother Problem (finding) Diabetes Payers Payer name Insurance type Covered republican ID Authoriza tion(s) [facility] HMO / Choice Plus CI [id number] Social History Type Description Quantity Date Captured [...] Referral Referred To: J Carlos WINTERS, Misael [address] [place], [place], [phone] Ordered: Referrals: Gastroenterology - Misael Whitman MD [...]
--- OUTSIDE RECORDS SUMMARY | 2025-01-04 19:16 | XMS_ITS | Continuity of Care Document ---
Author Organization [facility] Address [address] [place] [address] Phone Care Team Providers Care Secretary Board Of Commissioners Name Role Phone Federico WINTERS, Arun Unavailable [...] Diagnoses Date Provider Providers Copied on Encounter [facility], [address], [place], [place], [address] , [place] tel: [phone] [facility] No Information 1 Federico Dias. [facility], [id number], [place]. tel:[phone] [facility]pt [facility], [address], [place], [place], [address] , [place] tel: [phone] [facility] Low grade squamous intraepithelial lesion on cytologic smear of cervix (LGSIL)Unprotecte d sexual intercourseBirth control counseling 0 Darnell Beatty. [address] [place], [address], [place]. tel:[phone] Referring Provider: Arun Caballero, [address] [facility] [address], [place], [address] . tel:[phone] Offic/outpt E&m Estab Mod-hi 2 [facility], [address], [place], [place], [address] , [place] tel:[phone] [facility] RLQ abdominal pain Mar-0 6-202 0 Federico Dias. [address], [place], [place], [address], [place]. tel:[phone] Referring Provider: Arun Caballero, [address], [place], [address] . tel:[phone] Offic/outpt E&m Estab Mod-hi 2 [facility], [address], [place], [place], [address] , [place] tel: [phone] [facility] Left ovarian cystAcute diarrhea Mar-0 4-202 0 Eileensandrarj Jaci. [address], [place], [place], [address], [place]. tel:[phone] Referring Provider: Arun Caballero, [address], [place], [address] . tel:[phone] [facility], [address], [place], [place], [address] , [place] tel: [phone] [facility] Recurrent loss Dec-0 3-201 9 Federico Dias. [address], [place], [place], [address], [place]. tel:[phone] Referring Provider: Arun Caballero, [address], [place], [address] . tel:[phone] [facility], [address], [place], [place], [address] , [place] tel: [phone] [facility] Recurrent loss Jun- 6-201 9 Federico Dias. [address], [place], [place], [address], [place]. tel:[phone] [facility], [address], [place], [place], [address] , [place] tel: [phone] [facility] Recurrent loss Jun- 6-201 9 Federico Dias. [address], [place], [place], [address], [place]. tel:[phone] Referring Provider: Arun Caballero, [address], [place], [address] . tel:[phone] Preven E&m Estab Pt; 17-39 Yr [facility], [address], [place], [place], [address] , [place] tel:[phone] [facility] Encntr for crystal mounter exam (general) (routine) w/o abn findingsEncounter for screening for malignant neoplasm of cervixCIN I (cervical intraepithelial neoplasia I) 9 Federico Dias. [address], [place], [place], [address], [place]. tel:[phone] Referring Provider: Arun Caballero, [address], [place], [address] . tel:[phone] Offic/outpt E&m Estab Low-mod [facility], [address], [place], [place], [address] , [place] tel: [phone] [facility] LGSIL on Pap smear of cervixCervical high risk human papillomavirus (HPV) DNA test positive 9 Duerinckx Marcela. [address], [place], [place], [address], [place]. tel:[phone] Referring Provider: Arun Caballero, [address], [place], [address] . tel:[phone] [facility], [address], [place], [place], [address] , [place] tel: [phone] [facility] LGSIL on Pap smear of cervix 8 Federico Dias. [address], [place], [place], [address], [place]. tel:[phone] Referring Provider: Arun Caballero, [address], [place], [address] . tel:[phone] Preven E&m Estab Pt; 18-39 Yr [facility], [address], [place], [place], [address] , [place] tel: [phone] [facility] Encntr for crystal mounter exam (general) (routine) w/o abn findingsEncounter for screening for malignant neoplasm of cervix 8 Federico Dias. [address], [place], [place], [address], [place]. tel:[phone] Referring Provider: Arun Caballero, [address], [place], [address] . tel:[phone] Offic/outpt E&m [facility] 2 [facility], [address], [place], [place], [address] , [place] tel: [phone] [facility] Atrophic endometriumDUB (dysfunctional uterine bleeding)Pelvic pain 8 Federico Dias. [address], [place], [place], [address], [place]. tel:[phone] Referring Provider: Arun Caballero, [address], [place], [address] . tel:[phone] Offic/outpt E&m [facility] 4 [facility], [address], [place], [place], [address] , [place] tel: [phone] [facility] DUB (dysfunctional uterine bleeding)Pelvic painFatigue, unspecified type 8 Duerinckx Marcela. [address], [place], [place], [address], [place]. tel:[phone] Referring Provider: Arun Caballero, [address], [place], [address] . tel:[phone] Offic/outpt E&m [facility], [address], [place], [place], [address] , [place] tel: [phone] [facility] Pelvic pain 7 Duerinckx Marcela. [address], [place], [place], [address], . tel:[phone] Referring Provider: Arun Caballero, [address], [place], [address] . tel:[phone] Family History Family Member Type Diagnosis Age At Onset Mother Problem (finding) Ovarian Cancer Mother Problem (finding) Hypertension PAT Aunt Problem (finding) Thyroid Disease MAT Aunt Problem (finding) Breast Cancer MATGrandmother Problem (finding) Ovarian Cancer MATGrandmother Problem (finding) Diabetes Payers Payer name Insurance type Covered libertarian ID Authoriza tion(s) [facility] HMO / Choice Plus CI [id number] Social History Type Description Quantity Date Captured [...] Referral Referred To: J Carlos WINTERS, Misael [address] [place], [place], [phone] Ordered: Referrals: Gastroenterology - Misael Whitman MD [...]
[2025-01-04 19:19] VITALS: BP 134/88; PULSE 71; RESP 18; TEMP 36.9; O2SAT 100
== END 2025-01-04 19:32 | disposition home or self-care (01) ==
PROVIDERS: Emergency Provider Nurse Practitioner Family; PCP Surgery
DX: J20.9 Acute bronchitis, unspecified (principal); M35.00 Sjogren syndrome, unspecified; M06.9 Rheumatoid arthritis, unspecified; K21.00 Gastro-esophageal reflux disease with esophagitis, without bleeding; M35.1 Other overlap syndromes
CPT/HCPCS: 99213; G0463

== ENCOUNTER 2025-02-08 14:29 | Outpatient (CLI) | payer OTHER, SELFPAY ==
--- NOTE | ~2025-02-08 | XR_ITS ---
EXAMINATION: XR chest 2V 02/08/2025 14:47 INDICATION: Dyspnea PROCEDURE: 2 view chest COMPARISON: 05/26/2024 FINDINGS: The lungs are clear. The cardiomediastinal silhouette is within normal limits. There are no pleural effusions. There is no pneumothorax suspected. IMPRESSION: 1: NO ACUTE CARDIOPULMONARY DISEASE. Reviewed, dictated and finalized at location A.
== END 2025-02-08 14:30 | disposition home or self-care (01) ==
PROVIDERS: PCP Family Medicine; Visit Provider Physician Assistant
DX: R06.00 Dyspnea, unspecified (principal)
CPT/HCPCS: 71046

== ENCOUNTER 2025-02-18 20:11 | Emergency (ER) | payer OTHER, SELFPAY ==
--- OUTSIDE RECORDS SUMMARY | 2025-02-18 20:13 | XMS_ITS | Continuity of Care Document ---
Author Organization [facility] Address [address] [place] [address] Phone Care Team Providers Care Recooperer Name Role Phone Federico WINTERS, Arun Unavailable [...] oral route once 150 MG - Active omeprazole 20 mg capsule,delayed [...] Color Comp 20 Offic/outpt E&m Estab Mod-hi 2 20 Echo Transvaginal Offic/outpt E&m Estab Mod-hi [...] Diagnoses Date Provider Providers Copied on Encounter [facility], [address], [place], [place], [address] , [place] tel: [phone] [facility] No Information 1 Federico Dias. [facility], [address], [place]. tel:[phone] [facility]pt [facility], [address], [place], [place], [address] , [place] tel: [phone] [facility] Low grade squamous intraepithelial lesion on cytologic smear of cervix (LGSIL)Unprotecte d sexual intercourseBirth control counseling 0 Darnell Beatty. [address] [place], [place], [address], [place]. tel:[phone] Referring Provider: Arun Caballero, [address] [facility] [address], [place], [address] . tel:[phone] Offic/outpt E&m Estab Mod-hi 2 [facility], [address], [place], [place], [address] , [place] tel:[phone] [facility] RLQ abdominal pain Mar-0 6-202 0 Federico Dias. [address], [place], [place], [address], [place]. tel:[phone] Referring Provider: Arun Caballero, [address], [place], [address] . tel:[phone] Offic/outpt E&m Estab Mod-hi 2 [facility], [address], [place], [place], [address] , [place] tel: [phone] [facility] Left ovarian cystAcute diarrhea Mar-0 4-202 0 Eileensandrarj Jaci. [address], [place], [place], [address], [place]. tel:[phone] Referring Provider: Arun Caballero, [address], [place], [address] . tel:[phone] [facility], [address], [place], [place], [address] , [place] tel: [phone] [facility] Recurrent loss Dec-0 3-201 9 Federico Dias. [address], [place], [place], [address], [place]. tel:[phone] Referring Provider: Arun Caballero, [address], [place], [address] . tel:[phone] [facility], [address], [place], [place], [address] , [place] tel: [phone] [facility] Recurrent loss Jun- 6-201 9 Federico Dias. [address], [place], [place], [address], [place]. tel:[phone] [facility], [address], [place], [place], [address] , [place] tel: [phone] [facility] Recurrent loss Jun- 6-201 9 Federico Dias. [address], [place], [place], [address], [place]. tel:[phone] Referring Provider: Arun Caballero, [address], [place], [address] . tel:[phone] Preven E&m Estab Pt; [age] Yr [facility], [address], [place], [place], [address] , [place] tel:[phone] [facility] Encntr for cut off machine unloader exam (general) (routine) w/o abn findingsEncounter for screening for malignant neoplasm of cervixCIN I (cervical intraepithelial neoplasia I) 9 Federico Dias. [address], [place], [place], [address], [place]. tel:[phone] Referring Provider: Arun Caballero, [address], [place], [address] . tel:[phone] Offic/outpt E&m Estab Low-mod [facility], [address], [place], [place], [address] , [place] tel: [phone] [facility] LGSIL on Pap smear of cervixCervical high risk human papillomavirus (HPV) DNA test positive 9 Duerinckx Marcela. [address], [place], [place], [address], [place]. tel:[phone] Referring Provider: Arun Caballero, [address], [place], [address] . tel:[phone] [facility], [address], [place], [place], [address] , [place] tel: [phone] [facility] LGSIL on Pap smear of cervix 8 Federico Dias. [address], [place], [place], [address], [place]. tel:[phone] Referring Provider: Arun Caballero, [address], [place], [address] . tel:[phone] Preven E&m Estab Pt; 18-39 Yr [facility], [address], [place], [place], [address] , [place] tel: [phone] [facility] Encntr for cut off machine unloader exam (general) (routine) w/o abn findingsEncounter for screening for malignant neoplasm of cervix 8 Federico Dias. [address], [place], [place], [address], [place]. tel:[phone] Referring Provider: Arun Caballero, [address], [place], [address] . tel:[phone] Offic/outpt E&m [facility] 2 [facility], [address], [place], [place], [address] , [place] tel: [phone] [facility] Atrophic endometriumDUB (dysfunctional uterine bleeding)Pelvic pain 8 Federico Dias. [address], [place], [place], [address], [place]. tel:[phone] Referring Provider: Arun Caballero, [address], [place], [address] . tel:[phone] Offic/outpt E&m [facility] 4 [facility], [address], [place], [address] , [place] tel: [phone] [facility] DUB (dysfunctional uterine bleeding)Pelvic painFatigue, unspecified type 8 Duerinckx Marcela. [address], [place], [place], [address], [place]. tel:[phone] Referring Provider: Arun Caballero, [address], [place], [address] . tel:[phone] Offic/outpt E&m [facility], [address], [place], [place], [address] , [place] tel: [phone] [facility] Pelvic pain 7 Duerinckx Marcela. [address], [place], [place], [address], . tel:[phone] Referring Provider: Arun Caballero, [address], [place], [address] . tel:[phone] Family History Family Member Type Diagnosis Age At Onset Mother Problem (finding) Ovarian Cancer Mother Problem (finding) Hypertension PAT Aunt Problem (finding) Thyroid Disease MAT Aunt Problem (finding) Breast Cancer MATGrandmother Problem (finding) Ovarian Cancer MATGrandmother Problem (finding) Diabetes Payers Payer name Insurance type Covered constitution party ID Authoriza tion(s) [facility] HMO / Choice Plus CI [id number] Social History Type Description Quantity Date Captured [...] Referral Referred To: J Carlos WINTERS, Misael [address] [place], [place], [phone] Ordered: Referrals: Gastroenterology - Misael Whitman MD [...]
[2025-02-18 20:21] VITALS: BP 113/88; PULSE 71; RESP 18; TEMP 36.7; O2SAT 100
--- OUTSIDE RECORDS SUMMARY | 2025-02-18 22:28 | XMS_ITS | Continuity of Care Document ---
Author Organization [facility] Address [address] [place] [address] Phone Care Team Providers Care Blanket Maker Name Role Phone Federico WINTERS, Arun Unavailable [...] Diagnoses Date Provider Providers Copied on Encounter [facility], [address], [place], [place], [address] , [place] tel: [phone] [facility] No Information 1 Federico Dias. [facility], [address], [place]. tel:[phone] Offic/outpt E[facility]m [facility], [address], [place], [place], [address] , [place] tel: [phone] [facility] Low grade squamous intraepithelial lesion on cytologic smear of cervix (LGSIL)Unprotecte d sexual intercourseBirth control counseling 0 Darnell Beatty. [address] [place], [place], [address], [place]. tel:[phone] Referring Provider: Arun Caballero, [address] [facility] [address], [place], [address] . tel:[phone] Offic/outpt E&m Estab Mod-hi 2 [facility], [address], [place], [place], [address] , [place] tel:[phone] [facility] RLQ abdominal pain Mar-0 6-202 0 Federico Dias. [address], [place], [place], [address], [place]. tel:[phone] Referring Provider: Arun Caballero, [address], [place], [address] . tel:[phone] Offic/outpt E&m Estab Mod-hi 2 [facility], [address], [place], [place], [address] , [place] tel: [phone] [facility] Left ovarian cystAcute diarrhea Mar-0 4-202 0 Eileensandrarj Jaci. [address], [place], [place], [address], [place]. tel:[phone] Referring Provider: Arun Caballero, [address], [place], [address] . tel:[phone] [facility], [address], [place], [place], [address] , [place] tel: [phone] [facility] Recurrent loss Dec-0 3-201 9 Federico Dias. [address], [place], [place], [address], [place]. tel:[phone] Referring Provider: Arun Caballero, [address], [place], [address] . tel:[phone] [facility], [address], [place], [place], [address] , [place] tel: [phone] [facility] Recurrent loss Jun- 6-201 9 Federico Dias. [address], [place], [place], [address], [place]. tel:[phone] [facility], [address], [place], [place], [address] , [place] tel: [phone] [facility] Recurrent loss Jun- 6-201 9 Federico Dias. [address], [place], [place], [address], [place]. tel:[phone] Referring Provider: Arun Caballero, [address], [place], [address] . tel:[phone] Preven E&m Estab Pt; [age] Yr [facility], [address], [place], [place], [address] , [place] tel:[phone] [facility] Encntr for sportspersons exam (general) (routine) w/o abn findingsEncounter for screening for malignant neoplasm of cervixCIN I (cervical intraepithelial neoplasia I) 9 Federico Dias. [address], [place], [place], [address], [place]. tel:[phone] Referring Provider: Arun Caballero, [address], [place], [address] . tel:[phone] Offic/outpt E&m Estab Low-mod [facility], [address], [place], [place], [address] , [place] tel: [phone] [facility] LGSIL on Pap smear of cervixCervical high risk human papillomavirus (HPV) DNA test positive 9 Duerin[place] Marcela. [address], [place], [place], [address], [place]. tel:[phone] Referring Provider: Arun Caballero, [address], [place], [address] . tel:[phone] [facility], [address], [place], [place], [address] , [place] tel: [phone] [facility] LGSIL on Pap smear of cervix 8 Federico Dias. [address], [place], [place], [address], [place]. tel:[phone] Referring Provider: Arun Caballero, [address], [place], [address] . tel:[phone] Preven E&m Estab Pt; 18-39 Yr [facility], [address], [place], [place], [address] , [place] tel: [phone] [facility] Encntr for sportspersons exam (general) (routine) w/o abn findingsEncounter for screening for malignant neoplasm of cervix 8 Federico Dias. [address], [place], [place], [address], [place]. tel:[phone] Referring Provider: Arun Caballero, [address], [place], [address] . tel:[phone] Offic/outpt E&m [facility] 2 [facility], [address], [place], [place], [address] , [place] tel: [phone] [facility] Atrophic endometriumDUB (dysfunctional uterine bleeding)Pelvic pain 8 Federico Dias. [address], [place], [place], [address], [place]. tel:[phone] Referring Provider: Arun Caballero, [address], [place], [address] . tel:[phone] Offic/outpt E&m [facility] 4 [facility], [address], [place], [address] , [place] tel: [phone] [facility] DUB (dysfunctional uterine bleeding)Pelvic painFatigue, unspecified type 8 Duerin[place]x Marcela. [address], [place], [place], [address], [place]. tel:[phone] Referring Provider: Arun Caballero, [address], [place], [address] . tel:[phone] Offic/outpt E&m [facility], [address], [place], [place], [address] , [place] tel: [phone] [facility] Pelvic pain 7 Duerinckx Marcela. [address], [place], [place], [address], . tel:[phone] Referring Provider: Arun Caballero, [address], [place], [address] . tel:[phone] Family History Family Member Type Diagnosis Age At Onset Mother Problem (finding) Ovarian Cancer Mother Problem (finding) Hypertension PAT Aunt Problem (finding) Thyroid Disease MAT Aunt Problem (finding) Breast Cancer MATGrandmother Problem (finding) Ovarian Cancer MATGrandmother Problem (finding) Diabetes Payers Payer name Insurance type Covered alliance party ID Authoriza tion(s) [facility] HMO / Choice Plus CI [id number] Social History Type Description Quantity Date Captured Comments Sex Female Smoking Status No Information Sexual Orientation Straight or heterosexual Chief Complaint And Reason For Visit No Information Reason For Referral Reason For Referral No Information Plan Of Treatment Date Type Action Status Goal Depression screening. Due on due Goal Influenza vaccine. Due on due Goal Pap/HPV testing. Due on due Goal Td vaccine. Due on due Goal Tdap. Due on due Referral Referred To: J Carlos WINTERS, Misael [address] [place], [place], [phone] Ordered: Referrals: Gastroenterology - Misael Whitman MD [...]
[2025-02-18] MEDS: TETANUS,DIPHTHERIA,AC PERTUSSIS ADULT (0.5 ML) BOOSTRIX IM (22:41)
--- NOTE | 2025-02-18 23:01 | ED_ITS ---
HPI - Wound/Laceration General Chief Complaint: Wound/Laceration Stated Complaint: laceration to thumb Time Seen by Provider: 02/18/25 21:58 History of Present Illness HPI narrative: Patient is a 34-year-old female who presents to the ER with a laceration to her left thumb. She reports she was using a mandolin slicer approximately 12 hours prior to arrival when she sliced her thumb open. Patient endorses a linear laceration that is bleeding intermittently throughout the day. She is unsure when she last received her tetanus immunization. 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 She denies any decreased range of motion, pus from the site, stiffness to the joints, numbness or tingling. Related Data Home Medications ?Medication ?Instructions ?Recorded ?Confirmed ?Last Taken ?Type cholecalciferol (vitamin D3) 50 50 mcg PO DAILY 04/15/23 02/08/25 Unknown History mcg (2,000 unit) capsule fexofenadine 180 mg tablet 180 mg PO DAILY 04/15/23 02/08/25 Unknown History (Nuzhat Lind) methotrexate sodium 2.5 mg tablet 2.5 mg PO WEEKLY 07/13/23 02/08/25 Unknown History etanercept 25 mg/0.5 mL 25 mg subcut WEEKLY 08/14/24 02/08/25 Unknown History subcutaneous solution (Enbrel) lisdexamfetamine 10 mg capsule mg 01/04/25 02/08/25 Unknown History Allergies Allergy/AdvReac Type Severity Reaction Status Date / Time fluticasone (From Advair Allergy Severe Swelling Verified 02/18/25 20:24 Diskus) of Lip/Tongue/Throat salmeterol (From Advair Allergy Severe Swelling Verified 02/18/25 20:24 Diskus) of Lip/Tongue/Throat prednisone AdvReac Intermediate Dizziness Verified 02/18/25 20:24 Review of Systems Review of Systems: All systems reviewed & are unremarkable except as noted in HPI and below PMFSH Past Medical History Medical History Sjogren's disease Rheumatoid arthritis Ovarian cyst IBS (irritable bowel syndrome) Chronic headaches GERD with esophagitis Mixed connective tissue disease ADHD Surgical History Surgical History H/O laparoscopy lysis of adhesions H/O sinus surgery H/O colposcopy with cervical biopsy Family History Family History Father Brain cancer Alcohol abuse Heart disease Mother Alcohol abuse Hypertension Depression Asthma Sibling Asthma Depression Grandparent Alcohol abuse Asthma Diabetes mellitus Hypertension Depression Grandparent Alcohol abuse Social History Social History Social History: Smoking status: Never smoker Second hand tobacco smoke exposure: No Alcohol intake: never Substance use: never Substance use type: does not use Do You Feel Safe in your Home?: Yes Lack of Transportation: No Lack of Food: Never True Current Housing: I Have Housing Concerned About Future Housing: No Difficulty Paying Gas/Electric Bills: No Difficulty Paying for Meds: No Currently Unemployed: No Education: Master's Degree or Higher Difficulty w/ Childcare or Family Care: No Living arrangements: alone 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 HEAD: Normocephalic, atraumatic. NECK: Supple. No adenopathy, no masses. RESPIRATORY: Airway patent, respirations nonlabored. Clear to auscultation bilaterally, no rales, rhonchi, wheezing. CARDIOVASCULAR: Regular rate and rhythm without murmurs, rubs, or gallops. Peripheral pulses 2+ and equal bilaterally. ABDOMINAL: Soft, nontender, nondistended, no hepatosplenomegaly. Normoactive BS. MUSCULOSKELETAL: Moves all extremities. Strength/ROM intact without gross deformities. SKIN: Warm, dry, normal color. No rashes. NEURO: A&O X3. Speech clear. Cranial nerves II-XII intact. No ataxic movements. PSYCHIATRIC: Appropriate mood and affect. Normal interaction. Course Vital Signs Vital signs: Vital Signs Temperature 36.7 C 02/18/25 20:21 Pulse Rate 71 02/18/25 20:21 Respiratory Rate 18 02/18/25 20:21 Blood Pressure 113/88 02/18/25 20:21 Pulse Oximetry 100 02/18/25 20:21 Oxygen Delivery Room Air 02/18/25 20:21 Temperature 36.7 C 02/18/25 20:21 Pulse Rate 71 02/18/25 20:21 Respiratory Rate 18 02/18/25 20:21 Blood Pressure 113/88 02/18/25 20:21 Pulse Oximetry 100 02/18/25 20:21 Oxygen Delivery Room Air 02/18/25 20:21 MDM - Wound/Laceration MDM Narrative Medical decision making narrative: Patient is a 34-year-old female who presents to the ER with a laceration to her left thumb. She reports she was using a mandolin slicer approximately 12 hours prior to arrival when she sliced her thumb open. Patient endorses a linear laceration that has bleeding intermittently throughout the day. She reports she attempted to put glue on her skin to close the laceration, but it has not held well. She is unsure when she last received her tetanus immunization. 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 She denies any decreased range of motion, pus from the site, stiffness to the joints, numbness or tingling. Diagnosis: Left thumb laceration Patient Education/Shared MDM: Patient's left thumb was clean, and skin glue was reapplied to close the wound. She endorses improvement of symptoms following laceration closure. Patient strongly advised to follow-up with her PCP as soon as possible. She will not be discharged home with any new prescriptions. Strict return precautions provided. Patient verbalized understanding and is in agreement with plan. Vital signs stable at time of discharge. All questions a nswered. Differential Diagnosis Differential diagnosis: Likely laceration, abrasion and avulsion of skin Discharge Plan Discharge Clinical Impression: Laceration of left thumb Patient Disposition: Home Condition: Stable Instructions: Antibiotic Form, Laceration (ED), Skin Adhesive Care (ED) Additional Instructions: Please return to the ER with any worsening symptoms. Follow-up with primary care provider as needed. Take all regularly scheduled medications. Patient Language: Icelandic Prescriptions: No Action lisdexamfetamine 10 mg capsule (DME) Aerochamber MV Spacer See Rx Instructions .Route Qty: 1 0RF Rx Instructions: As directed cholecalciferol (vitamin D3) 50 mcg (2,000 unit) capsule 50 mcg PO DAILY Patient Comments: 3000 daily fexofenadine [Nuzhat Hives] 180 mg tablet 180 mg PO DAILY Ubrelvy 100 mg tablet 100 mg PO ONCE PRN (Reason: migraine headache) Qty: 14 3RF Rx Instructions: as a single dose; may repeat once in >=2 hours after first dose if needed mupirocin 2 % ointment 1 applic topical BID Qty: 22 0RF albuterol sulfate 90 mcg/actuation HFA aerosol inhaler 2 puff inhalation QID PRN (Reason: shortness of breath or wheezing) Qty: 6.7 0RF methylprednisolone [Medrol (Lester)] 4 mg tablets,dose pack See Rx Instructions .ROUTE .COMPLEX Qty: 21 0RF Rx Instructions: orally per package directions Spiriva Respimat 1.25 mcg/actuation mist 2 puff inhalation Q24H Qty: 4 0RF methotrexate sodium 2.5 mg tablet 2.5 mg PO WEEKLY Rx Instructions: 8 tablets per week spironolactone 50 mg tablet 50 mg PO DAILY Qty: 90 3RF bupropion HCl [Wellbutrin SR] 100 mg tablet sustained-release 12 hr 100 mg PO DAILY Qty: 30 0RF azelastine 137 mcg (0.1 %) spray,non-aerosol See Rx Instructions .ROUTE .COMPLEX Qty: 30 5RF Dose Instruction: SPRAY ONCE IN EACH NOSTRIL EVERY 12 HOURS DIRECTED Rx Instructions: SPRAY ONCE IN EACH NOSTRIL EVERY 12 HOURS DIRECTED Enbrel 25 mg/0.5 mL solution 25 mg subcut WEEKLY Patient Comments: as per rheum folic acid 1 mg tablet See Rx Instructions .ROUTE .COMPLEX Qty: 90 0RF Dose Instruction: TAKE 1 TABLET BY MOUTH DAILY Rx Instructions: TAKE 2 TABLET BY MOUTH DAILY hydroxychloroquine 300 mg tablet 300 mg PO DAILY Qty: 60 0RF Qulipta 60 mg tablet 60 mg PO DAILY Qty: 90 4RF norethindrone (contraceptive) 0.35 mg tablet 0.35 mg PO DAILY Qty: 84 0RF oxybutynin chloride 5 mg tablet extended release 24hr See Rx Instructions .ROUTE .COMPLEX Qty: 90 0RF Dose Instruction: TAKE 1 TABLET BY MOUTH DAILY Rx Instructions: TAKE 1 TABLET BY MOUTH DAILY benzonatate 100 mg capsule 100 mg PO BID PRN (Reason: cough) Qty: 14 0RF Follow-up/Referrals: Tha Gurrola MD [Primary Care Provider] - Time of Disposition: 23:22
[2025-02-18 23:37] VITALS: BP 117/76; PULSE 76; RESP 16; TEMP 37.2; O2SAT 97
== END 2025-02-18 23:38 | disposition home or self-care (01) ==
PROVIDERS: Emergency Provider Registered Nurse; PCP Family Medicine
DX: S61.012A Laceration without foreign body of left thumb without damage to nail, initial encounter (principal); M06.9 Rheumatoid arthritis, unspecified; K21.9 Gastro-esophageal reflux disease without esophagitis; F90.9 Attention-deficit hyperactivity disorder, unspecified type; W26.8XXA Contact with other sharp object(s), not elsewhere classified, initial encounter; Z23 Encounter for immunization
CPT/HCPCS: 90471; 90715; 99282

== ENCOUNTER 2025-07-17 13:31 | Outpatient (CLI) | payer OTHER, SELFPAY ==
--- NOTE | ~2025-07-17 | MR_ITS ---
EXAMINATION: MR brain/brain stem wo/w con DATE: 07/17/2025 14:22 INDICATION: Other speech disturbances. Left facial numbness. Vertigo. Dizziness. TECHNIQUE: Magnetic resonance imaging (MRI) of the brain and brainstem was performed without and with 10 mL MultiHance intravenous contrast. COMPARISON: Head CT 11/06/2024 FINDINGS: There is no intracranial hemorrhage, acute infarction, or abnormal intracranial mass lesion. The ventricles are normal in size. There is anteroposterior elongation of the ocular globes. There is mild mucosal thickening in the left sphenoid sinus. There are surgical changes of the paranasal sinuses. The mastoid air cells are normal. IMPRESSION: 1. Normal brain. Reviewed, dictated and finalized at location E. IMPRESSION: 1. Normal brain.
== END 2025-07-17 13:32 | disposition home or self-care (01) ==
PROVIDERS: PCP Family Medicine; Visit Provider Psychiatry & Neurology Neurology
DX: R47.89 Other speech disturbances (principal); G43.909 Migraine, unspecified, not intractable, without status migrainosus; F98.8 Other specified behavioral and emotional disorders with onset usually occurring in childhood and adolescence; M35.07 Sjogren syndrome with central nervous system involvement; M06.9 Rheumatoid arthritis, unspecified
CPT/HCPCS: 70553; A9577